=== PATIENT | female | born 1945 | race Caucasian/White ===

== ENCOUNTER → 2017-09-04 13:40 | Outpatient (CLI) | payer MEDICARE, SELFPAY | PROVIDERS: Family Provider Internal Medicine; PCP Internal Medicine; Visit Provider Nurse Practitioner Adult Health | DX: N39.0 Urinary tract infection, site not specified (principal) | CPT/HCPCS: 87086; 87088 ==

== ENCOUNTER 2017-11-21 14:32 | Emergency (ER) | payer MEDICARE, SELFPAY ==
[2017-11-21 14:33] VITALS: BP 152/80; PULSE 78; RESP 16; TEMP 36.7; O2SAT 98; BMI 25.7
--- NOTE | 2017-11-21 15:07 | ED.VISSUMM ---
- ER Visit Summary Date of Service: 11/21/17 Chief Complaint: I think I am dehydrated History of Present Illness: The patient is a 72 F who says that she believes that she is dehydrated. Yesterday she started with nausea and vomiting. She just has not felt well. She does admit to some dizziness with standing. She is also been having some watery diarrhea. She tried Imodium without any relief. She feels thirsty and has been using Pedialyte at home. She does have lower abdominal cramping but denies any other symptoms. 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 Physical Examination: Vital signs reviewed. HEENT exam unremarkable. Heart is regular rate and rhythm without murmurs. Lungs are clear to auscultation. Abdomen is soft and nontender. Extremities reveal no edema. Skin exam normal. Neurologic exam normal. Test Results: Labs are normal Emergency Department Course and Treatment: Laboratory studies are unremarkable. Patient was given IV fluids as well as oral Zofran and Tylenol. She feels improved. This likely is a GI illness. She will continue the Imodium at home. Will increase hydration. I will give her Zofran ODT for home. Will follow up with PCP Treatment Plan: [] Disposition: Discharge Impression: Nausea vomiting and diarrhea This note was generated with [employer] dictation software. It may contain incorrect words, spelling, and punctuation that were not noted in review of the chart prior to signing ED Disposition - Plan for ED Patient: Chief Complaint: General Illness Referrals: Magda Ayala DO [Primary Care Provider] -
[2017-11-21] MEDS: 0.9% Normal Saline 1,000 ML 999 ML IV (15:19)
[2017-11-21 15:29] LABS: Absolute Lymphocyte Count 1.78 X10^3/ul (0.83-4.51); Absolute Neutrophil Count 3.1 X10^3/uL (2.0-7.7); Basophil# 0.01 X10^3/uL; Basophil% 0.2 % (0-1); Eosinophil# 0.09 X10^3/uL; Eosinophils% 1.6 % (0-5); Hematocrit 46.3 % (37-47); Hemoglobin 15.9 g/dl (12.0-15.0); Lymphocyte # 1.78 X10^3/ul (4.0); Lymphocyte % 31.6 % (19-41); Mean Corp Hgb Conc 34.3 g/gl (32-36); Mean Corpuscular Hgb 33.2 pg (27.0-32.0); Mean Corpuscular Volume 96.7 fL (81-99); Mean Platelet Vol. 10.5 fl (6.2-12.0); Monocyte# 0.68 X10^3/uL; Monocyte% 12.1 % (0-10); Neutrophil # 3.07 X10^3/uL (2.7-7.7); Neutrophil % 54.5 % (47-70); Platelet Count 143 K/mm3 (150-450); RBC Distribution Width SD 41.6 fl (35.1-43.9); Red Blood Count 4.79 M/mm3 (4.2-5.4); White Blood Count 5.6 K/mm3 (4.4-11.0)
[2017-11-21 15:30] LABS: POSITIVE COUNT NO; POSITIVE DIFFERENTIAL NO; POSITIVE MORPHOLOGY NO
[2017-11-21 15:44] LABS: AST(SGOT) 30 U/L (15-37); Alanine Aminotransfer ALT/SGPT 41 U/L (13-56); Albumin, Serum 3.8 g/dL (3.2-5.0); Alkaline Phosphatase 66 U/L (45-117); Anion Gap 7 (5-15); BUN 19 mg/dL (7-18); BUN/Creat Ratio 18.4 RATIO (10-20); Calcium,Total 9.3 mg/dL (8.5-10.1); Chloride 101 mmol/L (98-107); Creatinine, Serum 1.03 mg/dL (0.55-1.02); EST Glomerular Filtration Rate 56 mL/min (>60); Est Glom Filt Rate - Afr Amer 67 mL/min (>60); Globulin 3.8 g/dL (2.2-4.2); Glucose 98 mg/dL (74-106); Lipase 167 U/L (73-393); Potassium 4.3 mmol/L (3.5-5.1); Protein, Total 7.6 g/dL (6.4-8.2); Sodium Level 136 mmol/L (136-145)
--- NOTE | 2017-11-21 15:51 | ED.DEP ---
ED Disposition - Plan for ED Patient: Disposition: Home or Assisted Living Chief Complaint: General Illness Instructions: ED Diet Vomiting Diarrhea Prescriptions: Ondansetron [Zofran Odt] 4 mg PO Q8H PRN PRN #10 tab PRN Reason: Nausea Referrals: Magda Ayala DO [Primary Care Provider] -
[2017-11-21] MEDS: Acetaminophen 500 MG Tablet 1000 MG PO (15:57)
[2017-11-21] MEDS: Ondansetron ODT 4 MG Tablet PO (15:57)
[2017-11-21 16:02] VITALS: BP 127/69; PULSE 71; RESP 16; O2SAT 98
== END 2017-11-21 16:07 | disposition home or self-care (01) ==
PROVIDERS: Emergency Provider Emergency Medicine; Family Provider Internal Medicine; PCP Internal Medicine
DX: R11.2 Nausea with vomiting, unspecified (principal); R19.7 Diarrhea, unspecified; I10 Essential (primary) hypertension; K58.9 Irritable bowel syndrome, unspecified; Z79.01 Long term (current) use of anticoagulants; Z79.899 Other long term (current) drug therapy; Z87.19 Personal history of other diseases of the digestive system
CPT/HCPCS: 80053; 83690; 85025; 96360; 99284; J7030; A4216

== ENCOUNTER → 2018-05-13 15:58 | Outpatient (CLI) | payer MEDICARE, SELFPAY ==
--- NOTE | 2018-05-13 16:03 | VDLE_ITS ---
[id number] VL^VDUL^Venous Duplex US- Unilateral [id number] [facility] Venous Doppler [address] [place] [address] Ordering Physician: Magda Ayala TAG_ENDED TAG_START Name: PARESH LIVINGSTON Study Date: 05/13/2018 04:08 PM Patient Location: [facility] : 1945 Gender: Female Age: 72 yrs TAG_ENDED Reason For Study: PAIN RIGHT LEFT CFV is compressible, spontaneous, competent GSV is normal. and demonstrates pulsatile venous flow. CFV is compressible, spontaneous, competent, Procedure and demonstrates pulsatile venous flow. Exam performed in department. FV is compressible, spontaneous, phasic, A preliminary report was called and/or faxed competent and demonstrates normal to Dr Ayala. augmentation. POP V is compressible, spontaneous, phasic, competent and demonstrates normal augmentation. T/P Trunk is compressible. PTV is compressible. LT PerV is compressible. Left SSV is dilated and NONCOMPRESSIBLE proximally. Left varicosity in calf is dilated and partially compressible. <> Interpretation Summary Deep veins of the left lower extremity are patent and compressible segmentally. There is no evidence of left lower extremity deep vein thrombosis. Valvular competence appears intact within the proximal deep venous system on the left . The left greater saphenous vein appears patent and compressible segmentally. Acute superficial thrombophlebitis is noted in the proximal portion of the left small saphenous vein, as well as superficial varicosities in the left calf. Pulsatile venous flow is noted in the common femoral veins bilaterally, which may be indicative of elevated central venous pressure. Clinical correlation is advised. TAG_START TAG_ENDED Ordering Physician: Magda Ayala Referring Physician: Magda Ayala Performed By: Dean, Mikayla, RDCS, RVT
== END ==
PROVIDERS: Family Provider Internal Medicine; PCP Internal Medicine; Referring Provider Internal Medicine; Visit Provider Internal Medicine
DX: M79.605 Pain in left leg (principal)
CPT/HCPCS: 93971

== ENCOUNTER → 2018-05-14 10:20 | Outpatient (CLI) | payer MEDICARE, SELFPAY ==
--- NOTE | 2018-05-14 10:22 | BI_ITS ---
MAMMOGRAPHY - BILATERAL SCREENING REASON FOR EXAM: Female, 72 years old. Routine annual screening examination. PERTINENT HISTORY: Mother with breast cancer. History of prior bilateral breast reduction surgery. TECHNIQUE: Digital bilateral breast radhika (3D mammographic acquisition) in the CC and MLO projections. 2-D mediolateral oblique (MLO) and craniocaudad (CC) views of both breasts were obtained. CAD: Full Field Digital Mammography with Computer Added Detection was performed. COMPARISON: Comparison is made with prior study dated April 30, 2017 and November 09, 2015. FINDINGS: Breast Composition: There are scattered areas of fibroglandular density. There are no dominant masses or suspicious calcifications. Stable small bilateral axillary lymph nodes as well as scattered bilateral microcalcifications. No other significant abnormalities are identified. There has been no significant change since the prior study. BI/SCREENING MAMM (CAD), BILAT IMPRESSION: Stable bilateral screening mammogram. Yearly follow-up mammogram recommended. (A) ASSESSMENT CATEGORY: BIRADS Category 2: Benign. A letter regarding these results will be sent to the patient by the facility within 30 days. Approximately 10% of breast cancers are not detected by mammography. A normal mammogram should not delay biopsy of a clinically suspicious abnormality. [id number] Electronically Signed: Oli Lynn MD at 15:25 EDT Tel [phone], Service support ,
--- NOTE | 2018-05-14 10:26 | BD_ITS ---
STUDY: DUAL ENERGY X-RAY ABSORPTIOMETRY / DXA REASON FOR EXAM: Female, 72 years old. The patient is postmenopausal. Loss of height. TECHNIQUE: Bone Mineral Density (BMD) measurements of lumbar spine and bilateral hips were obtained. COMPARISON: Comparison is made with prior study dated November 09, 2015. FINDINGS: Lumbar Spine (L1-L4): g/cm2 (1.880) / T-score (5.9) / Z-score (7.7) Findings are suggestive of normal bone density with a low fracture risk. Left Femur Total: g/cm2 (1.092) / T-score (0.7) / Z-score (2.4) Left Femoral Neck: g/cm2 (1.067) / T-score (0.2) / Z-score (2.1) Right Femur Total: g/cm2 (1.109) / T-score (0.8) / Z-score (2.5) Right Femoral Neck: g/cm2 (1.066) / T-score (0.2) / Z-score (2.1) The T-Scores on the most recent prior examination were: Lumbar Spine (L1-L4): There has been improvement of bone density since the previous examination. Left Femur Total: which represents a worsening of 0.4%. Right Femur Total: which represents a worsening of 0.5%. BD/Dexa Bone Density Study IMPRESSION: The patient is considered normal as outlined below according to World Ino Organization (WHO) criteria with a low fracture risk. There has been worsening of bone density since the previous examination. Reference Information: The T-score is the number of standard deviations above or below the standard which is normal for young adults at their peak bone mineral density. The World Health Organization (WHO) interprets the T-scores as follows: Above -1 Normal bone density Between -1 and -2.5 Osteopenia Equal to / or below -2.5 Osteoporosis As a practical clinical guideline, osteopenia may be graded as follows: Mild -1 through -1.5 Moderate -1.6 through -2.0 Severe -2.1 through -2.4 The Z-score is the number of standard deviations above or below age-matched controls. A Z-score of less than -1.5 would be considered abnormal. References: 1. NIH Osteoporosis and Related Bone Diseases http://www.osteo.org 2. International Society for Clinical Densitometry http://www.iscd.org 3. National Osteoporosis Foundation http://www.nof.org Electronically Signed: Oli Lynn MD at 10:06 EDT Tel [phone], Service support ,
== END ==
PROVIDERS: Family Provider Internal Medicine; PCP Internal Medicine; Referring Provider Internal Medicine; Visit Provider Internal Medicine
DX: Z12.31 Encounter for screening mammogram for malignant neoplasm of breast (principal); Z78.0 Asymptomatic menopausal state
CPT/HCPCS: 77063; 77067; 77080

== ENCOUNTER → 2018-06-17 12:05 | Outpatient (CLI) | payer MEDICARE, SELFPAY ==
--- NOTE | 2018-06-17 12:15 | MRI_ITS ---
STUDY: MRI BRAIN WITH AND WITHOUT CONTRAST (ATTENTION INTERNAL AUDITORY CANALS - I.A.C.'s) REASON FOR EXAM: Female, 73 years old. dizziness x 2 months, L hearing loss TECHNIQUE: Standardized multiplanar fat and water weighted pulse sequences were obtained. 8 ml of Gadavist contrast material was administered intravenously for the contrast portion of the examination. COMPARISON: May 05, 2016 FINDINGS: Normal bilateral temporal bones. Normal bilateral internal auditory canals. There is no demonstrated intracanalicular or cisternal vestibular schwannoma (acoustic neuroma). There is no enhancement of the bilateral VIIth or VIIIth cranial nerves. Normal bilateral cochlea, vestibules and semicircular canals. There is mild cerebral atrophy with widening of the extra-axial spaces and ventricular dilatation. There are multiple white matter hyperintensities, distributed throughout the deep white matter tracts of the cerebral hemispheres, consistent with moderate chronic white matter ischemic changes. Normal bilateral basal ganglia. Normal thalami. Normal flow voids within the major intracranial circulation suggesting patency by spin echo criteria. Normal venous enhancement. There is no enhancing intra-axial or extra-axial abnormality. There is no extra-axial fluid accumulation. Normal sella turcica, pituitary gland, infundibular stalk, optic chiasm and hypothalamus. Normal tectal plate and pineal gland. There are chronic white matter ischemic changes of the ace. The midbrain and medulla are otherwise normal. Normal cerebellum. Normal basal cisterns. No demonstrated orbital abnormality, within the constraints of a routine brain study. There is mucoperiosteal inflammatory disease of the paranasal sinuses consistent with mild chronic sinusitis. MRI/Brain W/WO Contrast IMPRESSION: There is no demonstrated intracanalicular or cisternal vestibular schwannoma (acoustic neuroma). Moderate chronic microvascular ischemic changes. Electronically Signed: Kaila Arboleda MD at 11:31 EST Tel , Service support ,
[2018-06-17 12:46] LABS: CREATININE FINGERSTICK 0.9 mg/dL (0.55-1.02); EGFR FINGERSTICK > 60.0000 mL/min (>60)
== END ==
PROVIDERS: Family Provider Internal Medicine; PCP Internal Medicine; Referring Provider Otolaryngology; Visit Provider Otolaryngology
DX: Z01.812 Encounter for preprocedural laboratory examination (principal); R42 Dizziness and giddiness
CPT/HCPCS: 70553; A9585

== ENCOUNTER 2018-08-22 11:23 | Observation (INO) | payer MEDICARE, SELFPAY ==
[2018-08-22] VITALS (11 sets, daily range): BP systolic 160–216; BP diastolic 53–124; PULSE 55–68; RESP 14–18; TEMP 36.3–36.7; O2SAT 95–98; BMI 26.2; BMI 26.0
--- NOTE | 2018-08-22 11:48 | EKG12_ITS ---
Test Reason : DIZZINESS Blood Pressure : / mmHG Vent. Rate : 059 BPM Atrial Rate : 059 BPM P-R Int : 188 ms QRS Dur : 070 ms QT Int : 422 ms P-R-T Axes : 022 -09 058 degrees QTc Int : 417 ms Sinus bradycardia Septal infarct , age undetermined Abnormal ECG Confirmed by BILL MATTHEWS, RUPA ([id number]), video editor CHRISTY MAE ([id number]) on 08/27/2018 8:35:44 AM Referred By: EMILIA Confirmed By:RUPA KHAN MD
--- NOTE | 2018-08-22 11:48 | RAD_ITS ---
STUDY: X-RAY CHEST REASON FOR EXAM: Female, 73 years old. Vertigo TECHNIQUE: AP portable chest COMPARISON: CT chest 03/11/2015 FINDINGS: Small calcified granulomata, lungs otherwise clear. Normal cardiomediastinal silhouette, mitch and pleural margins. No acute osseous or upper abdominal process. RAD/Chest 1 View IMPRESSION: No acute cardiopulmonary process. Electronically Signed: Masoud Wynn MD at 13:13 EST Tel , Service support ,
--- NOTE | 2018-08-22 11:48 | CT_ITS ---
STUDY: CT BRAIN WITHOUT CONTRAST REASON FOR EXAM: Female, 73 years old. Headache, nausea. RADIATION DOSAGE (If Supplied By Facility): CTDIvol = ( 44.99 ) mGy, DLP = ( 796.11 ) mGycm TECHNIQUE: Transaxial CT imaging of the brain was performed without administration of intravenous contrast material. Coronal and sagittal 2-D MPR Individualized dose optimization techniques were used for this CT. COMPARISON: MRI brain 06/17/2018, 05/05/2016. CT sinus 07/30/2015. FINDINGS: There is mucoperiosteal thickening of the sphenoid sinuses, paranasal sinuses otherwise clear. Mastoid air cells and middle ear cavities are clear. Craniofacial osseous structures normal. Extracranial soft tissues including orbital contents are normal. There is mild symmetric expansion of lateral ventricles and extra axial spaces consistent with age-related atrophy. There are moderate partially confluent chronic low-density changes in the deep white matter bifrontal and biparietal and a focus within the ace, most consistent with chronic microvascular ischemic disease. There is no acute intracranial bleed, mass or mass effect nor any specific evidence of acute territorial infarct. CT/Brain/Head without Contrast IMPRESSION: No acute intercranial process. Chronic involutional features of the brain as described above, are concordant with those seen on prior MRI imaging. No definitive acute intracranial process is evident. Electronically Signed: Masoud Wynn MD at 13:10 EST Tel , Service support ,
[2018-08-22 12:10] LABS: Absolute Lymphocyte Count 1.66 X10^3/ul (0.83-4.51); Absolute Neutrophil Count 2.9 X10^3/uL (2.0-7.7); Basophil# 0.02 X10^3/uL; Basophil% 0.4 % (0-1); Eosinophil# 0.15 X10^3/uL; Eosinophils% 2.9 % (0-5); Hematocrit 44.4 % (37-47); Hemoglobin 14.6 g/dl (12.0-15.0); Lymphocyte # 1.66 X10^3/ul (4.0); Mean Corp Hgb Conc 32.9 g/gl (32-36); Mean Corpuscular Hgb 31.5 pg (27.0-32.0); Mean Corpuscular Volume 95.9 fL (81-99); Monocyte# 0.42 X10^3/uL; Monocyte% 8.1 % (0-10); Neutrophil # 2.93 X10^3/uL (2.7-7.7); Neutrophil % 56.4 % (47-70); Platelet Count 161 K/mm3 (150-450); RBC Distribution Width CV 12.6 % (11.6-14.6); RBC Distribution Width SD 43.5 fl (35.1-43.9); Red Blood Count 4.63 M/mm3 (4.2-5.4); White Blood Count 5.2 K/mm3 (4.4-11.0)
[2018-08-22 12:12] LABS: POSITIVE COUNT NO; POSITIVE DIFFERENTIAL NO; POSITIVE MORPHOLOGY NO
[2018-08-22] MEDS: 0.9% Normal Saline 1,000 ML 999 ML IV (12:12)
[2018-08-22] MEDS: Ondansetron 4 MG/2 ML Vial IV (12:12)
[2018-08-22] MEDS: LORazepam 2 MG/ML Syringe 0.5 MG IV (12:12)
[2018-08-22 12:26] LABS: Anion Gap 11 (5-15); BUN 17 mg/dL (7-18); BUN/Creat Ratio 23.2 RATIO (10-20); Calcium,Total 9.7 mg/dL (8.5-10.1); Chloride 106 mmol/L (98-107); Creatinine, Serum 0.73 mg/dL (0.55-1.02); EST Glomerular Filtration Rate 82 mL/min (>60); Est Glom Filt Rate - Afr Amer 99 mL/min (>60); Estimated Creatinine Clearance 47.27 ml/min; Glucose 92 mg/dL (74-106); International Normalized Ratio 1.1; Potassium 4.2 mmol/L (3.5-5.1); Sodium Level 144 mmol/L (136-145)
[2018-08-22 12:27] LABS: Partial Thromboplast Time 33.6 Seconds (24.1-36.2)
[2018-08-22 12:34] LABS: Bacteria 0 SEEN /hpf (None Seen); Mucous, Urine 0 SEEN /hpf (<or=2+); Red Blood Cells-Urine 0 SEEN /hpf (0-5); Squamous Epithelial Cells - UA 0 SEEN /hpf (5-10)
[2018-08-22 12:43] LABS: Color, Urine Yellow (Yellow); Glucose, Dipstick Normal (Normal); Ketone-Dipstick Negative (Negative); Leukocyte Esterase-Dipstick 100 /ul (Negative); Nitrite-Dipstick Negative (Negative); Occult Blood-Urine Negative /ul (Negative); Protein-Dipstick Negative (Negative); Specific Gravity, Urine 1.005 (1.002-1.030); Urine Bilirubin Dipstick Negative (Negative); Urine Clarity Clear (Clear); Urine Urobilinogen Normal (Normal)
[2018-08-22 12:46] LABS: White Blood Cells 0-5 SEEN /hpf (0-5)
--- NOTE | 2018-08-22 14:45 | ED.VISSUMM ---
- ER Visit Summary Date of Service: 08/22/18 Chief Complaint: Dizziness History of Present Illness: The patient is a 73 F who presents with dizziness intermittently for 3 days. It started on Sunday at 2 AM when she woke up. She was dizzy and felt the room spinning. She had an unsteady gait. She felt better on Sunday, yesterday, and then today she had worsening symptoms. She reports worsening vertigo, nausea, and a headache. She had dizziness in the past and saw ENT, but was not sure what caused her symptoms. She has a history of high blood pressure but is compliant with her medications. She also has a history of clotting disorders and ischemic colitis, so she takes Eliquis. No hearing symptoms. No recent fever. No neck pain. No vision changes, speech changes, focal weakness, or focal numbness. Physical Examination: Afebrile and vital signs unremarkable except for a blood pressure of 216/74. Patient is alert and oriented. No acute distress. HEENT exam unremarkable. Cranial nerves grossly intact. Heart regular. Lungs clear. Good strength and sensation. No focal or lateralizing neurologic abnormalities. Skin appears normal. Test Results: EKG showed sinus rhythm at a rate of 59. CBC and BMP unremarkable. Coags normal. Urinalysis unremarkable. Troponin normal. Chest x-ray normal. CT brain normal. Emergency Department Course and Treatment: Patient had an EKG which was unremarkable. She was placed on a monitor. Treated with fluids, Ativan, Zofran. Orthostatics were done and were negative. Patient had improvement of her symptoms but some continued dizziness. She remained hypertensive and was treated with labetalol. Her workup here was unremarkable. She had an MRI in the past which was unremarkable but has not had vascular imaging. I was concerned for acute vestibular syndrome. I was also concerned given her continued hypertension. I spoke with the hospitalist to admit for further care. Treatment Plan: As above Disposition: Admission Impression: 1. Vertigo 2. Hypertension This note was generated with [employer] dictation software. It may contain incorrect words, spelling, and punctuation that were not noted in review of the chart prior to signing ED Disposition - Plan for ED Patient: Referrals: Magda Ayala DO [Primary Care Provider] -
--- NOTE | 2018-08-22 14:49 | ED.DCSUM_ITS ---
- ER Visit Summary Date of Service: 08/22/18 Chief Complaint: Dizziness History of Present Illness: The patient is a 73 F who presents with dizziness intermittently for 3 days. It started on Sunday at 2 AM when she woke up. She was dizzy and felt the room spinning. She had an unsteady gait. She felt be tter on Sunday, yesterday, and then today she had worsening symptoms. She reports worsening vertigo, nausea, and a headache. She had dizziness in the past and saw ENT, but was not sure what caused her symptoms. She has a history of high blood pressure but is compliant with her medications. She also has a history of clotting disorders and ischemic colitis, so she takes Eliquis. No hearing symptoms. No recent fever. No neck pain. No vision changes, speech changes, focal weakness, or focal numbness. Physical Examination: Afebrile and vital signs unremarkable except for a blood pressure of 216/74. Patient is alert and oriented. No acute distress. HEENT exam unremarkable. Cranial nerves grossly intact. Heart regular. Lungs clear. Good strength and sensation. No focal or lateralizing neurologic abnormalities. Skin appears normal. Test Results: EKG showed sinus rhythm at a rate of 59. CBC and BMP unremarkable. Coags normal. Urinalysis unremarkable. Troponin normal. Chest x-ray normal. CT brain normal. Emergency Department Course and Treatment: Patient had an EKG which was unrem arkable. She was placed on a monitor. Treated with fluids, Ativan, Zofran. Orthostatics were done and were negative. Patient had improvement of her symptoms but some continued dizziness. She philipp ined hypertensive and was treated with labetalol. Her workup here was unremarkable. She had an MRI in the past which was unremarkable but has not had vascular imaging. I was concerned for acute ves tibular syndrome. I was also concerned given her continued hypertension. I spoke with the hospitalist to admit for further care. Treatment Plan: As above Disposition: Admission Impression: 1. Vertigo 2. Hypertension This note was generated with [employer] dictation software. It may contain incorrect words, spelling, and punctuation that were not noted in review of the chart prior to signing ED Disposition - Plan for ED Patient: Referrals: Magda Ayala DO [Primary Care Provider] -
--- NOTE | 2018-08-22 16:00 | MRI_ITS ---
STUDY: MRI BRAIN WITHOUT CONTRAST REASON FOR EXAM: Female, 73 years old. Hypertensive headache and dizziness TECHNIQUE: Standardized multiplanar fat and water weighted pulse sequences were obtained. COMPARISON: June 17, 2018 FINDINGS: Mild atrophy and moderate periventricular white matter ischemic changes with most severe involvement of the parieto-occipital regions as well as extension into the corpus callosum without mass effect or restricted diffusion Chronic ischemic changes with ace Normal bilateral basal ganglia. Normal thalami. There is no extra-axial fluid accumulation. Normal flow voids within the major intracranial circulation suggesting patency by spin echo criteria. Normal sella turcica, pituitary gland, infundibular stalk, optic chiasm and hypothalamus. Normal tectal plate and pineal gland. Normal midbrain, ace and medulla. Normal cerebellum. Normal basal cisterns. Normal bilateral temporal bones. Normal bilateral internal auditory canals. No demonstrated orbital abnormality, within the constraints of a routine brain study. Minor mucosal thickening of the ethmoid and sphenoid sinus. Normal calvarium and skull base. Normal visualized soft tissue structures. Normal visualized upper cervical spine. No significant change since prior exam MRI/Brain without Contrast IMPRESSION: Chronic periventricular white matter ischemic changes and chronic ischemic changes within the ace. No evidence for acute infarct Electronically Signed: Andrew Horton MD at 20:18 EST , Service support ,
--- NOTE | 2018-08-22 16:00 | MRI_ITS ---
STUDY: MRA OF THE HEAD WITHOUT CONTRAST REASON FOR EXAM: Female, 73 years old. Hypertensive headache TECHNIQUE: 3-D xlii-rj-eecdtf (TOF) imaging was performed with MIPs. The study was performed unenhanced. COMPARISON: None. FINDINGS: Normal bilateral petrous carotid arteries. Normal right cavernous carotid artery with a normal supraclinoid bifurcation. Normal left cavernous carotid artery with a normal supraclinoid bifurcation. Normal right A1 segments of the anterior cerebral artery. Normal left A1 segments of the anterior cerebral artery. Normal intact anterior communicating artery (ACOM). Normal bilateral A2 segments of the anterior cerebral arteries. Normal right M1 and M2 segments of the middle cerebral arteries, with a normal M1 bifurcation. Normal left M1 and M2 segments of the middle cerebral arteries, with a normal M1 bifurcation. Normal right posterior communicating artery (PCOM). Left posterior communicating artery not visualized consistent with normal variant Dominant left vertebral artery which is normal caliber. There is mild diffuse narrowing of the right vertebral which may be normal variant. Normal basilar artery with a normal basilar bifurcation. The visualized bilateral superior cerebellar (SCA) arteries are normal. Normal bilateral P1, P2 and visualized P3 segments of the posterior cerebral arteries. There is no demonstrated aneurysm of the [place] of [place]. There is no major vessel occlusion or hemodynamically significant stenosis. There is no demonstrated abnormality of the visualized brain. MRI/MRA Head ONLY without Contrast IMPRESSION: Normal MRA of the head Electronically Signed: Andrew Horton MD at 20:32 EST , Service support ,
--- NOTE | 2018-08-22 16:00 | MRI_ITS ---
STUDY: MRA NECK WITH AND WITHOUT CONTRAST REASON FOR EXAM: Female, 73 years old. Hypertensive headache TECHNIQUE: 3-D invf-ro-kynkii (TOF) imaging was performed in an 1.5 T MRI scanner. 7 ml of Gadavist was administered for the contrast enhanced images. COMPARISON: None. FINDINGS: RIGHT CAROTID ARTERIES: Normal right common carotid artery (CCA). Mild plaquing of the right common carotid bulb. Mild plaquing of the origin of the right internal carotid (ICA) artery without a hemodynamically significant stenosis. Normal visualized cervical portion of the right internal carotid artery. Normal origin of the right external carotid artery (ECA). LEFT CAROTID ARTERIES: Normal left common carotid artery (CCA). Mild plaquing of the left common carotid bulb. Mild plaquing of the origin of the left internal carotid (ICA) artery without a hemodynamically significant stenosis. Normal visualized cervical portion of the left internal carotid artery. Normal origin of the left external carotid artery (ECA). VERTEBRAL ARTERIES: Normal antegrade flow within the bilateral vertebral artery without a hemodynamically significant stenosis. MRI/MRA Neck WITH and W/O Contrast IMPRESSION: Mild atherosclerotic disease. No evidence for hemodynamically significant stenosis utilizing NASCET criteria Electronically Signed: Andrew Horton MD at 20:34 EST , Service support ,
[2018-08-22] MEDS: Lisinopril 20 MG Tablet PO (16:18)
--- NOTE | 2018-08-22 17:45 | HP.PCM_ITS ---
Problem List (1) Ataxia Status: Acute (2) Dizziness Status: Acute History of Present Illness Date of Admission: 08/22/18 Chief Complaint: Dizziness, ataxia The patient is a 73 year old F who was seen in the emergency room at [facility] with a chief complaint of dizziness and ataxia which began 48 hours ago. Patient states that she had a sensation of things spinning around her, she denies any headache, nausea, focal weakness, or vomiting. Patient had an episode of dizziness late last year and had an MRI of her auditory canals which did not show any abnormality. At that time the patient also had some hearing loss in her left ear which was attributed to viral illness. Workup in the emergency room included a CT of the brain which showed no acute pathology, all lab work was unremarkable. Patient's blood pressure was elevated initially at 216/74, repeat blood pressures remained elevated with her final blood pressure in the emergency room of 188/82-ER physician had given the patient IV labetalol prior to her discharge from the emergency room to the floor. Patient will be admitted to the PCU for ataxia and dizziness, MRA of the head and neck will be obtained as well as an MRI of the brain. Patient will remain on her current medications and her blood pressure will be monitored. Patient will be given an extra dose of lisinopril. NIH stroke scores will be obtained Past Medical History Past Medical History (Chronic Problems): Chronic Problems Dyslipidemia (Chronic) Benign hypertension (Chronic) Allergies amoxicillin [Amoxicillin] Allergy (Verified 08/22/18 11:25) Swelling azithromycin [From Zithromax] Allergy (Verified 08/22/18 11:25) Rash Penicillins Allergy (Verified 08/22/18 11:25) Hives Sulfa (Sulfonamide Antibiotics) Allergy (Verified 08/22/18 11:25) Angioedema sulfamethoxazole [From Septra] Allergy (Verified 08/22/18 11:25) Rash triamcinolone acetonide [From Nasacort AQ] Allergy (Verified 08/22/18 11:25) Rash trimethoprim [From Septra] Allergy (Verified 08/22/18 11:25) Rash codeine Adverse Reaction (Verified 08/22/18 15:03) Vomiting nitrofurantoin [From Macrobid] Adverse Reaction (Verified 08/22/18 11:25) Upset Stomach Home Medications: Ambulatory Orders Medication Instructions Recorded Atorvastatin Calcium [Lipitor] 20 mg PO QHS 08/05/13 Citalopram Hydrobromide [Celexa] 10 mg PO DAILY 08/05/13 Ergocalciferol [Vitamin D] 6,000 unit PO DAILY 08/05/13 Multivitamins,Ther W-Minerals 1 tablet PO DAILY 08/05/13 [Multivitamin With Minerals] Zolpidem Tartrate [Ambien] 10 mg PO QHS PRN PRN 08/05/13 Acetaminophen [Tylenol Tablet] 650 mg PO Q4H PRN PRN #20 tablet 08/08/13 Apixaban [Eliquis] 2.5 mg PO BID 11/21/17 Lisinopril [Prinivil] 20 mg PO DAILY 11/21/17 Metoprolol(XL)Succ [Toprol Xl 50 mg PO DAILY 11/21/17 (Beta Johan)] Ubidecarenone [Coq-10] 200 mg PO DAILY 08/22/18 Surgical History: cholecystectomy, - - Breast reduction, tubal ligation, phlebectomy left leg, knee arthroscopy Psychiatric History: No pertinent psych hx [employer] History: No pertinent [employer] history Lives: Spouse/ Significant Other Smoking Status: Never smoker Tobacco Use: Non-smoker Alcohol: None Drugs: None - *Family History Maternal History Items: No pertinent history Paternal History Items: Stroke Review of Systems Constitutional: Denies: Anorexia, Chills, Fever, Night Sweats, Malaise, Weakness , Weight Change, Fatigue Eyes: Denies: Cataracts, Conjunctivae Inflammation, Double vision, Drainage, Redness, Vision Change HEENT: Denies: Difficulty Swallowing, Dysphasia, Ear Pain, Eye Pain, Head Aches, Hearing Changes, Nasal bleeding, Nasal Congestion, Post Nasal Drip Cardiovascular: Denies: Chest Pain, Claudication, Chest Pressure, Chest Tightness, Edema, Orthopnea, Palpitations, Paroxysmal Noc. Dyspnea Respiratory: Denies: Cough, Hemoptysis, Pleuritic Pain, Shortness of Breath, Shortness of breath at rest, Shortness of breath upon exertion, Sputum production Gastrointestinal: Denies: Abdominal Pain, Constipation, Diarrhea, Hematemesis, Hematochezia, Nausea, Melena, Vomiting Genitourinary: Denies: Dysuria, Frequency, Hematuria, Hesitancy, Urgency Gynecological: Denies: Breast symptoms Musculoskeletal: Denies: Foot Pain, Hand Pain, Joint Pain, Joint stiffness, Joint swelling, Joint Tenderness, Leg Pain Skin: Denies: Dryness, Pruritis, Rash Neurological: Reports: Balance problems, - - Dizziness as outlined in chief complaint. Denies: Blurred vision, Double vision, Slurred speech, Difficulty swallowing, Focal weakness, Headaches, Incoordination, Numbness, Tingling Psychiatric: Denies: Anxiety, Depression, Homicidal Ideations, Suicidal Ideations Endocrine: Denies: Change in Body Habitus, Heat/ Cold Intolerance, Polydipsia, Polyuria Hematologic/ Lymphatic: Denies: Adenopathy, Anemia, Easy Bruising, Easy Bleeding, Petechiae, Purpura VTE Information - Inpt Only VTE Present on Admission: No VTE Mechan Device Prophylaxis: None VTE Pharm Prophylaxis ordered?: No Reason prophylaxis not ordered:: Medical Contraindication - Patient on Eliquis Patient Problems: Active and Suspected Problems Ataxia (Acute) Dizziness (Acute) - Physical Exam General: Alert, Oriented x3, Cooperative, No apparent distress, Well developed, Well nourished HEENT: Atraumatic, PERRLA, EOMI, Normocephalic Oral: Moist Mucosa Neck: Supple, No JVD, Negative Carotid Bruits, No Nuchal Rigidity, Trachea Midline, Thyroid Normal Size and Texture Lungs: Clear to auscultation, Normal air movement, No rhonchi, No wheeze, No rales Cardiovascular: Regular rate, Regular Rhythm, Normal S1, Normal S2, No murmurs, No Ectopic Activity, PMI Normal, No rub noted, No Gallop Abdomen: Bowel Sounds Present, Soft, Non Tender, Non-Distended, No hernias noted Extremities: No clubbing, No cyanosis, No edema, Capillary Refill Less than 3 Seconds Skin: No rashes, No breakdown Musculoskeletal: No Tenderness to Palpation of Joints or Extremities Neurological: Cranial nerves II-XII grossly intact, Neuro grossly intact, Sensory exam intact to light touch and pain, Coordination normal Psych/Mental Status: Normal Affect, Appropriate, Alert and oriented to time, place, person, mood and affect Vital Signs Temp Pulse Resp BP Pulse Ox 97.3 F L 61 16 188/82 H 97 08/22/18 16:01 08/22/18 16:01 08/22/18 16:01 08/22/18 16:08/22/18 16:01 Oxygen Delivery Method Room Air Weight: 75.2 kg Body Mass Index (BMI) 26.0 Laboratory Tests Past 24 Hrs 08/22/18 08/22/18 08/22/18 12:00 12:00 12:00 WBC 5.2 RBC 4.63 Hgb 14.6 Hct 44.4 MCV 95.9 MCH 31.5 MCHC 32.9 RDW 12.6 RDW Differential 43.5 Plt Count 161 MPV 11.0 Immature Gran % (Auto) 0.200 Neut % (Auto) 56.4 Lymph % (Auto) 32.0 [place] % (Auto) 8.1 Eos % (Auto) 2.9 Baso % (Auto) 0.4 Absolute Neuts (auto) 2.9 Absolute Lymphs (auto) 1.66 Total Counted Not Reportable PT 14.0 INR 1.1 APTT 33.6 Sodium 144 Potassium 4.2 Chloride 106 Carbon Dioxide 27.0 Anion Gap 11 BUN 17 Creatinine 0.73 Estim Creat Clear Calc 47.27 Est GFR (MDRD) Af Amer 99 Est GFR (MDRD) Non-Af 82 BUN/Creatinine Ratio 23.2 H Glucose 92 Calcium 9.7 Troponin I < 0.015 Urine Color Urine Clarity Urine pH Ur Specific [place] Urine Protein Urine Glucose (UA) Urine Ketones Urine Occult Blood Urine Nitrite Urine Bilirubin Urine Urobilinogen Ur Leukocyte Esterase Urine RBC Urine WBC Ur Squamous Epith Cells Urine Bacteria Urine Mucus 08/22/18 12:15 WBC RBC Hgb Hct MCV MCH MCHC RDW RDW Differential Plt Count MPV Immature Gran % (Auto) Neut % (Auto) Lymph % (Auto) [place] % (Auto) Eos % (Auto) Baso % (Auto) Absolute Neuts (auto) Absolute Lymphs (auto) Total Counted PT INR APTT Sodium Potassium Chloride Carbon Dioxide Anion Gap BUN Creatinine Estim Creat Clear Calc Est GFR (MDRD) Af Amer Est GFR (MDRD) Non-Af BUN/Creatinine Ratio Glucose Calcium Troponin I Urine Color Yellow Urine Clarity Clear Urine pH 7.0 Ur Specific [place] 1.005 Urine Protein Negative Urine Glucose (UA) Normal Urine Ketones Negative Urine Occult Blood Negative Urine Nitrite Negative Urine Bilirubin Negative Urine Urobilinogen Normal Ur Leukocyte Esterase 100 H Urine RBC 0 SEEN Urine WBC 0-5 SEEN Ur Squamous Epith Cells 0 SEEN Urine Bacteria 0 SEEN Urine Mucus 0 SEEN Assessment/Plan All Active Problems Ataxia (Acute) Dizziness (Acute) Hyperkalemia (Resolved) Leukocytosis (Resolved) Lower GI bleed (Resolved) #1 dizziness-etiology unclear at this time, it is possible the patient has benign vertigo-patient will be placed and observation status on PCU, NIH scores will be monitored, patient will have an MRA of her head and neck as well as an MRI of her brain tomorrow. Patient will remain on her home meds, I will not place her on an aspirin due to the fact she is on Eliquis. She will be seen by PT and OT. I do not believe patient needs an echocardiogram ordered at this time and I do not believe that she needs to see neurology in consultation at this time. Patient will be placed on Valium 2 mg 4 times a day to see if this helps with her dizziness. #2 uncontrolled hypertension-patient will be given an extra dose of lisinopril this evening, her blood pressure will be monitored #3 history of coagulopathy and multiple VTE's-patient states that she is on Eliquis due to the fact she has a coagulopathy, she also states she has had more than one incidence of VTE. #4 hyperlipidemia-patient is on Lipitor Code Visit OBSV E&M: 88668 Initial observation care L3
--- NOTE | 2018-08-22 18:15 | NURSING ---
Pt to MRI via MRI staff
[2018-08-22] MEDS: diazePAM 2 MG Tablet PO (21:24)
[2018-08-22] MEDS: Atorvastatin Calcium 20 MG Tablet PO (21:25)
[2018-08-22] MEDS: APIXABAN 2.5 MG TABLET PO (21:28)
[2018-08-23] VITALS (7 sets, daily range): BP systolic 143–161; BP diastolic 61–70; PULSE 61–64; RESP 16–18; TEMP 36.6–37; O2SAT 95–97; BMI 26.0
[2018-08-23] MEDS: Metoprolol(XL)Succ 50 MG Tablet PO (09:26)
[2018-08-23] MEDS: diazePAM 2 MG Tablet PO (09:26)
[2018-08-23] MEDS: APIXABAN 2.5 MG TABLET PO (09:26)
[2018-08-23] MEDS: Lisinopril 20 MG Tablet PO (09:26)
[2018-08-23] MEDS: Citalopram 20 MG Tablet PO (09:26)
[2018-08-23] MEDS: hydroCHLOROthiazide 12.5mg 12.5 MG PO (10:48)
--- NOTE | 2018-08-23 10:52 | DCINST_ITS ---
- Discharge Diagnoses Current Active Problems: Current Active and Chronic Problems Vertigo You will use the following diet at home:: No restrictions Discharge Activity: Return to Normal Activity Call your doctor if you observe: Numbness or Tingling, Shortness of breath, Dizziness, Fainting spells, Chest pain Allergies/Adverse Reactions: Allergies amoxicillin [Amoxicillin] Allergy (Verified 08/22/18 11:25) Swelling azithromycin [From Zithromax] Allergy (Verified 08/22/18 11:25) Rash Penicillins Allergy (Verified 08/22/18 11:25) Hives Sulfa (Sulfonamide Antibiotics) Allergy (Verified 08/22/18 11:25) Angioedema sulfamethoxazole [From Septra] Allergy (Verified 08/22/18 11:25) Rash triamcinolone acetonide [From Nasacort AQ] Allergy (Verified 08/22/18 11:25) Rash trimethoprim [From Septra] Allergy (Verified 08/22/18 11:25) Rash codeine Adverse Reaction (Verified 08/22/18 15:03) Vomiting nitrofurantoin [From Macrobid] Adverse Reaction (Verified 08/22/18 11:25) Upset Stomach Medications to take at Discharge Atorvastatin Calcium [Lipitor] 20 mg PO QHS 08/05/13 Citalopram Hydrobromide [Celexa] 10 mg PO DAILY 08/05/13 Ergocalciferol [Vitamin D] 6,000 unit PO DAILY 08/05/13 Multivitamins,Ther W-Minerals [Multivitamin With Minerals] 1 tablet PO DAILY 08/05/13 Zolpidem Tartrate [Ambien] 10 mg PO QHS PRN PRN 08/05/13 Acetaminophen [Tylenol Tablet] 650 mg PO Q4H PRN PRN #20 tablet 08/08/13 Apixaban [Eliquis] 2.5 mg PO BID 11/21/17 Lisinopril [Prinivil] 20 mg PO DAILY 11/21/17 Metoprolol(XL)Succ [Toprol Xl (Beta Johan)] 50 mg PO DAILY 11/21/17 Ubidecarenone [Coq-10] 200 mg PO DAILY 08/22/18 Meclizine HCl 25 mg PO Q6H PRN #20 tablet 08/23/18 hydroCHLOROthiazide [Hydrochlorothiazide] 12.5 mg PO DAILY #30 capsule 08/23/18 The following prescriptions were given: hydroCHLOROthiazide [Hydrochlorothiazide] 12.5 mg PO DAILY #30 capsule Meclizine HCl 25 mg PO Q6H PRN #20 tablet PRN Reason: Vertigo Primary Care Physician: Magda Ayala DO [Primary Care Provider] - Please follow up with your Primary Care Physician in: 1 Week Test Results: Test results from this visit will be discussed in further detail at your follow- up appointment, if applicable. Please Follow Up With: Tim Crisostomo MD - May see Dr. Michele ENT if preferred When: Call for soonest available appt. Proposed Discharge Date: 08/23/18
--- NOTE | 2018-08-23 10:54 | PCM.DC.SUM ---
Discharge Date and Diagnosis Date of Admission: 08/22/18 Date of Discharge: 08/23/18 - Primary Discharge Diagnosis Active and Suspected Problems 1. Vertigo, suspected BPPV-CVA ruled out 2. Hypertensive urgency 3. Hyperlipidemia 4. 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 Chronic involutional features of the brain as described above, are concordant with those seen on prior MRI imaging. No definitive acute intracranial process is evident. Electronically Signed: Masoud Wynn MD at 13:10 EST Tel , Service support , Chest X-Ray 08/22/18 11:48 IMPRESSION: No acute cardiopulmonary process. Electronically Signed: Masoud Wynn MD at 13:13 EST Tel , Service support , Brain MRI 08/22/18 16:00 IMPRESSION: Chronic periventricular white matter ischemic changes and chronic ischemic changes within the ace. No evidence for acute infarct Electronically Signed: Andrew Horton MD at 20:18 EST , Service support , Head MRA 08/22/18 16:00 IMPRESSION: Normal MRA of the head Electronically Signed: Andrew Horton MD at 20:32 EST , Service support , Neck MRA 08/22/18 16:00 IMPRESSION: Mild atherosclerotic disease. No evidence for hemodynamically significant stenosis utilizing NASCET criteria Electronically Signed: Andrew Horton MD at 20:34 EST , Service support , Operations: None Procedures: None Summary of Care Provided: The patient is a 73 year old F admitted 08/22/2018 due to dizziness, ataxia. 1. Vertigo, suspected BPPV-CVA ruled out. MRI of brain without acute infarct. Neck MRA with no evidence of hemodynamically significant stenosis. Patient symptoms improved with Valium. Patient wishes to try meclizine at discharge. Follow-up with primary care physician in 1 week. Follow-up with ENT early next week/soonest available for vestibular therapy. 2. Hypertensive urgency-improved. Continue home lisinopril, metoprolol regimen. Additionally added on hydrochlorothiazide 12.5 mg daily. This can be titrated up as outpatient if blood pressure remains above goal. 3. Hyperlipidemia-continue statin. 4. 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 General: Alert, Oriented x3, Cooperative, No apparent distress HEENT: Atraumatic, PERRLA, EOMI, Normocephalic Oral: Moist Mucosa Neck: Supple, No JVD, Negative Carotid Bruits Lungs: Clear to auscultation, Normal air movement Cardiovascular: Regular rate, Regular Rhythm, Normal S1, Normal S2, No murmurs Abdomen: Bowel Sounds Present, Soft, Non Tender, Non-Distended Extremities: No clubbing, No cyanosis, No edema, Capillary Refill Less than 3 Seconds Skin: No rashes, No breakdown Musculoskeletal: No Tenderness to Palpation of Joints or Extremities Neurological: Cranial nerves II-XII grossly intact, Neuro grossly intact Psych/Mental Status: Normal Affect, Appropriate, Alert and oriented to time, place, person, mood and affect Patient seen and examined prior to discharge. Physical assessment as noted above. Patient is stable for discharge with follow up recommendations as noted above. This patient was seen by DIANA Mariscal under the supervision of Dr. Bobby. - Physical Exam Vital Signs Temp Pulse Resp BP Pulse Ox 98.6 F 61 18 161/70 H 95 08/23/18 07:29 08/23/18 09:26 08/23/18 07:29 08/23/18 07:29 08/23/18 07:29 Oxygen Delivery Method Room Air Weight: 165 lb 12.602 oz Body Mass Index (BMI) 26.0 Intake and Output for Last 24 Hours 08/21/18 08/22/18 08/23/18 23:59 23:59 23:59 Intake Total 240 / 240 60 / 60 Balance 240 / 240 60 / 60 Laboratory Tests Past 24 Hrs 08/22/18 08/22/18 08/22/18 12:00 12:00 12:00 WBC 5.2 RBC 4.63 Hgb 14.6 Hct 44.4 MCV 95.9 MCH 31.5 MCHC 32.9 RDW 12.6 RDW Differential 43.5 Plt Count 161 MPV 11.0 Immature Gran % (Auto) 0.200 Neut % (Auto) 56.4 Lymph % (Auto) 32.0 [place] % (Auto) 8.1 Eos % (Auto) 2.9 Baso % (Auto) 0.4 Absolute Neuts (auto) 2.9 Absolute Lymphs (auto) 1.66 Total Counted Not Reportable PT 14.0 INR 1.1 APTT 33.6 Sodium 144 Potassium 4.2 Chloride 106 Carbon Dioxide 27.0 Anion Gap 11 BUN 17 Creatinine 0.73 Estim Creat Clear Calc 47.27 Est GFR (MDRD) Af Amer 99 Est GFR (MDRD) Non-Af 82 BUN/Creatinine Ratio 23.2 H Glucose 92 Calcium 9.7 Troponin I < 0.015 Urine Color Urine Clarity Urine pH Ur Specific [place] Urine Protein Urine Glucose (UA) Urine Ketones Urine Occult Blood Urine Nitrite Urine Bilirubin Urine Urobilinogen Ur Leukocyte Esterase Urine RBC Urine WBC Ur Squamous Epith Cells Urine Bacteria Urine Mucus 08/22/18 12:15 WBC RBC Hgb Hct MCV MCH MCHC RDW RDW Differential Plt Count MPV Immature Gran % (Auto) Neut % (Auto) Lymph % (Auto) [place] % (Auto) Eos % (Auto) Baso % (Auto) Absolute Neuts (auto) Absolute Lymphs (auto) Total Counted PT INR APTT Sodium Potassium Chloride Carbon Dioxide Anion Gap BUN Creatinine Estim Creat Clear Calc Est GFR (MDRD) Af Amer Est GFR (MDRD) Non-Af BUN/Creatinine Ratio Glucose Calcium Troponin I Urine Color Yellow Urine Clarity Clear Urine pH 7.0 Ur Specific [place] 1.005 Urine Protein Negative Urine Glucose (UA) Normal Urine Ketones Negative Urine Occult Blood Negative Urine Nitrite Negative Urine Bilirubin Negative Urine Urobilinogen Normal Ur Leukocyte Esterase 100 H Urine RBC 0 SEEN Urine WBC 0-5 SEEN Ur Squamous Epith Cells 0 SEEN Urine Bacteria 0 SEEN Urine Mucus 0 SEEN Discharge Diet: No Restrictions, 2000 mg Sodium Diet Discharge Activity: Return to Normal Activity Call your doctor if you observe: Numbness or Tingling, Shortness of breath, Dizziness, Fainting spells, Chest pain Home Medications: Medications to take at Discharge Atorvastatin Calcium [Lipitor] 20 mg PO QHS 08/05/13 Citalopram Hydrobromide [Celexa] 10 mg PO DAILY 08/05/13 Ergocalciferol [Vitamin D] 6,000 unit PO DAILY 08/05/13 Multivitamins,Ther W-Minerals [Multivitamin With Minerals] 1 tablet PO DAILY 08/05/13 Zolpidem Tartrate [Ambien] 10 mg PO QHS PRN PRN 08/05/13 Acetaminophen [Tylenol Tablet] 650 mg PO Q4H PRN PRN #20 tablet 08/08/13 Apixaban [Eliquis] 2.5 mg PO BID 11/21/17 Lisinopril [Prinivil] 20 mg PO DAILY 11/21/17 Metoprolol(XL)Succ [Toprol Xl (Beta Johan)] 50 mg PO DAILY 11/21/17 Ubidecarenone [Coq-10] 200 mg PO DAILY 08/22/18 Meclizine HCl 25 mg PO Q6H PRN #20 tablet 08/23/18 hydroCHLOROthiazide [Hydrochlorothiazide] 12.5 mg PO DAILY #30 capsule 08/23/18 Following Prescrptions Were Given to Patient: hydroCHLOROthiazide [Hydrochlorothiazide] 12.5 mg PO DAILY #30 capsule Meclizine HCl 25 mg PO Q6H PRN #20 tablet PRN Reason: Vertigo Primary Care Physician: Magda Ayala DO [Primary Care Provider] - Please follow up with your Primary Care Physician in: 1 Week Please Follow Up With: Tim Crisostomo MD - May see Dr. Ryne MASON if preferred When: Call for soonest available appt. Disposition: Home Minutes spent on discharge:: 35 Patient Condition:: Stable Medical Necessity - Tobacco Use Smoking Status: Never smoker Tobacco Use: Non-smoker Meaningful Use Info Meaningful Use Diagnoses (Choose all that apply): None applicable
--- NOTE | 2018-08-23 10:57 | DS.PCM_ITS ---
Discharge Date and Diagnosis Date of Admission: 08/22/18 Date of Discharge: 08/23/18 - Primary Discharge Diagnosis Active and Suspected Problems 1. Vertigo, suspected BPPV-CVA ruled out 2. Hypertensive urgency 3. Hyperlipidemia 4. 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 Chronic involutional features of the brain as described above, are concordant with those seen on prior MRI imaging. No definitive acute intracranial process is evident. Electronically Signed: Masoud Wynn MD at 13:10 EST Tel , Service support , Chest X-Ray 08/22/18 11:48 IMPRESSION: No acute cardiopulmonary process. Electronically Signed: Masoud Wynn MD at 13:13 EST Tel , Service support , Brain MRI 08/22/18 16:00 IMPRESSION: Chronic periventricular white matter ischemic changes and chronic ischemic changes within the ace. No evidence for acute infarct Electronically Signed: Andrew Horton MD at 20:18 EST , Service support , Head MRA 08/22/18 16:00 IMPRESSION: Normal MRA of the head Electronically Signed: Andrew Horton MD at 20:32 EST , Service support , Neck MRA 08/22/18 16:00 IMPRESSION: Mild atherosclerotic disease. No evidence for hemodynamically significant stenosis utilizing NASCET criteria Electronically Signed: Andrew Horton MD at 20:34 EST , Service support , Operations: None Procedures: None Summary of Care Provided: The patient is a 73 year old F admitted 08/22/2018 due to dizziness, ataxia. 1. Vertigo, suspected BPPV-CVA ruled out. MRI of brain without acute infarct. Neck MRA with no evidence of hemodynamically significant stenosis. Patient symptoms improved with Valium. Patient wishes to try meclizine at discharge. Follow-up with primary care physician in 1 week. Follow-up with ENT early next week/soonest available for vestibular therapy. 2. Hypertensive urgency-improved. Continue home lisinopril, metoprolol regimen. Additionally added on hydrochlorothiazide 12.5 mg daily. This can be titrated up as outpatient if blood pressure remains above goal. 3. Hyperlipidemia-continue statin. 4. 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 General: Alert, Oriented x3, Cooperative, No apparent distress HEENT: Atraumatic, PERRLA, EOMI, Normocephalic Oral: Moist Mucosa Neck: Supple, No JVD, Negative Carotid Bruits Lungs: Clear to auscultation, Normal air movement Cardiovascular: Regular rate, Regular Rhythm, Normal S1, Normal S2, No murmurs Abdomen: Bowel Sounds Present, Soft, Non Tender, Non-Distended Extremities: No clubbing, No cyanosis, No edema, Capillary Refill Less than 3 Seconds Skin: No rashes, No breakdown Musculoskeletal: No Tenderness to Palpation of Joints or Extremities Neurological: Cranial nerves II-XII grossly intact, Neuro grossly intact Psych/Mental Status: Normal Affect, Appropriate, Alert and oriented to time, place, person, mood and affect Patient seen and examined prior to discharge. Physical assessment as noted above. Patient is stable for discharge with follow up recommendations as noted above. This patient was seen by DIANA Mariscal under the supervision of Dr. Bobby. - Physical Exam Vital Signs Temp Pulse Resp BP Pulse Ox 98.6 F 61 18 161/70 H 95 08/23/18 07:29 08/23/18 09:26 08/23/18 07:29 08/23/18 07:29 08/23/18 07:29 Oxygen Delivery Method Room Air Weight: 165 lb 12.602 oz Body Mass Index (BMI) 26.0 Intake and Output for Last 24 Hours 08/21/18 08/22/18 08/23/18 23:59 23:59 23:59 Intake Total 240 / 240 60 / 60 Balance 240 / 240 60 / 60 Laboratory Tests Past 24 Hrs 08/22/18 08/22/18 08/22/18 12:00 12:00 12:00 WBC 5.2 RBC 4.63 Hgb 14.6 Hct 44.4 MCV 95.9 MCH 31.5 MCHC 32.9 RDW 12.6 RDW Differential 43.5 Plt Count 161 MPV 11.0 Immature Gran % (Auto) 0.200 Neut % (Auto) 56.4 Lymph % (Auto) 32.0 [place] % (Auto) 8.1 Eos % (Auto) 2.9 Baso % (Auto) 0.4 Absolute Neuts (auto) 2.9 Absolute Lymphs (auto) 1.66 Total Counted Not Reportable PT 14.0 INR 1.1 APTT 33.6 Sodium 144 Potassium 4.2 Chloride 106 Carbon Dioxide 27.0 Anion Gap 11 BUN 17 Creatinine 0.73 Estim Creat Clear Calc 47.27 Est GFR (MDRD) Af Amer 99 Est GFR (MDRD) Non-Af 82 BUN/Creatinine Ratio 23.2 H Glucose 92 Calcium 9.7 Troponin I < 0.015 Urine Color Urine Clarity Urine pH Ur Specific [place] Urine Protein Urine Glucose (UA) Urine Ketones Urine Occult Blood Urine Nitrite Urine Bilirubin Urine Urobilinogen Ur Leukocyte Esterase Urine RBC Urine WBC Ur Squamous Epith Cells Urine Bacteria Urine Mucus 08/22/18 12:15 WBC RBC Hgb Hct MCV MCH MCHC RDW RDW Differential Plt Count MPV Immature Gran % (Auto) Neut % (Auto) Lymph % (Auto) [place] % (Auto) Eos % (Auto) Baso % (Auto) Absolute Neuts (auto) Absolute Lymphs (auto) Total Counted PT INR APTT Sodium Potassium Chloride Carbon Dioxide Anion Gap BUN Creatinine Estim Creat Clear Calc Est GFR (MDRD) Af Amer Est GFR (MDRD) Non-Af BUN/Creatinine Ratio Glucose Calcium Troponin I Urine Color Yellow Urine Clarity Clear Urine pH 7.0 Ur Specific [place] 1.005 Urine Protein Negative Urine Glucose (UA) Normal Urine Ketones Negative Urine Occult Blood Negative Urine Nitrite Negative Urine Bilirubin Negative Urine Urobilinogen Normal Ur Leukocyte Esterase 100 H Urine RBC 0 SEEN Urine WBC 0-5 SEEN Ur Squamous Epith Cells 0 SEEN Urine Bacteria 0 SEEN Urine Mucus 0 SEEN Discharge Diet: No Restrictions, 2000 mg Sodium Diet Discharge Activity: Return to Normal Activity Call your doctor if you observe: Numbness or Tingling, Shortness of breath, Dizziness, Fainting spells, Chest pain Home Medications: Medications to take at Discharge Atorvastatin Calcium [Lipitor] 20 mg PO QHS 08/05/13 Citalopram Hydrobromide [Celexa] 10 mg PO DAILY 08/05/13 Ergocalciferol [Vitamin D] 6,000 unit PO DAILY 08/05/13 Multivitamins,Ther W-Minerals [Multivitamin With Minerals] 1 tablet PO DAILY 08/05/13 Zolpidem Tartrate [Ambien] 10 mg PO QHS PRN PRN 08/05/13 Acetaminophen [Tylenol Tablet] 650 mg PO Q4H PRN PRN #20 tablet 08/08/13 Apixaban [Eliquis] 2.5 mg PO BID 11/21/17 Lisinopril [Prinivil] 20 mg PO DAILY 11/21/17 Metoprolol(XL)Succ [Toprol Xl (Beta Johan)] 50 mg PO DAILY 11/21/17 Ubidecarenone [Coq-10] 200 mg PO DAILY 08/22/18 Meclizine HCl 25 mg PO Q6H PRN #20 tablet 08/23/18 hydroCHLOROthiazide [Hydrochlorothiazide] 12.5 mg PO DAILY #30 capsule 08/23/18 Following Prescrptions Were Given to Patient: hydroCHLOROthiazide [Hydrochlorothiazide] 12.5 mg PO DAILY #30 capsule Meclizine HCl 25 mg PO Q6H PRN #20 tablet PRN Reason: Vertigo Primary Care Physician: Magda Ayala DO [Primary Care Provider] - Please follow up with your Primary Care Physician in: 1 Week Please Follow Up With: Tim Crisostomo MD - May see Dr. Ryne MASON if preferred When: Call for soonest available appt. Disposition: Home Minutes spent on discharge:: 35 Patient Condition:: Stable Medical Necessity - Tobacco Use Smoking Status: Never smoker Tobacco Use: Non-smoker Meaningful Use Info Meaningful Use Diagnoses (Choose all that apply): None applicable
--- NOTE | 2018-08-23 13:34 | CHAPLAIN ---
Type of Pastoral Visit _x__ Initial Visit ___ Follow-up Visit ___ On-call Visit ___ General Patient Visit ___ Spiritual Assessment ___ Family Conference ___ Bereavement ___ Rapid Response ___ Code Blue ___ Other (describe below) Pastoral Care Referral From _x__ Patient ___ Family ___ Nurse ___ Physician ___ Quality Assurance Clerk ___ Educational Director ___ Other (describe below) Sacrament/Intervention _x__ Active listening ___ Anointing ___ Denominational ___ Bereavement ___ Communion ___ Pretty exploration ___ ___ Life review _x__ Prayer ___ Reconciliation ___ Sacrament of Sick ___ Supportive presence ___ Wedding ___ Other (describe below) Pastoral Comments
== END 2018-08-23 10:51 | disposition home or self-care (01) ==
LOC: ED 15:01 → PCU 15:07
PROVIDERS: Admitting Provider Internal Medicine; Emergency Provider Emergency Medicine; Family Provider Internal Medicine; PCP Internal Medicine; Visit Provider Family Medicine
DX: R42 Dizziness and giddiness (principal); I16.0 Hypertensive urgency; I10 Essential (primary) hypertension; E78.5 Hyperlipidemia, unspecified; Z79.01 Long term (current) use of anticoagulants; H91.8X2 Other specified hearing loss, left ear; Z79.899 Other long term (current) drug therapy; D68.9 Coagulation defect, unspecified; R27.0 Ataxia, unspecified
CPT/HCPCS: 70450; 70544; 70549; 70551; 71045; 80048; 81001; 84484; 85025; 85610; 85730; 93005; 96374; 96375; 97161; 97165; 99218; 99285; A9585; J7030; A4216; G0378; J2405

== ENCOUNTER → 2019-02-19 14:27 | Outpatient (CLI) | payer MEDICARE, SELFPAY ==
[2018-08-23 11:23] VITALS: BMI 26.0
--- NOTE | 2019-02-19 14:32 | RAD_ITS ---
STUDY: X-RAY - UNILATERAL RIBS ( RIGHT ) WITH CHEST REASON FOR EXAM: Female, 73 years old. Right lateral chest wall pain on the recent fall. TECHNIQUE - RIBS: 2 view(s) of the ribs. TECHNIQUE - CHEST: Single PA view of the chest. COMPARISON: None. FINDINGS - RIBS: Normal visualized ribs without a demonstrated fracture. FINDINGS - CHEST: Small right pleural effusion with underlying infiltration and/or atelectasis. Normal size heart. Normal mediastinum and mitch. Normal visualized pulmonary arteries. Normal visualized aortic arch and descending thoracic aorta. There are diffuse degenerative changes of the visualized thoracic spine. Normal visualized ribs, clavicles, and shoulders. There is no demonstrated abnormality of the visualized soft tissue structures of the upper abdomen. RAD/Ribs Uni Min 3V w/PA Chest IMPRESSION: RIBS: Normal x-ray examination of the ribs. CHEST: Small right pleural effusion with underlying infiltration and/or atelectasis. Electronically Signed: Oli Lynn, at 15:30 EDT , Service support ,
== END ==
PROVIDERS: Family Provider Internal Medicine; PCP Internal Medicine; Referring Provider Nurse Practitioner; Visit Provider Nurse Practitioner
DX: R07.81 Pleurodynia (principal)
CPT/HCPCS: 71101

== ENCOUNTER → 2019-03-20 13:42 | Outpatient (CLI) | payer MEDICARE, SELFPAY ==
[2018-08-23 11:23] VITALS: BMI 26.0
--- NOTE | 2019-03-20 13:51 | CT_ITS ---
STUDY: CT BRAIN WITHOUT CONTRAST REASON FOR EXAM: Female, 73 years old. Concussion RADIATION DOSAGE (If Supplied By Facility): CTDIvol = ( 44.99 ) mGy, DLP = ( 762.36 ) mGycm TECHNIQUE: Transaxial CT imaging of the brain was performed without administration of intravenous contrast material. Individualized dose optimization techniques were used for this CT. COMPARISON: August 22, 2018. FINDINGS: Normal soft tissue structures. Normal calvarium. Mild calcification of cavernous carotid Mild atrophy and advanced periventricular white matter ischemic changes. Normal basal ganglia and thalami. Normal brainstem. Normal cerebellum. There is no intracranial hemorrhage. There are no findings of an acute ischemic infarction. Normal visualized paranasal sinuses. No significant change since prior study CT/Brain/Head without Contrast IMPRESSION: Advanced periventricular white matter ischemic changes. No evidence for acute intracranial bleed. Electronically Signed: Andrew Horton MD at 16:52 EDT , Service support ,
== END ==
PROVIDERS: Family Provider Internal Medicine; PCP Internal Medicine; Referring Provider Psychiatry & Neurology Neurology; Visit Provider Psychiatry & Neurology Neurology
DX: S06.369A Traumatic hemorrhage of cerebrum, unspecified, with loss of consciousness of unspecified duration, initial encounter (principal)
CPT/HCPCS: 70450

== ENCOUNTER → 2019-05-16 10:40 | Outpatient (CLI) | payer MEDICARE, SELFPAY ==
[2018-08-23 11:23] VITALS: BMI 26.0
--- NOTE | 2019-05-16 10:56 | BI_ITS ---
MAMMOGRAPHY - BILATERAL SCREENING REASON FOR EXAM: Female, 73 years old. Routine annual screening examination. PERTINENT HISTORY: Mother with breast cancer. Bilateral breast reduction surgery. TECHNIQUE: Digital bilateral breast mikel (3D mammographic acquisition) in the CC and MLO projections. 2-D mediolateral oblique (MLO) and craniocaudad (CC) views of both breasts were obtained. CAD: Full Field Digital Mammography with Computer Added Detection was performed. COMPARISON: Comparison is made with prior study dated May 14, 2018 and April 30, 2017. FINDINGS: Breast Composition: The breasts are heterogeneously dense, which may obscure small masses. There are no dominant masses or suspicious calcifications. Stable scattered microcalcifications in both breasts likely more prominent on the left side. No focal clustering is seen. Stable benign-appearing bilateral axillary lymph nodes. No other significant abnormalities are identified. There has been no significant change since the prior study. BI/SCREEN MAMM (CAD) W/MIKEL BILAT IMPRESSION: Stable bilateral screening mammogram. Yearly follow-up mammogram recommended. (A) ASSESSMENT CATEGORY: BIRADS Category 2: Benign. A letter regarding these results will be sent to the patient by the facility within 30 days. Approximately 10% of breast cancers are not detected by mammography. A normal mammogram should not delay biopsy of a clinically suspicious abnormality. [id number] Electronically Signed: Oli Lynn, at 13:53 EDT , Service support ,
== END ==
PROVIDERS: Family Provider Internal Medicine; PCP Internal Medicine; Referring Provider Internal Medicine; Visit Provider Internal Medicine
DX: Z12.31 Encounter for screening mammogram for malignant neoplasm of breast (principal); Z80.3 Family history of malignant neoplasm of breast
CPT/HCPCS: 77063; 77067

== ENCOUNTER → 2019-05-28 10:56 | Outpatient (CLI) | payer MEDICARE, SELFPAY ==
[2018-08-23 11:23] VITALS: BMI 26.0
--- NOTE | 2019-05-28 11:02 | MRI_ITS ---
STUDY: MRI BRAIN WITHOUT CONTRAST REASON FOR EXAM: Female, 74 years old. VERTIGO,hx concussion 01/27/19, fell and hit left side of head TECHNIQUE: Standardized multiplanar fat and water weighted pulse sequences were obtained. COMPARISON: MRI of the brain dated August 22, 2018. Head CT dated March 20, 2019 FINDINGS: There is mild cerebral atrophy with widening of the extra-axial spaces and ventricular dilatation. There are multiple white matter hyperintensities, distributed throughout the deep white matter tracts of the cerebral hemispheres, consistent with moderate chronic white matter ischemic changes. There is no evidence for recent intracranial ischemia or other cause of cytotoxic edema on diffusion weighted imaging (DWI). Normal T2* images of the brain without demonstrated susceptibility artifact. There is no demonstrated hemosiderin stain. Normal bilateral frontal poles, and orbital frontal and gyrus recti of the frontal lobes. Normal bilateral temporal tips of the temporal lobes. There are no white matter shear injuries (diffuse axonal injuries). There are no parenchymal hemorrhages or hematomas. There are no findings to suggest prior closed head parenchymal injury of the brain. No hydrocephalus. No midline shift. Normal bilateral basal ganglia. Normal thalami. There is no extra-axial fluid accumulation. Normal flow voids within the major intracranial circulation suggesting patency by spin echo criteria. Normal sella turcica, pituitary gland, infundibular stalk, optic chiasm and hypothalamus. Normal tectal plate and pineal gland. Normal midbrain, ace and medulla. Normal cerebellum. Normal basal cisterns. Normal bilateral temporal bones. Normal bilateral internal auditory canals. No demonstrated orbital abnormality, within the constraints of a routine brain study. Normal visualized paranasal sinuses. Normal calvarium and skull base. Normal visualized soft tissue structures. Normal visualized upper cervical spine. 1. MRI/Brain without Contrast IMPRESSION: 2. Chronic atrophy and ischemic changes of the brain, as described above. 3. No significant interval change from the previous MRI of the brain dated August 22, 2018. Electronically Signed: Bennett Conroy MD at 18:05 EST , Service support ,
== END ==
PROVIDERS: Family Provider Internal Medicine; PCP Internal Medicine; Referring Provider Internal Medicine; Visit Provider Internal Medicine
DX: R42 Dizziness and giddiness (principal)
CPT/HCPCS: 70551

== ENCOUNTER → 2019-06-09 09:33 | Outpatient (CLI) | payer MEDICARE, SELFPAY ==
[2018-08-23 11:23] VITALS: BMI 26.0
--- NOTE | 2019-06-09 09:39 | ECHOCS_ITS ---
Version 2 Reason For Study: PHTN Procedure This was a 2D Doppler, Color Flow transthoracic echocardiogram. The study was technically difficult. Contrast injection was performed. Exam performed in department. Left Ventricle Normal LV size. Left ventricular systolic function is normal. The estimated ejection fraction is 65 %. Stage 2 diastolic dysfunction. No regional wall motion abnormalities noted. Right Ventricle Normal RV size. Normal systolic function. Atria Normal left atrium. Normal right atrium. Mitral Valve Normal mitral valve. Tricuspid Valve Normal tricuspid valve. Mild to moderate (1-2+) tricuspid valve insufficiency. Pulmonary artery systolic pressure is 44 mmHg. Aortic Valve Normal aortic valve. Trisinus/trileaflet aortic valve. Pulmonic Valve Normal pulmonic valve. Great Vessels Normal aortic root. The pulmonary artery is normal size. Normal inferior vena cava. Pericardium/Pleural No pericardial effusion. Medication 22 gauge I.V. with prn adaptor inserted into right arm. Diluted definity 3ml given slow IV push to enhance endocardial definition. MMode/2D Measurements & Calculations LVIDd: 4.4 cm IVSd: 1.1 cm Ao root diam: 3.0 cm LVIDs: 2.8 cm LVPWd: 1.0 cm LA dimension: 3.8 cm RVDd: 3.6 cm FS: 36.9 % LAV(MOD-bp): 49.8 ml LA A4 area: 18.6 cm2 RA A4 area: 17.2 cm2 LAV(MOD-bp) Indexed: 26.7 ml/m2 LAV(MOD-sp2): 46.4 ml LAV(MOD-sp4): 52.3 ml Time Measurements MV dec time: 0.21 sec Doppler Measurements & Calculations MV E max valente: 115.9 cm/sec Lat Peak E' Valente: 9.8 cm/sec Med Peak E' Valente: 8.8 cm/sec MV A max valente: 92.2 cm/sec E/E' lat: 11.8 E/E' med: 13.1 MV E/A: 1.3 MV V2 max: 125.2 cm/sec MV P1/2t max valente: 124.2 cm/sec Ao V2 max: 111.7 cm/sec MV max P.3 mmHg MV P1/2t: 101.2 msec Ao max P.0 mmHg MV V2 mean: 63.6 cm/sec MV dec slope: 359.4 cm/sec2 MV mean P.9 mmHg MV V2 VTI: 38.0 cm MVA(P1/2t): 2.2 cm2 LV V1 max: 84.9 cm/sec PA V2 max: 97.3 cm/sec PI end-d valente: 112.7 cm/sec LV V1 max P.9 mmHg TR max valente: 309.7 cm/sec TR max P.4 mmHg Interpretation Summary Normal LV size. Left ventricular systolic function is normal. The estimated ejection fraction is 65 %. Stage 2 diastolic dysfunction. Mild to moderate (1-2+) tricuspid valve insufficiency. Structurally normal valves. Ordering Physician: Wayne Tucker Referring Physician: Wayne Tucker V Performed By: Jace Parada RCS
== END ==
PROVIDERS: Family Provider Internal Medicine; PCP Internal Medicine; Referring Provider Internal Medicine Pulmonary Disease; Visit Provider Internal Medicine Pulmonary Disease
DX: R06.00 Dyspnea, unspecified (principal)
CPT/HCPCS: 93306; Q9957; A4216; C8929

== ENCOUNTER 2019-06-16 10:49 | Emergency (ER) | payer MEDICARE, SELFPAY ==
[2019-06-15 13:20] VITALS: BMI 26.0
[2019-06-16 10:50] VITALS: BP 141/56; PULSE 82; RESP 17; TEMP 38.1; O2SAT 96; BMI 25.4
--- NOTE | 2019-06-16 11:56 | EKG12_ITS ---
Test Reason : COUGH Blood Pressure : / mmHG Vent. Rate : 077 BPM Atrial Rate : 077 BPM P-R Int : 178 ms QRS Dur : 076 ms QT Int : 396 ms P-R-T Axes : 068 -12 073 degrees QTc Int : 448 ms Normal sinus rhythm Normal ECG Confirmed by BILL MATTHEWS, RUPA ([id number]), deputy editor in chief KAROLINA BOWLING ([id number]) on 06/18/2019 11:27:46 AM Referred By: GABINO Confirmed By:RUPA KHAN MD
--- NOTE | 2019-06-16 11:59 | ED.VIS.GEN ---
History of Present Illness Chief Complaint: Cough Informant: Patient Onset: Weeks Context: Gradual Onset Timing: Intermittent Narrative: Patient is a 74-year-old female presenting with multiple complaints. She states she has had diarrhea for the past 2 weeks. She states she eats. She is having 3-4 bowel movements a day. She does have cramping abdominal pain associated with the bowel movements but stats that Imodium has helped with that. She does have some associated nausea but no vomiting. No black/blood in stool. No recent antibiotics or history of C diff. She has also had a cough that is nonproductive for the past 4 days. Associated chest congestion and tightness. Associated sorethroat. Developed a fever 3 days ago. Taking tylenol at home. Headache for 3 days. associated pressure in forehead and pounding when headache is severe. No vision changes or neck pain. Has diffuse myalgias no leg swelling. Notes that she is on Eliquis for factor V Leiden and history of ischemic colitis. Does have a history of intracranial hemorrhage and subsequent vertigo after her fall this summer. Reports no recent falls or trauma. Past Medical History - Allergies and Home Meds Allergies/Adverse Reactions: Allergies amoxicillin [Amoxicillin] Allergy (Verified 06/16/19 10:50) Swelling azithromycin [From Zithromax] Allergy (Verified 06/16/19 10:50) Rash Penicillins Allergy (Verified 06/16/19 10:50) Hives Sulfa (Sulfonamide Antibiotics) Allergy (Verified 06/16/19 10:50) Angioedema sulfamethoxazole [From Septra] Allergy (Verified 06/16/19 10:50) Rash triamcinolone acetonide [From Nasacort AQ] Allergy (Verified 06/16/19 10:50) Rash trimethoprim [From Septra] Allergy (Verified 06/16/19 10:50) Rash codeine Adverse Reaction (Verified 06/16/19 10:50) Vomiting nitrofurantoin [From Macrobid] Adverse Reaction (Verified 06/16/19 10:50) Upset Stomach Primary Care Physician: Magda Ayala DO [Primary Care Provider] - Past Medical History: - - Ischemic colitis, factor V Leiden deficiency, hypertension, hyperlipidemia Surgical History: cholecystectomy, - - Breast reduction, tubal ligation, phlebectomy left leg, knee arthroscopy Smoking Status: Never smoker - Family History Maternal Family History: Reports: No pertinent history Paternal Family History: Reports: Stroke Review of Systems General: Reports: Chills, Fever, Malaise. Denies: Sweats Eyes: Denies: Visual changes - bilaterally, Diplopia ENT: Reports: Sore throat. Denies: Rhinorrhea Cardiovascular: Denies: Chest pain, Palpitations Respiratory: Reports: Cough. Denies: Dyspnea, Sputum, Dyspnea on exertion Gastrointestinal: Reports: Nausea, Diarrhea. Denies: Abdominal pain, Vomiting, Melena, Hematochezia Genitourinary: Denies: Dysuria, Hematuria, Frequency Musculoskeletal: Reports: Myalgias. Denies: Back pain, Extremity Pain Skin: Denies: Rash, Wounds Neurological: Denies: Headache, Weakness, Numbness Physical Exam Vital Signs/Narrative: Vital Signs Temp Pulse Resp BP Pulse Ox 06/16/19 10:50 100.6 F H 82 17 141/56 H 96 Inital Vital Signs reviewed: Yes General: Well nourished, Well developed, No Acute Distress Head: Normocephalic, Atraumatic Eyes: Perrl, EOMI ENT: Moist mucous membranes, No rhinorrhea, - - Mild pharyngeal erythema present, normal tonsils Neck: Supple, Nontender Cardiovascular: Regular rate, Regular rhythm, No murmurs Respiratory: No distress, CTA bilaterally, Chest nontender. Negative for: Rhonchi, Wheezing, Diminished Abdomen: Soft, Nontender, Nondistended, Normal bowel sounds Back: Nontender, Normal Inspection Extremities: Nontender, No edema Skin: Normal color, No rash Neurological: Alert, Oriented x3, Cranial nerves II-XII grossly intact, Normal Strength, Normal Sensation Psychological: Normal affect, Normal Mood Diagnostic/Tx/Re-eval Chest X-Ray - ED: 2 View, Read by ED Physician, Read by Radiologist, No Acute Disease Clinical Impression(s) from Imaging Studies Chest X-Ray 06/16/19 13:00 IMPRESSION: Normal x-ray examination of the chest. Electronically Signed: Grzegorzdanita Cleopatra, at 13:57 EST Tel , Service support , Laboratory Data 06/16/19 06/16/19 06/16/19 12:15 12:15 12:15 WBC 4.8 RBC 4.19 L Hgb 13.2 Hct 39.4 MCV 94.0 MCH 31.5 MCHC 33.5 RDW Std Deviation 43.8 RDW Coeff of Stephan 12.7 Plt Count 130 L MPV 10.5 Immature Gran % (Auto) 0.200 Neut % (Auto) 67.4 Lymph % (Auto) 21.5 [place] % (Auto) 10.3 H Eos % (Auto) 0.2 Baso % (Auto) 0.4 Absolute Neuts (auto) 3.2 Absolute Lymphs (auto) 1.02 Nucleated RBC % 0 PT 15.3 H INR 1.2 APTT 36.3 H Sodium 135 L Potassium 3.4 L Chloride 100 Carbon Dioxide 28.0 Anion Gap 7 BUN 10 Creatinine 0.85 Estim Creat Clear Calc 56.80 Est GFR (MDRD) Af Amer 84 Est GFR (MDRD) Non-Af 69 BUN/Creatinine Ratio 11.8 Glucose 111 H Lactic Acid Calcium 8.3 L Total Bilirubin 0.50 AST 30 ALT 35 Alkaline Phosphatase 79 Troponin I < 0.015 Total Protein 7.0 Albumin 3.4 Globulin 3.6 Albumin/Globulin Ratio 0.9 Lipase 104 Urine Color Urine Clarity Urine pH Ur Specific Armstrong Urine Protein Urine Glucose (UA) Urine Ketones Urine Occult Blood Urine Nitrite Urine Bilirubin Urine Urobilinogen Ur Leukocyte Esterase Urine RBC Urine WBC Ur Squamous Epith Cells Urine Bacteria Urine Mucus Monoscreen 06/16/19 06/16/19 06/16/19 12:15 12:15 13:25 WBC RBC Hgb Hct MCV MCH MCHC RDW Std Deviation RDW Coeff of Stephan Plt Count MPV Immature Gran % (Auto) Neut % (Auto) Lymph % (Auto) [place] % (Auto) Eos % (Auto) Baso % (Auto) Absolute Neuts (auto) Absolute Lymphs (auto) Nucleated RBC % PT INR APTT Sodium Potassium Chloride Carbon Dioxide Anion Gap BUN Creatinine Estim Creat Clear Calc Est GFR (MDRD) Af Amer Est GFR (MDRD) Non-Af BUN/Creatinine Ratio Glucose Lactic Acid 1.3 Calcium Total Bilirubin AST ALT Alkaline Phosphatase Troponin I Total Protein Albumin Globulin Albumin/Globulin Ratio Lipase Urine Color Yellow Urine Clarity Clear Urine pH 6.0 Ur Specific Armstrong 1.010 Urine Protein Negative Urine Glucose (UA) Normal Urine Ketones Negative Urine Occult Blood 10 H Urine Nitrite Negative Urine Bilirubin Negative Urine Urobilinogen Normal Ur Leukocyte Esterase Negative Urine RBC 0-5 SEEN Urine WBC 0 SEEN Ur Squamous Epith Cells 0-5 SEEN Urine Bacteria 0 SEEN Urine Mucus 0 SEEN Monoscreen Negative - Rhythm Strip Rhythm Strip: Sinus Rhythm Rate: 77 Ectopy: None - EKG Initial EKG Interpretation: Sinus Rhythm, - - Normal sinus rhythm and rate of 77 Normal intervals Left axis deviation Normal ST segments No change except for right compared to prior EKG Prior: Unchanged - 08/22/18 - Medical Decision Making Patient is evaluated for febrile illness. She has 2 weeks of diarrhea and 3 days of cough and URI symptoms. Lactate is normal as well as CBC and BMP. No pneumonia on CXR and Flu swab is negative. UA negative for infection. EKG and troponin are normal. I do not suspect myocarditis. Likely patient has a virus that is causing her symptoms. She is urinating she is a good for outpatient follow-up. She is instructed to call her PCP tomorrow to arrange quick follow-up. Patient is counseled on signs and symptoms requiring return to the emergency room. Patient verbalizes agreement and understand this plan. Patient discharged home in stable and improved condition. ED Disposition - Plan for ED Patient: Disposition: Home or Assisted Living Diagnosis: Febrile respiratory illness Instructions: FEBRILE ILLNESS, Uncertain Cause (Adult), VIRAL SYNDROME (Adult) Prescriptions: Benzonatate [Tessalon Perle] 100 mg PO Q4H PRN PRN #20 cap PRN Reason: Cough Prescription Printed Referrals: Magda Ayala DO [Primary Care Provider] - Additional Instructions: Return if you have worsening symptoms. Your work up today was negative for pneumonia, influenza, or other acute process. Likely this is some type of virus that is causing it. Please call your doctor to arrange follow-up in the next few days. Return if you have worsening symptoms. Take Tylenol as needed for fever.
[2019-06-16] MEDS: 0.9% Normal Saline 1,000 ML 999 ML IV (12:15)
[2019-06-16 12:30] LABS: Absolute Lymphocyte Count 1.02 X10^3/uL (0.83-4.51); Absolute Neutrophil Count 3.2 X10^3/uL (2.0-7.7); Basophil# 0.02 X10^3/uL; Basophil% 0.4 % (0-1); Eosinophil# 0.01 X10^3/uL; Eosinophils% 0.2 % (0-5); Hematocrit 39.4 % (37-47); Hemoglobin 13.2 g/dL (12.0-15.0); Lymphocyte # 1.02 X10^3/ul (4.0); Lymphocyte % 21.5 % (19-41); Mean Corp Hgb Conc 33.5 g/dL (32-36); Mean Corpuscular Hgb 31.5 pg (27.0-32.0); Mean Platelet Vol. 10.5 fl (6.2-12.0); Monocyte# 0.49 X10^3/uL; Monocyte% 10.3 % (0-10); NRBC Flagged by Analyzer 0 % (0-5); Neutrophil % 67.4 % (47-70); Platelet Count 130 K/mm3 (150-450); RBC Distribution Width CV 12.7 % (11.6-14.6); RBC Distribution Width SD 43.8 fl (35.1-43.9); Red Blood Count 4.19 M/mm3 (4.2-5.4); White Blood Count 4.8 K/mm3 (4.4-11.0)
[2019-06-16 12:39] LABS: International Normalized Ratio 1.2; Prothrombin Time (Protime)PT. 15.3 SECONDS (11.7-14.9)
[2019-06-16 12:40] LABS: Partial Thromboplast Time 36.3 Seconds (24.1-36.2)
[2019-06-16 12:46] VITALS: BP 159/61; PULSE 78; RESP 17; O2SAT 98
[2019-06-16 12:47] LABS: ALB/GLOB Ratio 0.9 RATIO (0.9-2.4); AST(SGOT) 30 U/L (15-37); Alanine Aminotransfer ALT/SGPT 35 U/L (13-56); Albumin, Serum 3.4 g/dL (3.2-5.0); Alkaline Phosphatase 79 U/L (45-117); Anion Gap 7 (5-15); BUN 10 mg/dL (7-18); BUN/Creat Ratio 11.8 RATIO (10-20); Calcium,Total 8.3 mg/dL (8.5-10.1); Chloride 100 mmol/L (98-107); Creatinine, Serum 0.85 mg/dL (0.55-1.02); EST Glomerular Filtration Rate 69 mL/min (>60); Est Glom Filt Rate - Afr Amer 84 mL/min (>60); Globulin 3.6 g/dL (2.2-4.2); Glucose 111 mg/dL (74-106); Lipase 104 U/L (73-393); Potassium 3.4 mmol/L (3.5-5.1); Sodium Level 135 mmol/L (136-145)
[2019-06-16 12:55] VITALS: O2SAT 98
[2019-06-16 12:56] LABS: Internal QC Validated? YES +Cl - CLEAR BKGD
--- NOTE | 2019-06-16 13:00 | RAD_ITS ---
STUDY: X-RAY CHEST REASON FOR EXAM: Female, 74 years old. TECHNIQUE: 2 views COMPARISON: February 19, 2019. FINDINGS: The lungs are clear and expanded. The previously described the right-sided pleural effusion is no longer identified There is no demonstrated pleural abnormality. Normal size heart. Normal mediastinum and mitch. Normal visualized pulmonary arteries. Normal visualized aortic arch and descending thoracic aorta. Normal visualized thoracic spine. Normal visualized ribs, clavicles, and shoulders. There is no demonstrated abnormality of the visualized soft tissue structures of the upper abdomen. RAD/Chest PA and Lateral IMPRESSION: Normal x-ray examination of the chest. Electronically Signed: Leydi Whelan, at 13:57 EST Tel , Service support ,
[2019-06-16 13:01] LABS: Monotest Negative (Negative)
[2019-06-16 13:07] LABS: Lactic Acid 1.3 mmol/L (0.4-2.0)
[2019-06-16 13:28] VITALS: BP 181/65; PULSE 78; RESP 24; O2SAT 97
[2019-06-16 13:30] LABS: Bacteria 0 SEEN /hpf (None Seen); Mucous, Urine 0 SEEN /hpf (<or=2+); White Blood Cells 0 SEEN /hpf (0-5)
[2019-06-16 13:32] LABS: Color, Urine Yellow (Yellow); Glucose, Dipstick Normal (Normal); Ketone-Dipstick Negative (Negative); Leukocyte Esterase-Dipstick Negative /ul (Negative); Nitrite-Dipstick Negative (Negative); Occult Blood-Urine 10 /ul (Negative); Protein-Dipstick Negative (Negative); Urine Bilirubin Dipstick Negative (Negative); Urine Clarity Clear (Clear); Urine Urobilinogen Normal (Normal)
[2019-06-16 13:39] LABS: Red Blood Cells-Urine 0-5 SEEN /hpf (0-5); Squamous Epithelial Cells - UA 0-5 SEEN /hpf (5-10)
[2019-06-16 14:58] VITALS: BP 159/67; PULSE 82; RESP 17; TEMP 38; O2SAT 93
[2019-06-16 15:12] VITALS: BP 150/68; PULSE 79; PULSE 85; RESP 18; RESP 23; O2SAT 94
== END 2019-06-16 15:52 | disposition home or self-care (01) ==
PROVIDERS: Emergency Provider Emergency Medicine; Family Provider Internal Medicine; PCP Internal Medicine
DX: R50.9 Fever, unspecified (principal); R19.7 Diarrhea, unspecified; R11.0 Nausea; J02.9 Acute pharyngitis, unspecified; D68.51 Activated protein C resistance; I10 Essential (primary) hypertension; E78.5 Hyperlipidemia, unspecified; Z79.01 Long term (current) use of anticoagulants; Z79.899 Other long term (current) drug therapy
CPT/HCPCS: 71046; 80053; 81001; 83605; 83690; 84484; 85025; 85610; 85730; 86308; 87804; 93005; 96360; 96361; 99284; J7030; A4216

== ENCOUNTER 2019-06-20 22:06 | Emergency (ER) | payer MEDICARE, SELFPAY ==
[2019-06-20 22:07] VITALS: BP 146/64; PULSE 86; RESP 18; TEMP 37.5; O2SAT 94; BMI 24.7
[2019-06-20 22:23] VITALS: O2SAT 93
[2019-06-20] MEDS: Albuterol 2.5 MG/3 ML VIAL.NEB. INHALATION (22:59)
[2019-06-20 23:02] VITALS: PULSE 84; RESP 12
[2019-06-20 23:22] LABS: Absolute Lymphocyte Count 1.29 X10^3/uL (0.83-4.51); Absolute Neutrophil Count 3.4 X10^3/uL (2.0-7.7); Basophil# 0.01 X10^3/uL; Basophil% 0.2 % (0-1); Eosinophil# 0.09 X10^3/uL; Eosinophils% 1.7 % (0-5); Hematocrit 33.9 % (37-47); Hemoglobin 11.4 g/dL (12.0-15.0); Lymphocyte # 1.29 X10^3/ul (4.0); Lymphocyte % 24.1 % (19-41); Mean Corp Hgb Conc 33.6 g/dL (32-36); Mean Corpuscular Hgb 31.3 pg (27.0-32.0); Mean Corpuscular Volume 93.1 fL (81-99); Mean Platelet Vol. 10.8 fl (6.2-12.0); Monocyte# 0.58 X10^3/uL; Monocyte% 10.8 % (0-10); NRBC Flagged by Analyzer 0 % (0-5); Neutrophil # 3.38 X10^3/uL (2.7-7.7); Platelet Count 148 K/mm3 (150-450); RBC Distribution Width CV 12.8 % (11.6-14.6); RBC Distribution Width SD 43.9 fl (35.1-43.9); Red Blood Count 3.64 M/mm3 (4.2-5.4); White Blood Count 5.4 K/mm3 (4.4-11.0)
--- NOTE | 2019-06-20 23:42 | RAD_ITS ---
STUDY: X-RAY CHEST REASON FOR EXAM: Female, 74 years old. Cough for one week with body aches and fever. TECHNIQUE: PA and lateral views of the chest. COMPARISON: June 16, 2019. FINDINGS: The lungs are expanded. There is mild prominence of bronchovascular markings. There is perihilar interstitial thickening present in both lungs. There is no demonstrated pleural abnormality. There is mild cardiac enlargement. Normal mediastinum and mitch. There is prominence of the pulmonary hilar arteries with peripheral pulmonary vascular congestion. There is atherosclerotic tortuosity of the aortic arch and descending thoracic aorta. There are diffuse degenerative changes of the visualized thoracic spine. Normal visualized ribs, clavicles, and shoulders. There is no demonstrated abnormality of the visualized soft tissue structures of the upper abdomen. RAD/Chest PA and Lateral IMPRESSION: Borderline cardiomegaly and mild pulmonary congestion. Electronically Signed: Chelo Romero MD at 0:08 EST , Service support ,
--- NOTE | 2019-06-20 23:54 | ED.VIS.URI ---
History of Present Illness Chief Complaint: Cough Informant: Patient, Family Onset: Weeks - 3-4 total; worse x 1 week Context: Gradual Onset Timing: Continuous Quality: [place] cough Location: chest Current Severity: Moderate Maximum Severity: Moderate Relieved by: - - albuterol helps some; helps cough and chest tightness Associated Symptoms: Nasal Congestion, Chest Pain, Nonproductive cough. Negative for: Headache, Sinus Pressure, Nausea, Vomiting, Shortness of Breath, Hemoptysis Narrative: 74-year-old female who was seen here 4-5 days ago for same symptoms. She developed a fever today of 101.5 at home. She had a very thorough and negative work-up in the ER several days ago. She has no history of COPD or other chronic lung disease. She denies any other new symptoms other than the fever. She has had diarrhea for several weeks and that is persistent. Nonbloody. She has some mild chest tightness that gets better with albuterol. She had a negative cardiac work-up as well several days ago here. She has not followed up with her doctor yet. She has been taking Tessalon Perles which are not really helping with her coughing although her albuterol inhaler is a little. She has developed no swelling in her legs or orthopnea. No dyspnea. - Past Medical History (1) Benign hypertension Status: Chronic (2) Dyslipidemia Status: Chronic Past Medical History - Allergies and Home Meds Allergies/Adverse Reactions: Allergies amoxicillin [Amoxicillin] Allergy (Verified 06/20/19 22:09) Swelling azithromycin [From Zithromax] Allergy (Verified 06/20/19 22:09) Rash Penicillins Allergy (Verified 06/20/19 22:09) Hives Sulfa (Sulfonamide Antibiotics) Allergy (Verified 06/20/19 22:09) Angioedema sulfamethoxazole [From Septra] Allergy (Verified 06/20/19 22:09) Rash triamcinolone acetonide [From Nasacort AQ] Allergy (Verified 06/20/19 22:09) Rash trimethoprim [From Septra] Allergy (Verified 06/20/19 22:09) Rash codeine Adverse Reaction (Verified 06/20/19 22:09) Vomiting nitrofurantoin [From Macrobid] Adverse Reaction (Verified 06/20/19 22:09) Upset Stomach Primary Care Physician: Jamie,Magda, DO [Primary Care Provider] - 3-5 Days Surgical History: cholecystectomy, - - Breast reduction, tubal ligation, phlebectomy left leg, knee arthroscopy Lives: Spouse/ Significant Other Smoking Status: Never smoker - Family History Maternal Family History: Reports: No pertinent history Paternal Family History: Reports: Stroke Review of Systems General: Reports: Fever, Malaise. Denies: Chills, Sweats Eyes: Denies: Visual changes - bilaterally, Diplopia ENT: Reports: Rhinorrhea, - - No facial pressure/sinus pain, - - Hoarseness of voice. Denies: Bilateral ear pain, Sore throat Cardiovascular: Reports: Chest pain. Denies: Palpitations Respiratory: Reports: Cough. Denies: Dyspnea, Sputum, Dyspnea on exertion, Orthopnea, Paroxysmal nocturnal dyspnea Gastrointestinal: Reports: Diarrhea. Denies: Abdominal pain, Nausea, Vomiting, Melena, Hematochezia Genitourinary: Denies: Dysuria, Hematuria, Frequency Musculoskeletal: Reports: Myalgias. Denies: Neck pain, Back pain, Swelling, Extremity Pain Skin: Denies: Rash, Wounds Neurological: Denies: Headache, Weakness, Numbness Physical Exam Vital Signs/Narrative: Vital Signs Temp Pulse Resp BP Pulse Ox 06/20/19 23:02 84 12 06/20/19 22:07 99.5 F H 86 18 146/64 H 94 Inital Vital Signs reviewed: Yes General: Well nourished, Well developed, - - Well-appearing, no acute distress. Occasional bronchitic coughing and hoarseness without stridor Head: Normocephalic, Atraumatic Eyes: Perrl, EOMI Ears: Normal external canal, TM's clear Nose: Normal Inspection, No Rhinorrhea. Negative for: Congestion, Purulent Drainage Mouth/Throat: Normal Inspection, No Posterior Erythema, Airway Patent Neck: Supple, Nontender, No Lymphadenopathy, No Meningismus Cardiovascular: Regular rate, Regular rhythm, No murmurs. Negative for: Tachycardia Respiratory: No distress, CTA bilaterally, Chest nontender Abdomen: Soft, Nontender, Nondistended, Normal bowel sounds Back: Nontender, Normal Inspection Extremities: Nontender, No edema Skin: Normal color, No rash, No Trauma Neurological: Alert, Oriented x3, Cranial nerves II-XII grossly intact, Normal Strength, Normal Sensation, Normal Gait Psychological: Normal affect, Normal Mood Diagnostic/Tx/Re-eval Impressions Chest X-Ray 06/20/19 23:42 IMPRESSION: Borderline cardiomegaly and mild pulmonary congestion. Electronically Signed: Chelo Romero MD at 0:08 EST , Service support , 06/20/19 23:42 Chest PA and Lateral [RAD] Stat 06/20/19 23:45 Urine, Random Legionella Antigen - Final -- NEGATIVE Laboratory Results 06/20/19 06/20/19 23:15 23:15 WBC 5.4 RBC 3.64 L Hgb 11.4 L Hct 33.9 L MCV 93.1 MCH 31.3 MCHC 33.6 RDW Std Deviation 43.9 RDW Coeff of Stephan 12.8 Plt Count 148 L MPV 10.8 Immature Gran % (Auto) 0.200 Neut % (Auto) 63.0 Lymph % (Auto) 24.1 [place] % (Auto) 10.8 H Eos % (Auto) 1.7 Baso % (Auto) 0.2 Absolute Neuts (auto) 3.4 Absolute Lymphs (auto) 1.29 Nucleated RBC % 0 B-Natriuretic Peptide 199.9 H - Medical Decision Making Out of precaution I repeated her previously negative chest x-ray, it now is showing venous congestion and possible cardiomegaly according to radiology interpretation, her lungs are clear with good pulse ox at 94 on room air. Also out of precaution to rule out Legionella to the best of my ability I sent off a urine antigen, that returned negative. She is not producing sputum to send for mycoplasma testing. I also did a respiratory viral panel. I am highly suspicious that she has viral etiology of her infectious symptoms based on history and exam, but with her CXR showing new findings, further testing was entertained. I sent a repeat CBC and she still has a very normal white blood count in the 5 range with no leftward shift or bandemia. She had a negative flu swab before I did not need to repeat that now. I sent a beta natruretic peptide, but returned at 199, essentially ruling out acute decompensated congestive heart failure; it is slightly elevated, but this can be accounted for by her age alone. Therefore I suspect these pulmonary findings may be indicative of bacterial infection rather than viral, so I think treating her with broad-spectrum antibiotics would be reasonable with close outpatient follow-up. I offered her cough medication for at night, she is agreeable to that and I gave her a dose of Hycodan elixir here, she reacts poorly to codeine and did well with this so she is given a prescription and advised to follow-up for test results and reevaluation after the weekend. She is comfortable with this overall plan. ED Disposition - Plan for ED Patient: Disposition: Home or Assisted Living Diagnosis: Acute lower respiratory tract infection Instructions: Walking Pneumonia, BRONCHITIS, Antiobiotic Treatment (Adult) Prescriptions: Hydrocodone Bit/Homatropine [Hycodan Syrup] 5 ml GT Q6H PRN #4 oz PRN Reason: Cough Transmission Status: Sent to [facility] levoFLOXacin tablet [Levaquin tablet] 750 mg PO DAILY #5 tab Transmission Status: Pending to [facility] Referrals: Magda Ayala DO [Primary Care Provider] - 3-5 Days
--- NOTE | 2019-06-21 00:12 | ED.RN ---
Verbal orders by Dr Malloy to discontinue sepsis screen
[2019-06-21 00:15] VITALS: BP 157/61; PULSE 93; RESP 18; O2SAT 97
[2019-06-21 00:55] LABS: BNP,B-Type NATRIURETIC PEPTIDE 199.9 pg/mL (0-100)
[2019-06-21 01:57] VITALS: BP 163/78; PULSE 98; RESP 20; O2SAT 97
--- NOTE | 2019-06-21 01:58 | ED.RN ---
THIS NURSE REVIEWED D/C INSTRUCTIONS WITH PT AND FAMILY. PT VERBALIZED UNDERSTANDING OF INSTRUCTIONS. PT DENIES FURTHER NEEDS OR QUESTIONS AT THIS TIME. PT AMBULATES FROM ROOM ON OWN WITHOUT ASSISTANCE FROM STAFF.
== END 2019-06-21 01:59 | disposition home or self-care (01) ==
PROVIDERS: Emergency Provider Emergency Medicine; Family Provider Internal Medicine; PCP Internal Medicine
DX: J22 Unspecified acute lower respiratory infection (principal); R09.89 Other specified symptoms and signs involving the circulatory and respiratory systems; R07.89 Other chest pain; R50.9 Fever, unspecified; R19.7 Diarrhea, unspecified; I10 Essential (primary) hypertension; E78.5 Hyperlipidemia, unspecified; Z79.01 Long term (current) use of anticoagulants; Z79.899 Other long term (current) drug therapy; Z88.2 Allergy status to sulfonamides; Z88.1 Allergy status to other antibiotic agents; Z88.0 Allergy status to penicillin; Z88.5 Allergy status to narcotic agent; Z90.49 Acquired absence of other specified parts of digestive tract; R06.02 Shortness of breath
CPT/HCPCS: 36415; 71046; 83880; 85025; 87040; 87449; 87633; 94640; 99283

== ENCOUNTER 2019-07-01 18:13 | Inpatient (IN) | payer MEDICARE, SELFPAY ==
[2019-07-01] VITALS (9 sets, daily range): BP systolic 154–209; BP diastolic 70–92; PULSE 84–98; RESP 17–29; TEMP 36.5–36.7; O2SAT 92–96; BMI 23.8; BMI 23.6
[2019-07-01] MEDS: Ipratropium/Albuterol Sulfate 3 ML AMPUL.NEB INHALATION (18:50)
[2019-07-01 19:00] LABS: Absolute Lymphocyte Count 1.54 X10^3/uL (0.83-4.51); Absolute Neutrophil Count 4.4 X10^3/uL (2.0-7.7); Basophil# 0.04 X10^3/uL; Basophil% 0.6 % (0-1); Eosinophil# 0.19 X10^3/uL; Eosinophils% 2.8 % (0-5); Hematocrit 41.4 % (37-47); Hemoglobin 13.7 g/dL (12.0-15.0); Lymphocyte # 1.54 X10^3/ul (4.0); Lymphocyte % 22.8 % (19-41); Mean Corp Hgb Conc 33.1 g/dL (32-36); Mean Corpuscular Hgb 30.9 pg (27.0-32.0); Mean Corpuscular Volume 93.2 fL (81-99); Mean Platelet Vol. 10.2 fl (6.2-12.0); Monocyte# 0.63 X10^3/uL; Monocyte% 9.3 % (0-10); NRBC Flagged by Analyzer 0 % (0-5); Neutrophil # 4.35 X10^3/uL (2.7-7.7); Neutrophil % 64.4 % (47-70); Platelet Count 253 K/mm3 (150-450); RBC Distribution Width CV 12.8 % (11.6-14.6); RBC Distribution Width SD 43.8 fl (35.1-43.9); Red Blood Count 4.44 M/mm3 (4.2-5.4); White Blood Count 6.8 K/mm3 (4.4-11.0)
--- NOTE | 2019-07-01 19:10 | RAD_ITS ---
STUDY: X-RAY CHEST REASON FOR EXAM: Female, 74 years old. Cough, congestion and generalized fatigue. TECHNIQUE: PA and lateral views of the chest. COMPARISON: June 20, 2019 FINDINGS: There is no new focal consolidation. There are stable prominent interstitial markings. The lungs are hyperinflated. There is peribronchial cuffing. There is a granuloma again noted at the left lung base. Normal size heart. Normal mediastinum and mitch. Normal visualized pulmonary arteries. Normal visualized aortic arch and descending thoracic aorta. There are diffuse degenerative changes of the visualized thoracic spine. Normal visualized ribs, clavicles, and shoulders. There is no demonstrated abnormality of the visualized soft tissue structures of the upper abdomen. RAD/Chest PA and Lateral IMPRESSION: Findings may reflect acute bronchitis. Electronically Signed: Ramandeep Ontiveros MD at 19:27 EST Tel , Service support ,
[2019-07-01 19:24] LABS: Anion Gap 6 (5-15); BUN 11 mg/dL (7-18); BUN/Creat Ratio 10.3 RATIO (10-20); Calcium,Total 9.1 mg/dL (8.5-10.1); Chloride 105 mmol/L (98-107); Creatinine, Serum 1.07 mg/dL (0.55-1.02); EST Glomerular Filtration Rate 53 mL/min (>60); Est Glom Filt Rate - Afr Amer 64 mL/min (>60); Estimated Creatinine Clearance 45.12 ml/min; Glucose 130 mg/dL (74-106); Potassium 3.2 mmol/L (3.5-5.1); Sodium Level 140 mmol/L (136-145)
[2019-07-01 19:36] LABS: BNP,B-Type NATRIURETIC PEPTIDE 63.2 pg/mL (0-100)
--- NOTE | 2019-07-01 19:58 | HP.PCM_ITS ---
Problem List (1) Community acquired pneumonia Status: Acute (2) Atypical pneumonia Status: Acute (3) Failure of outpatient treatment Status: Acute (4) Hypoxia Status: Acute (5) Dyslipidemia Status: Chronic (6) Benign hypertension Status: Chronic History of Present Illness Date of Admission: 07/01/19 Chief Complaint: cough The patient is a 74 year old F with a significant history of hypertension who presented to the emergency department with cough that started around 11 June 2019. This is patient's third visit to the emergency department for the same symptoms. Her cough is dry cough and occasionally she feels like there is something stuck in her throat. Associated with her symptoms is sinus congestion. Further she has shortness of breath and paroxysmal nocturnal dyspnea. She is unable to sleep because of the cough and the paroxysmal nocturnal dyspnea. Previously she was put on Tessalon pills but that did not help her . However she took Hycodan that helps with her cough but she ran out of it. She has been on Levaquin x2 courses but with no improvement. During the course of her symptoms she has tested negative for the flu. At the emergency department because of her multiple allergies she received doxycyline. Past Medical History Past Medical History (Chronic Problems): Chronic Problems (Last Reviewed 07/02/19 @ 00:29 by Jagdish Abreu MD) Dyslipidemia (Chronic) Benign hypertension (Chronic) Medical History: Medical History (Last Reviewed 07/02/19 @ 04:23 by Jagdish Abreu MD) Diarrhea R19.7 Difficulty balancing R29.818 Hx of concussion Z87.820 Loss of consciousness R40.20 HTN (hypertension) I10 Allergies amoxicillin [Amoxicillin] Allergy (Verified 07/01/19 18:17) Swelling azithromycin [From Zithromax] Allergy (Verified 07/01/19 18:17) Rash Penicillins Allergy (Verified 07/01/19 18:17) Hives Sulfa (Sulfonamide Antibiotics) Allergy (Verified 07/01/19 18:17) Angioedema sulfamethoxazole [From Septra] Allergy (Verified 07/01/19 18:17) Rash triamcinolone acetonide [From Nasacort AQ] Allergy (Verified 07/01/19 18:17) Rash trimethoprim [From Septra] Allergy (Verified 07/01/19 18:17) Rash codeine Adverse Reaction (Verified 07/01/19 18:17) Vomiting nitrofurantoin [From Macrobid] Adverse Reaction (Verified 07/01/19 18:17) Upset Stomach Home Medications: Ambulatory Orders Medication Instructions Recorded apixaban 2.5 mg tablet 2.5 mg PO BID 06/15/19 metoprolol succinate ER 25 mg 50 mg PO DAILY 06/15/19 tablet,extended release 24 hr zolpidem 10 mg tablet 10 mg PO QHS PRN PRN 06/15/19 Lisinopril [Zestril] 20 mg PO DAILY 06/20/19 levoFLOXacin tablet [Levaquin 750 mg PO DAILY #5 tab 06/21/19 tablet] Albuterol Sulfate [Proventil Hfa] 1 puff INHALATION Q6H PRN PRN MDD 07/01/19 2 puffs every 6 hours Atorvastatin Calcium [Lipitor] 20 mg PO QHS 07/01/19 Citalopram [Celexa] 10 mg PO QHS 07/01/19 Guaifenesin Dm [Robitussin Dm] 10 ml PO Q6H PRN PRN 07/01/19 Surgical History: Surgical History (Last Reviewed 07/02/19 @ 00:29 by Jagdish Abreu MD) H/O arthroscopy of left knee Z98.890 Surgical History: cholecystectomy, - - Breast reduction, tubal ligation, phlebectomy left leg, knee arthroscopy Psychiatric History: No 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 Denies: Head Aches, Sinus Drainage Cardiovascular: Denies: Chest Pain, Palpitations Respiratory: Reports: Cough, Shortness of Breath, Wheezing Gastrointestinal: Denies: Abdominal Pain, Nausea, Vomiting Genitourinary: Denies: Dysuria Musculoskeletal: Denies: Joint Pain, Joint Tenderness Skin: Denies: Rash, Wounds Neurological: Denies: Numbness, Tingling, Focal weakness Psychiatric: Denies: Anxiety, Depression, Homicidal Ideations, Suicidal Ideations Hematologic/ Lymphatic: Denies: Easy Bruising, Easy Bleeding VTE Information - Inpt Only VTE Present on Admission: No VTE Mechan Device Prophylaxis: None VTE Pharm Prophylaxis ordered?: Yes Patient Problems: Active and Suspected Problems (Last Reviewed 07/02/19 @ 00:29 by Jagdish Abreu MD) Atypical pneumonia (Acute) Failure of outpatient treatment (Acute) Hypoxia (Acute) Community acquired pneumonia (Acute) - Physical Exam Vitals/I&O's: Vital Signs Temp Pulse Resp BP Pulse Ox 98.0 F 98 29 H 185/70 H 93 07/01/19 19:54 07/01/19 19:54 07/01/19 19:54 07/01/19 19:54 07/01/19 19:54 Oxygen Flow Rate (L/min) 2 Oxygen Delivery Method Nasal Cannula Weight: 71.1 kg Body Mass Index (BMI) 23.8 General: Alert, Oriented x3, Cooperative HEENT: Atraumatic, PERRLA, EOMI, Normocephalic Neck: Supple, No JVD, Negative Carotid Bruits Lungs: Rhonchi, Short of Breath, Tachypneic, Wheezes Cardiovascular: Regular rate, Normal S1, Normal S2, No murmurs Abdomen: Bowel Sounds Present, Soft, Non Tender Extremities: No edema, Capillary Refill Less than 3 Seconds Skin: No rashes, No breakdown Musculoskeletal: No Tenderness to Palpation of Joints or Extremities Neurological: Cranial nerves II-XII grossly intact Psych/Mental Status: Normal Affect, Appropriate Laboratory Results 07/01/19 18:51: WBC 6.8, RBC 4.44, Hgb 13.7, Hct 41.4, MCV 93.2, MCH 30.9, MCHC 33.1, RDW Std Deviation 43.8, RDW Coeff of Stephan 12.8, Plt Count 253, MPV 10.2, Immature Gran % (Auto) 0.100, Neut % (Auto) 64.4, Lymph % (Auto) 22.8, Bollinger % (Auto) 9.3, Eos % (Auto) 2.8, Baso % (Auto) 0.6, Absolute Neuts (auto) 4.4, Absolute Lymphs (auto) 1.54, Nucleated RBC % 0 07/01/19 18:51: Sodium 140, Potassium 3.2 L, Chloride 105, Carbon Dioxide 29.0, Anion Gap 6, BUN 11, Creatinine 1.07 H, Estim Creat Clear Calc 45.12, Est GFR (MDRD) Af Amer 64, Est GFR (MDRD) Non-Af 53 L, BUN/Creatinine Ratio 10.3, Glucose 130 H, Calcium 9.1, Troponin I < 0.015 07/01/19 18:51: B-Natriuretic Peptide 63.2 Current Medications Doxycycline Hyclate 100 mg/ (Dextrose) 260 mls @ 250 mls/hr IV X1 ONE Stop: 07/01/19 20:58 Assessment/Plan All Active Problems (Last Reviewed 07/02/19 @ 00:29 by Jagdish Abreu MD) Atypical pneumonia (Acute) Failure of outpatient treatment (Acute) Hypoxia (Acute) Community acquired pneumonia (Acute) The patient is a 74 year old F with a significant history of hypertension who presented to the emergency department with cough shortness of breath and hypoxia consistent with likely community-acquired pneumonia. Sepsis secondary to Community acquired pneumonia Impression of chest x-ray by radiologist was acute bronchitis. Patient has received multiple course of antibiotics and community acquired pneumonia is a strong consideration. RR is as high as 29. Heart rate is more than 90. Oxygen saturation: 88% with ambulation as reported by emergency department doctor. Blood culture ?2 is pending Antibiotics: Patient received Doxycycline at the emergency department. Patient has allergy to penicillin but reportedly she had a localized rash after penicillin shots. Will start patient on ceftriaxone. Continue doxycycline started at the emergency department. DuoNeb scheduled. Albuterol as needed Legionella antigen screen and Strep antigen ordered Follow comprehensive respiratory pathogen panel ordered at the emergency department. Because of her wheezing on examination will start patient on prednisone. Hypokalemia On presentation her potassium was 3.2. This could be likely due to home breathing treatments. Supplement and trend BMP. Hypertensive urgency Patient with systolic blood pressure more than 180. Lisinopril and metoprolol continued. Would add PRN hydralazine IV. History of thrombophilia (factor V Leiden deficiency and other unspecified hemophilia) with DVT Eliquis continued DVT prophylaxis Subcutaneous Lovenox Code Visit Inpatient E&M: 03604 Init Hosp L3
--- NOTE | 2019-07-01 20:17 | ED.VIS.GEN ---
History of Present Illness Chief Complaint: Shortness of Breath Narrative: Patient presenting for evaluation secondary to a cough and shortness of breath. Patient reports that over the course of about the last 2 weeks she has been dealing with a significant respiratory illness. Patient states that she initially saw a urgent care with swab her for influenza and this was found to be negative. Patient at that time was seen in the emergency department shortly thereafter, had a chest x-ray and lab work that was all found to be negative and was discharged with Deedee Dejesus. Patient was seen subsequently a couple of days later and was thought to have bronchitis or pneumonia and was started on Levaquin. Patient states that despite completing her course of Levaquin she continues to have a wet sounding nonproductive cough, generalized fatigue, as well as shortness of breath on exertion. Patient was seen by primary care who extended her course of Levaquin, but despite this she is still not feeling any better. She denies any nausea vomiting or diarrhea. She denies any history of lung disease or smoking. Review of systems otherwise negative. Past Medical History - Allergies and Home Meds Allergies/Adverse Reactions: Allergies amoxicillin [Amoxicillin] Allergy (Verified 07/01/19 18:17) Swelling azithromycin [From Zithromax] Allergy (Verified 07/01/19 18:17) Rash Penicillins Allergy (Verified 07/01/19 18:17) Hives Sulfa (Sulfonamide Antibiotics) Allergy (Verified 07/01/19 18:17) Angioedema sulfamethoxazole [From Septra] Allergy (Verified 07/01/19 18:17) Rash triamcinolone acetonide [From Nasacort AQ] Allergy (Verified 07/01/19 18:17) Rash trimethoprim [From Septra] Allergy (Verified 07/01/19 18:17) Rash codeine Adverse Reaction (Verified 07/01/19 18:17) Vomiting nitrofurantoin [From Macrobid] Adverse Reaction (Verified 07/01/19 18:17) Upset Stomach Primary Care Physician: Magda Ayala DO [Primary Care Provider] - Past Medical History: - - Hypertension and hyperlipidemia Surgical History: cholecystectomy, - - Breast reduction, tubal ligation, phlebectomy left leg, knee arthroscopy Smoking Status: Never smoker - Family History Maternal Family History: Reports: No pertinent history Paternal Family History: Reports: Stroke Review of Systems All systems negative except as indicated General: Reports: Malaise Eyes: Denies: Visual changes - bilaterally, Diplopia ENT: Denies: Rhinorrhea, Sore throat Cardiovascular: Denies: Chest pain, Palpitations Respiratory: Reports: Dyspnea, Cough, Dyspnea on exertion Gastrointestinal: Denies: Abdominal pain, Nausea, Vomiting, Diarrhea, Melena, Hematochezia Genitourinary: Denies: Dysuria, Hematuria, Frequency Musculoskeletal: Denies: Back pain, Extremity Pain Skin: Denies: Rash, Wounds Neurological: Denies: Headache, Weakness, Numbness Psych: Denies: Depression Endocrine: Denies: Polyuria Hematologic: Denies: Easy bleeding Allergy: Denies: Swelling of the mouth Physical Exam Vital Signs/Narrative: Vital Signs Temp Pulse Resp BP Pulse Ox 07/01/19 20:00 98.0 F 98 29 H 165/87 H 93 07/01/19 19:54 98.0 F 98 29 H 185/70 H 93 07/01/19 18:50 90 20 H 94 07/01/19 18:17 97.9 F 84 17 193/77 H 92 07/01/19 18:13 97.9 F 84 17 193/77 H 92 Inital Vital Signs reviewed: Yes General: Well nourished, Well developed, No Acute Distress Head: Normocephalic, Atraumatic Eyes: Perrl, EOMI ENT: Moist mucous membranes, No rhinorrhea Neck: Supple, Nontender Cardiovascular: No murmurs, Tachycardia Respiratory: Rales - Right sided greater than left, - - Tachypneic Abdomen: Soft, Nontender, Nondistended, Normal bowel sounds Back: Nontender, Normal Inspection Extremities: Nontender, No edema Skin: Normal color, No rash Neurological: Alert, Oriented x3, Cranial nerves II-XII grossly intact, Normal Strength, Normal Sensation Psychological: Normal affect, Normal Mood Diagnostic/Tx/Re-eval - Medical Decision Making Patient presented secondary to a respiratory illness. Respiratory panel was sent. PA and lateral chest x-ray by my personal review shows interstitial infiltrates for which I am suspicious for the possibility of an atypical pneumonia. CBC chemistry lactic acid were found to be unremarkable. Patient was given a breathing treatment in the emergency department. Patient was ambulated, and had significant dyspnea with respiratory rates in the 30s and a pulse ox that dropped to the 88% range. At this point I believe the patient requires admission for failed outpatient treatment of atypical pneumonia. Patient was given a dose of doxycycline in the emergency department. ED Disposition - Plan for ED Patient: Disposition: Acute Care Hospital [facility] Diagnosis: Atypical pneumonia, Failure of outpatient treatment, Hypoxia Referrals: Magda Ayala DO [Primary Care Provider] -
[2019-07-01] MEDS: Atorvastatin Calcium 20 MG Tablet PO (22:21)
[2019-07-01] MEDS: guaiFENesin 1,200 MG Tablet 1200 MG PO (22:22)
[2019-07-01] MEDS: Citalopram 10 MG Tablet PO (22:22)
[2019-07-01] MEDS: APIXABAN 2.5 MG TABLET PO (22:22)
[2019-07-01] MEDS: 0.9% Saline Lock 10 ML Syringe IV (23:19)
[2019-07-01 23:30] LABS: Bedside Glucose 112 mg/dL (70-110)
[2019-07-02] VITALS (23 sets, daily range): BP systolic 140–187; BP diastolic 55–94; PULSE 76–111; RESP 16–28; TEMP 36.3–36.6; O2SAT 21–97
[2019-07-02] MEDS: Ipratropium/Albuterol Sulfate 3 ML AMPUL.NEB INHALATION ×4 (00:09→19:20)
[2019-07-02] MEDS: predniSONE 20 MG Tablet 40 MG PO (01:28)
[2019-07-02] MEDS: hydrALAZINE 20 MG/ML Vial 10 MG IV ×3 (03:16→12:34)
[2019-07-02] MEDS: 0.9% Saline Lock 10 ML Syringe IV ×5 (03:17→21:23)
[2019-07-02 03:54] LABS: M R Staph aureus DNA By PCR Negative (Negative); Probe Check PASS; Specimen Processing Control PASS
[2019-07-02 06:20] LABS: Absolute Neutrophil Count 8.3 X10^3/uL (2.0-7.7); Anion Gap 9 (5-15); BUN 8 mg/dL (7-18); BUN/Creat Ratio 10.9 RATIO (10-20); Basophil# 0.04 X10^3/uL; Basophil% 0.4 % (0-1); Calcium,Total 9.1 mg/dL (8.5-10.1); Chloride 105 mmol/L (98-107); Creatinine, Serum 0.74 mg/dL (0.55-1.02); EST Glomerular Filtration Rate 82 mL/min (>60); Eosinophil# 0.02 X10^3/uL; Eosinophils% 0.2 % (0-5); Est Glom Filt Rate - Afr Amer 99 mL/min (>60); Estimated Creatinine Clearance 48.28 ml/min; Glucose 194 mg/dL (74-106); Hematocrit 42.7 % (37-47); Hemoglobin 14.1 g/dL (12.0-15.0); Lymphocyte % 7.6 % (19-41); Mean Corpuscular Hgb 30.9 pg (27.0-32.0); Mean Corpuscular Volume 93.4 fL (81-99); Mean Platelet Vol. 10.3 fl (6.2-12.0); Monocyte# 0.13 X10^3/uL; Monocyte% 1.4 % (0-10); NRBC Flagged by Analyzer 0 % (0-5); Neutrophil # 8.34 X10^3/uL (2.7-7.7); Platelet Count 243 K/mm3 (150-450); Potassium 3.8 mmol/L (3.5-5.1); RBC Distribution Width CV 12.9 % (11.6-14.6); RBC Distribution Width SD 43.6 fl (35.1-43.9); Red Blood Count 4.57 M/mm3 (4.2-5.4); Sodium Level 138 mmol/L (136-145); White Blood Count 9.3 K/mm3 (4.4-11.0)
[2019-07-02] MEDS: guaiFENesin 1,200 MG Tablet 1200 MG PO ×2 (07:44→21:23)
[2019-07-02] MEDS: APIXABAN 2.5 MG TABLET PO ×2 (07:44→21:22)
[2019-07-02] MEDS: Metoprolol(XL)Succ 50 MG Tablet PO (07:44)
[2019-07-02] MEDS: Lisinopril 20 MG Tablet PO (07:44)
--- NOTE | 2019-07-02 08:55 | PN_ITS ---
Patient Problems: Active and Suspected Problems (Last Reviewed 07/02/19 @ 04:23 by Jagdish Abreu MD) Acute bronchitis (Acute) Hypoxia (Acute) Community acquired pneumonia (Suspected) Subjective: Chief complaint: Follow-up after admission for acute bronchitis, probable pneumonia and acute hypoxic respiratory failure. Patient seen and examined. No acute events overnight. This morning, she complained of increasing shortness of breath and she attributed it to anxiety which was worsened by breathing treatment. Still having dry cough, no sputum production. Denies fever or chills. She is afebrile, slightly tachycardic, blood pressure is elevated, pulse ox is 93% on 3 L. - Physical Exam Vitals/I&O's: Vital Signs Temp Pulse Resp BP Pulse Ox 97.7 F L 109 H 22 H 178/94 H 94 07/02/19 07:02 07/02/19 07:44 07/02/19 07:31 07/02/19 07:31 07/02/19 07:38 Oxygen Flow Rate (L/min) 3 Oxygen Delivery Method Nasal Cannula Weight: 155 lb 5 oz Body Mass Index (BMI) 23.6 Intake and Output for Last 24 Hours 06/30/19 07/01/19 07/02/19 23:59 23:59 23:59 Intake Total 610 / 610 Output Total 150 / 150 Balance 460 / 460 General: Alert, Oriented x3, Cooperative, - - Minimally short of breath, anxious. HEENT: Atraumatic, PERRLA, EOMI, Normocephalic Oral: Moist Mucosa, No Gingival or Mucosal Lesions/ Ulcerations Neck: Supple, No JVD, Negative Carotid Bruits, Trachea Midline, Thyroid Normal Size and Texture Lungs: No rales, Diminished, Rhonchi, Short of Breath, Wheezes, - - Decreased breath sounds bilateral, occasional wheezes, scattered rhonchi. Cardiovascular: Regular rate, Regular Rhythm, Normal S1, Normal S2, PMI Normal, Tachycardic Abdomen: Bowel Sounds Present, Soft, Non Tender, Non-Distended, No Hepato- splenomegaly Extremities: No clubbing, No cyanosis, No edema Skin: No rashes, No breakdown Lymphatic: No Cervical, Supraclavicular, or Inguinal Adenopathy Neurological: Cranial nerves II-XII grossly intact, Motor Exam 5/5 strength throughout Psych/Mental Status: Normal Affect, Appropriate, Alert and oriented to time, place, person, mood and affect Microbiology Past 72 Hours 07/01/19 21:50 Urine, Clean Catch Legionella Antigen - Final 07/01/19 21:50 Urine, Clean Catch Streptococcus pneumoniae Antigen (M - Final Laboratory Results 07/01/19 18:51: WBC 6.8, RBC 4.44, Hgb 13.7, Hct 41.4, MCV 93.2, MCH 30.9, MCHC 33.1, RDW Std Deviation 43.8, RDW Coeff of Stephan 12.8, Plt Count 253, MPV 10.2, Immature Gran % (Auto) 0.100, Neut % (Auto) 64.4, Lymph % (Auto) 22.8, [place] % (Auto) 9.3, Eos % (Auto) 2.8, Baso % (Auto) 0.6, Absolute Neuts (auto) 4.4, Absolute Lymphs (auto) 1.54, Nucleated RBC % 0 07/01/19 18:51: Sodium 140, Potassium 3.2 L, Chloride 105, Carbon Dioxide 29.0, Anion Gap 6, BUN 11, Creatinine 1.07 H, Estim Creat Clear Calc 45.12, Est GFR (MDRD) Af Amer 64, Est GFR (MDRD) Non-Af 53 L, BUN/Creatinine Ratio 10.3, Glucose 130 H, Calcium 9.1, Troponin I < 0.015 07/01/19 18:51: B-Natriuretic Peptide 63.2 07/01/19 18:51: Magnesium 2.0 07/01/19 23:25: POC Glucose 112 H 07/02/19 01:05: Lactic Acid 1.0 07/02/19 01:30: MRSA (PCR) Negative 07/02/19 05:50: WBC 9.3, RBC 4.57, Hgb 14.1, Hct 42.7, MCV 93.4, MCH 30.9, MCHC 33.0, RDW Std Deviation 43.6, RDW Coeff of Stephan 12.9, Plt Count 243, MPV 10.3, Immature Gran % (Auto) 0.400, Neut % (Auto) 90.0 H, Lymph % (Auto) 7.6 L, Stonewall % (Auto) 1.4, Eos % (Auto) 0.2, Baso % (Auto) 0.4, Absolute Neuts (auto) 8.3 H, Absolute Lymphs (auto) 0.70 L, Nucleated RBC % 0 07/02/19 05:50: Sodium 138, Potassium 3.8, Chloride 105, Carbon Dioxide 24.0, Anion Gap 9, BUN 8, Creatinine 0.74, Estim Creat Clear Calc 48.28, Est GFR (MDRD) Af Amer 99, Est GFR (MDRD) Non-Af 82, BUN/Creatinine Ratio 10.9, Glucose 194 H, Calcium 9.1 Clinical Impression(s) from Imaging Studies Chest X-Ray 07/01/19 19:10 IMPRESSION: Findings may reflect acute bronchitis. Electronically Signed: Ramandeep Ontiveros MD at 19:27 EST Tel , Service support , Current Medications Acetaminophen (Tylenol) 650 mg PO Q6H PRN PRN PRN Reason: Pain Score 1-3/Temp > 100.7 F Albuterol Sulfate (Ventolin Aerosols) 2.5 mg INHALATION Q2H PRN PRN PRN Reason: Shortness of Breath/Wheezing Albuterol/Ipratropium (Duoneb) 3 ml INHALATION Q4HWA.RT [facility] Last Admin: 07/02/19 07:05 Dose: 3 ml Documented by: Apixaban (Eliquis) 2.5 mg PO BID [facility] Last Admin: 07/02/19 07:44 Dose: 2.5 mg Documented by: Atorvastatin Calcium (Lipitor) 20 mg PO QHS [facility] Last Admin: 07/01/19 22:21 Dose: 20 mg Documented by: Citalopram Hydrobromide (Celexa) 10 mg PO QHS [facility] Last Admin: 07/01/19 22:22 Dose: 10 mg Documented by: Dextrose (D50w Syringe) 0 gm IV X1 PRN; Protocol PRN Reason: Hypoglycemia Glucagon () 1 mg IM .X1 PRN PRN Reason: Hypoglycemia Guaifenesin (Mucinex) 1,200 mg PO BID [facility] Last Admin: 07/02/19 07:44 Dose: 1,200 mg Documented by: Hydralazine HCl (Apresoline Iv) 10 mg IV Q4H PRN PRN PRN Reason: SBP > 160 Last Admin: 07/02/19 07:16 Dose: 10 mg Documented by: Ceftriaxone Sodium 2 gm/ (Sodium Chloride) 50 mls @ 100 mls/hr IV Q24H [facility] Stop: 07/08/19 22:01 Last Infusion: 07/01/19 22:57 Dose: Infused Documented by: Doxycycline Hyclate 100 mg/ (Dextrose) 260 mls @ 250 mls/hr IV Q12 [facility] Sodium Chloride () 250 mls @ 15 mls/hr IV .[id number] PRN PRN Reason: Saline Flush Lisinopril (Zestril) 20 mg PO DAILY [facility] Last Admin: 07/02/19 07:44 Dose: 20 mg Documented by: Metoprolol Succinate (Toprol Xl (Beta Johan)) 50 mg PO DAILY [facility] Last Admin: 07/02/19 07:44 Dose: 50 mg Documented by: Ondansetron HCl (Zofran) 4 mg IV Q8H PRN PRN PRN Reason: NAUSEA/VOMITING Potassium Chloride (K-Dur) [facility]q [facility] Last Admin: 07/02/19 07:44 Dose: 40 meq Documented by: Prednisone () 40 mg [facility] Last Admin: 07/02/19 07:41 Dose: Not Given Documented by: Senna/Docusate Sodium (Senokot-S, Pauline-Colace) 2 tablet PO BID PRN PRN PRN Reason: Constipation Sodium Chloride () 10 - 40 ml IV UD PRN PRN Reason: SALINE FLUSH Last Admin: 07/02/19 07:17 Dose: 10 ml Documented by: Zolpidem Tartrate (Ambien (Generic)) 5 mg PO QHS PRN PRN Reason: INSOMNIA Medical Necessity - Tobacco Use Smoking Status: Never smoker Assessment/Plan All Active Problems (Last Reviewed 07/02/19 @ 04:23 by Jagdish Abreu MD) Acute bronchitis (Acute) Hypoxia (Acute) This is a 74 years old female patient presented to the emergency room because of persistent shortness of breath and cough which has been going on over the last 3 weeks, has been on 2 Levaquin courses as outpatient without improvement, found to have findings consistent with acute bronchitis probably viral complicated by acute hypoxic respiratory failure as well as probable community-acquired pneumonia. #1 acute bronchitis: Likely viral with probable community-acquired pneumonia. Chest x-ray reviewed, no obvious infiltrate or consolidation. Patient has been afebrile, no leukocytosis. Pneumococcal and Legionella antigen are negative. Repeat routine blood work from today reviewed, unremarkable. Respiratory failure for viruses is pending as well as blood culture. She is on IV Rocephin and Zithromax empirically as well as prednisone and bronchodilators. Plan to continue same treatment. #2 acute hypoxic respiratory failure: Secondary to above, patient requiring up to 3 L of oxygen and she is dyspneic and tachypneic. She never smoked in her life, never been diagnosed with COPD or emphysema and she never been on oxygen at home. Plan as above. #3 hypertensive emergency: With history of hypertension. Blood pressure has been elevated, systolic blood pressure was in the 180 systolic, could be exaggerated by anxiety and restlessness. Continue lisinopril and metoprolol, IV adenosine PRN. 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 #5 hyperlipidemia: Continue statins. #6 depression/anxiety: Patient mentioned that she has been very anxious and rest less especially after she receives breathing treatment. She is on Celexa, plan to start her on Xanax as needed. #7 DVT prophylaxis: Continue Eliquis. This note was generated with [employer] dictation software. It may contain incorrect words, spelling, and punctuation that were not noted in checking the note before signing. Code Visit Inpatient E&M: 85130 Subs Hosp L2
--- NOTE | 2019-07-02 09:48 | CASEMGMT ---
RN CM Assessment Introduced role of RN CM to patient.? Patient is alert, oriented and able?to participate in RN CM Assessment. ?Care providers, pharmacy, and demographics verified. Presentation: Cough xlast 2 weeks, SOB. Seen in ER for cough x2 on 06/16/19 and 06/20/19. Initial work up negative and given Lilly butler, 2nd time thought had bronchitis or PNA and started on Levaquin. Completed Levaquin and seen PCP which extended Levaquin but is not feeling better. Seen at - Influenza swab negative. Admit Dx: CAP Re-Admit: No Barriers/Issues: None PCP: Magda Ayala Specialists: Seen Neuro once in [place] s/p fall with c/o Vertigo. States referred to [facility] for PT for Vertigo with Rodrick Gram but has not started yet d/t this cureent illness. [facility] Insurance: [employer] Rx Benefit:?Yes ?LNOK: Wayne Olvera. Semi Retired, Works 3days/week at [employer] but has been working FT recently d/t his brother having knee surgery. LW/HPOA: Yes has both, aware not on file at [facility] and aware will scan on file if brought in. HPOA- Wayne Olvera. Living Arrangements:? Lives with her in a [place] home with 2 steps to enter through the garage. ADL?s: Independent with ambulation and ADLs Transportation: Both patient and her drive, denies any transportation issues. DME: None HHC: None SNF: None Goal: Home and does not think will have any needs. Denies any issues, concerns, or questions with DC planning at this time. Aware CM remains available for any emerging needs. DC PLAN: Home with possible Home O2 or Nebulizer. CM to continue to follow for needs. In Network DME list provided to patient. CHRISTINA Conner
[2019-07-02] MEDS: ALPRAZolam 0.5 MG Tablet PO ×2 (10:56→21:22)
[2019-07-02] MEDS: Acetaminophen 325 MG Tablet 650 MG PO ×2 (10:56→17:01)
[2019-07-02] MEDS: Ondansetron 4 MG/2 ML Vial IV (11:05)
[2019-07-02] MEDS: Citalopram 10 MG Tablet PO (21:22)
[2019-07-02] MEDS: Atorvastatin Calcium 20 MG Tablet PO (21:23)
[2019-07-03] VITALS (10 sets, daily range): BP systolic 158–164; BP diastolic 63–88; PULSE 78–99; RESP 16–20; TEMP 35.7–36.7; O2SAT 86–97
[2019-07-03] MEDS: Ipratropium/Albuterol Sulfate 3 ML AMPUL.NEB INHALATION ×4 (07:19→19:34)
[2019-07-03] MEDS: predniSONE 20 MG Tablet 40 MG PO (08:24)
--- NOTE | 2019-07-03 08:57 | PCM.PROGNOTE ---
Patient Problems: Active and Suspected Problems (Last Reviewed 07/02/19 @ 04:23 by Jagdish Abreu MD) Acute bronchitis (Acute) Hypoxia (Acute) Community acquired pneumonia (Suspected) Subjective: Chief complaint: Follow-up after admission for acute bronchitis, probable pneumonia and acute hypoxic respiratory failure. Patient seen and examined. No acute events overnight. Patient mentioned that she had no significant improvement of her symptoms, still having shortness of breath and cough. Oxygen requirement slightly increased to 3.5 L this morning. Anxiety is improving with as needed Xanax. Blood pressure is slight elevated but trending down, afebrile, not tachycardic, pulse ox is 92% on 3.5 L. - Physical Exam Vitals/I&O's: Vital Signs Temp Pulse Resp BP Pulse Ox 96.3 F L 99 18 162/63 H 92 07/03/19 07:49 07/03/19 07:49 07/03/19 07:49 07/03/19 07:49 07/03/19 07:49 Oxygen Flow Rate (L/min) 3.5 Oxygen Delivery Method Nasal Cannula Weight: 155 lb 5 oz Body Mass Index (BMI) 23.6 Intake and Output for Last 24 Hours 07/01/19 07/02/19 07/03/19 23:59 23:59 23:59 Intake Total 610 / 610 1231 / 1231 Output Total 150 / 150 Balance 460 / 460 1231 / 1231 General: Alert, Oriented x3, Cooperative, - - Minimally short of breath. HEENT: Atraumatic, PERRLA, EOMI, Normocephalic Oral: Moist Mucosa, No Gingival or Mucosal Lesions/ Ulcerations Neck: Supple, No JVD, Negative Carotid Bruits, Trachea Midline, Thyroid Normal Size and Texture Lungs: Diminished, Rales, Rhonchi, - - Diminished sounds bilateral, faint crackles in the left base, scattered rhonchi. Cardiovascular: Regular rate, Regular Rhythm, Normal S1, Normal S2, PMI Normal Abdomen: Bowel Sounds Present, Soft, Non Tender, Non-Distended, No Hepato-splenomegaly Extremities: No clubbing, No cyanosis, No edema Skin: No rashes, No breakdown Lymphatic: No Cervical, Supraclavicular, or Inguinal Adenopathy Neurological: Cranial nerves II-XII grossly intact, Neuro grossly intact Psych/Mental Status: Normal Affect, Appropriate Microbiology Past 72 Hours 07/01/19 18:55 Mucosa - Nose Respiratory Panel (PCR) - Final 07/01/19 21:50 Urine, Clean Catch Legionella Antigen - Final 07/01/19 21:50 Urine, Clean Catch Streptococcus pneumoniae Antigen (M - Final Current Medications Acetaminophen (Tylenol) 650 mg PO Q6H PRN PRN PRN Reason: Pain Score 1-3/Temp > 100.7 F Last Admin: 07/02/19 17:01 Dose: 650 mg Documented by: Albuterol Sulfate (Ventolin Aerosols) 2.5 mg INHALATION Q2H PRN PRN PRN Reason: Shortness of Breath/Wheezing Albuterol/Ipratropium (Duoneb) 3 ml INHALATION Q4HWA.RT [facility] Last Admin: 07/03/19 07:19 Dose: 3 ml Documented by: Alprazolam (Xanax) 0.5 mg PO TID PRN PRN PRN Reason: ANXIETY/AGITATION Last Admin: 07/02/19 21:22 Dose: 0.5 mg Documented by: Apixaban (Eliquis) 2.5 mg PO BID [facility] Last Admin: 07/02/19 21:22 Dose: 2.5 mg Documented by: Atorvastatin Calcium (Lipitor) 20 mg PO QHS [facility] Last Admin: 07/02/19 21:23 Dose: 20 mg Documented by: Citalopram Hydrobromide (Celexa) 10 mg PO QHS [facility] Last Admin: 07/02/19 21:22 Dose: 10 mg Documented by: Glucagon () 1 mg IM .X1 PRN PRN Reason: Hypoglycemia Guaifenesin (Mucinex) 1,200 mg PO BID [facility] Last Admin: 07/02/19 21:23 Dose: 1,200 mg Documented by: Hydralazine HCl (Apresoline Iv) 10 mg IV Q4H PRN PRN PRN Reason: SBP > 160 Last Admin: 07/02/19 12:34 Dose: 10 mg Documented by: Ceftriaxone Sodium 2 gm/ (Sodium Chloride) 50 mls @ 100 mls/hr IV Q24H [facility] Stop: 07/08/19 22:01 Last Infusion: 07/02/19 22:03 Dose: Infused Documented by: Doxycycline Hyclate 100 mg/ (Dextrose) 260 mls @ 250 mls/hr IV Q12 [facility] Last Infusion: 07/02/19 23:34 Dose: Infused Documented by: Sodium Chloride () 250 mls @ 15 mls/hr IV .[id number] PRN PRN Reason: Saline Flush Last Infusion: 07/03/19 00:27 Dose: 0 mls/hr Documented by: Dextrose (Dextrose 10%-Water) 250 mls @ 999 mls/hr IV X1 PRN; Protocol PRN Reason: HYPOGLYCEMIA Lisinopril (Zestril) 20 mg PO DAILY [facility] Last Admin: 07/02/19 07:44 Dose: 20 mg Documented by: Metoprolol Succinate (Toprol Xl (Beta Johan)) 50 mg PO DAILY [facility] Last Admin: 07/02/19 07:44 Dose: 50 mg Documented by: Ondansetron HCl (Zofran) 4 mg IV Q8H PRN PRN PRN Reason: NAUSEA/VOMITING Last Admin: 07/02/19 11:05 Dose: 4 mg Documented by: [facility] Last Admin: 07/03/19 08:23 Dose: 40 meq Documented by: [facility] () [facility] Last Admin: 07/03/19 08:24 Dose: 40 mg Documented by: Senna/Docusate Sodium (Senokot-S, Pauline-Colace) 2 tablet PO BID PRN PRN PRN Reason: Constipation Sodium Chloride () 10 - 40 ml IV UD PRN PRN Reason: SALINE FLUSH Last Admin: 07/02/19 21:23 Dose: 10 ml Documented by: Zolpidem Tartrate (Ambien (Generic)) 5 mg PO QHS PRN PRN Reason: INSOMNIA Medical Necessity - Tobacco Use Smoking Status: Never smoker Assessment/Plan All Active Problems (Last Reviewed 07/02/19 @ 04:23 by Jagdish Abreu MD) Acute bronchitis (Acute) Hypoxia (Acute) This is a 74 years old female patient presented to the emergency room because of persistent shortness of breath and cough which has been going on over the last 3 weeks, has been on 2 Levaquin courses as outpatient without improvement, found to have findings consistent with acute bronchitis probably viral complicated by acute hypoxic respiratory failure as well as probable community-acquired pneumonia. #1 acute bronchitis/probable community-acquired pneumonia: She is on IV Rocephin and doxycycline as well as prednisone and bronchodilators. Patient remained afebrile, no leukocytosis. Still symptomatic, minimal or no improvement, still requiring oxygen. Chest x-ray reviewed, no obvious infiltrate or consolidation. Pneumococcal and Legionella antigen are negative. Respiratory panel for viruses negative. Blood cultures pending. Plan to continue same treatment, incentive spirometer, wean off oxygen as tolerated. #2 acute hypoxic respiratory failure: Secondary to above, patient requiring up to 3.5 L of oxygen today but she is not very dyspneic or tachypneic. She never smoked in her life, never been diagnosed with COPD or emphysema and she never been on oxygen at home. Plan as above. #3 hypertensive emergency: With history of hypertension. Blood pressure started to come down, systolic has been around 160s. Continue lisinopril and metoprolol, IV adenosine PRN. 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 #5 hyperlipidemia: Continue statins. #6 depression/anxiety: Improving, continue on Celexa and Xanax as needed. #7 DVT prophylaxis: Continue Eliquis. This note was generated with [employer] dictation software. It may contain incorrect words, spelling, and punctuation that were not noted in checking the note before signing. Code Visit Inpatient E&M: 83429 Subs Hosp L2
[2019-07-03] MEDS: APIXABAN 2.5 MG TABLET PO ×2 (09:46→21:32)
[2019-07-03] MEDS: Metoprolol(XL)Succ 50 MG Tablet PO (09:47)
[2019-07-03] MEDS: Lisinopril 20 MG Tablet PO (09:47)
[2019-07-03] MEDS: guaiFENesin 1,200 MG Tablet 1200 MG PO ×2 (09:47→21:32)
[2019-07-03] MEDS: 0.9% Saline Lock 10 ML Syringe IV ×2 (09:48→21:33)
[2019-07-03] MEDS: Atorvastatin Calcium 20 MG Tablet PO (21:32)
[2019-07-03] MEDS: Citalopram 10 MG Tablet PO (21:32)
[2019-07-03] MEDS: ALPRAZolam 0.5 MG Tablet PO (22:06)
[2019-07-03] MEDS: Zolpidem Tartrate 5 MG Tablet PO (23:50)
[2019-07-04] VITALS (10 sets, daily range): BP systolic 145–190; BP diastolic 65–90; PULSE 77–90; RESP 16–20; TEMP 36.6–37.1; O2SAT 93–97
[2019-07-04] MEDS: Ipratropium/Albuterol Sulfate 3 ML AMPUL.NEB INHALATION ×4 (07:14→17:38)
--- NOTE | 2019-07-04 08:10 | RAD_ITS ---
STUDY: X-RAY CHEST REASON FOR EXAM: Female, 74 years old. Shortness of breath. Cough. TECHNIQUE: PA and lateral views of the chest. COMPARISON: Comparison is made with prior examination dated July 01, 2019. FINDINGS: Persistent increased markings at the lung bases slightly worse on the left side suggestive of bibasilar atelectasis and/or early infiltrates. Further follow-up is recommended. Blunting of the left costophrenic angle posteriorly. Normal size heart. Normal mediastinum and mitch. Normal visualized pulmonary arteries. Normal visualized aortic arch and descending thoracic aorta. There are diffuse degenerative changes of the visualized thoracic spine. Normal visualized ribs, clavicles, and shoulders. There is no demonstrated abnormality of the visualized soft tissue structures of the upper abdomen. RAD/Chest PA and Lateral IMPRESSION: Increased markings at the lung bases slightly worse on the left side suggestive of bibasilar atelectasis and/or early infiltrate. Follow-up is recommended. Blunting of the left costophrenic angle. Electronically Signed: Oli Lynn, at 9:51 EST , Service support ,
[2019-07-04] MEDS: predniSONE 20 MG Tablet 40 MG PO (10:49)
[2019-07-04] MEDS: guaiFENesin 1,200 MG Tablet 1200 MG PO ×2 (10:49→22:57)
[2019-07-04] MEDS: Metoprolol(XL)Succ 50 MG Tablet PO (10:49)
[2019-07-04] MEDS: APIXABAN 2.5 MG TABLET PO ×2 (10:49→22:57)
[2019-07-04] MEDS: Lisinopril 20 MG Tablet PO (10:50)
--- NOTE | 2019-07-04 10:51 | PN_ITS ---
Patient Problems: Active and Suspected Problems (Last Reviewed 07/02/19 @ 04:23 by Jagdish Abreu MD) Acute bronchitis (Acute) Hypoxia (Acute) Community acquired pneumonia (Suspected) Subjective: Chief complaint: Follow-up after admission for acute bronchitis, probable pneumonia and acute hypoxic respiratory failure. Patient seen and examined. No acute events overnight. She reported minimal improvement, still requiring up to 3 L of oxygen. Cough is improving. She has been afebrile. Blood pressure slightly elevated, heart rate stable, afebrile. - Physical Exam Vitals/I&O's: Vital Signs Temp Pulse Resp BP Pulse Ox 97.8 F 82 18 162/65 H 94 07/04/19 10:47 07/04/19 10:49 07/04/19 10:47 07/04/19 10:47 07/04/19 10:47 Oxygen Flow Rate (L/min) 3 Oxygen Delivery Method Nasal Cannula Weight: 155 lb 5 oz Body Mass Index (BMI) 23.6 Intake and Output for Last 24 Hours 07/02/19 07/03/19 07/04/19 23:59 23:59 23:59 Intake Total 1231 / 1231 582 / 582 Balance 1231 / 1231 582 / 582 General: Alert, Oriented x3, Cooperative, No apparent distress HEENT: Atraumatic, PERRLA, EOMI, Normocephalic Oral: Moist Mucosa, No Gingival or Mucosal Lesions/ Ulcerations Neck: Supple, No JVD, Negative Carotid Bruits, Trachea Midline, Thyroid Normal Size and Texture Lungs: No wheeze, Diminished, Rales, Rhonchi, - - Decreased breath sounds at the bases, crackles on the left base, scattered rhonchi. Cardiovascular: Regular rate, Regular Rhythm, Normal S1, Normal S2, No murmurs, PMI Normal Abdomen: Bowel Sounds Present, Soft, Non Tender, Non-Distended, No Hepato- splenomegaly Extremities: No clubbing, No cyanosis, No edema Skin: No rashes, No breakdown Lymphatic: No Cervical, Supraclavicular, or Inguinal Adenopathy Neurological: Cranial nerves II-XII grossly intact, Neuro grossly intact Psych/Mental Status: Normal Affect, Appropriate, Alert and oriented to time, place, person, mood and affect Microbiology Past 72 Hours 07/01/19 18:51 Blood Culture (Wb) - Anticubital Left Blood Culture - Preliminary No growth in 48 hours. 07/01/19 19:30 Blood Culture (Wb) #2 - Right Hand Blood Culture - Preliminary No growth in 48 hours. 07/01/19 18:55 Mucosa - Nose Respiratory Panel (PCR) - Final 07/01/19 21:50 Urine, Clean Catch Legionella Antigen - Final 07/01/19 21:50 Urine, Clean Catch Streptococcus pneumoniae Antigen (M - Final Clinical Impression(s) from Imaging Studies Chest X-Ray 07/01/19 19:10 IMPRESSION: Findings may reflect acute bronchitis. Electronically Signed: Ramandeep Ontiveros MD at 19:27 EST Tel , Service support , Chest X-Ray 07/04/19 08:10 IMPRESSION: Increased markings at the lung bases slightly worse on the left side suggestive of bibasilar atelectasis and/or early infiltrate. Follow-up is recommended. Blunting of the left costophrenic angle. Electronically Signed: Oli Lynn, at 9:51 EST , Service support , Current Medications Acetaminophen (Tylenol) 650 mg PO Q6H PRN PRN PRN Reason: Pain Score 1-3/Temp > 100.7 F Last Admin: 07/02/19 17:01 Dose: 650 mg Documented by: Albuterol Sulfate (Ventolin Aerosols) 2.5 mg INHALATION Q2H PRN PRN PRN Reason: Shortness of Breath/Wheezing Albuterol/Ipratropium (Duoneb) 3 ml INHALATION Q4HWA.RT [facility] Last Admin: 07/04/19 07:14 Dose: 3 ml Documented by: Alprazolam (Xanax) 0.5 mg PO TID PRN PRN PRN Reason: ANXIETY/AGITATION Last Admin: 07/03/19 22:06 Dose: 0.5 mg Documented by: Apixaban (Eliquis) 2.5 mg PO BID [facility] Last Admin: 07/04/19 10:49 Dose: 2.5 mg Documented by: Atorvastatin Calcium (Lipitor) 20 mg PO QHS [facility] Last Admin: 07/03/19 21:32 Dose: 20 mg Documented by: Citalopram Hydrobromide (Celexa) 10 mg PO QHS [facility] Last Admin: 07/03/19 21:32 Dose: 10 mg Documented by: Glucagon () 1 mg IM .X1 PRN PRN Reason: Hypoglycemia Guaifenesin (Mucinex) 1,200 mg PO BID [facility] Last Admin: 07/04/19 10:49 Dose: 1,200 mg Documented by: Hydralazine HCl (Apresoline Iv) 10 mg IV Q4H PRN PRN PRN Reason: SBP > 160 Last Admin: 07/02/19 12:34 Dose: 10 mg Documented by: Ceftriaxone Sodium 2 gm/ (Sodium Chloride) 50 mls @ 100 mls/hr IV Q24H [facility] Stop: 07/08/19 22:01 Last Infusion: 07/03/19 22:07 Dose: Infused Documented by: Doxycycline Hyclate 100 mg/ (Dextrose) 260 mls @ 250 mls/hr IV Q12 [facility] Last Admin: 07/04/19 10:50 Dose: 250 mls/hr Documented by: Sodium Chloride () 250 mls @ 15 mls/hr IV .[id number] PRN PRN Reason: Saline Flush Last Infusion: 07/03/19 00:27 Dose: 0 mls/hr Documented by: Dextrose (Dextrose 10%-Water) 250 mls @ 999 mls/hr IV X1 PRN; Protocol PRN Reason: HYPOGLYCEMIA Lisinopril (Zestril) 20 mg PO DAILY [facility] Last Admin: 07/04/19 10:50 Dose: 20 mg Documented by: Metoprolol Succinate (Toprol Xl (Beta Johan)) 50 mg PO DAILY [facility] Last Admin: 07/04/19 10:49 Dose: 50 mg Documented by: Ondansetron HCl (Zofran) 4 mg IV Q8H PRN PRN PRN Reason: NAUSEA/VOMITING Last Admin: 07/02/19 11:05 Dose: 4 mg Documented by: Potassium Chloride (K-Dur) [facility] Last Admin: 07/04/19 10:49 Dose: 40 meq Documented by: Prednisone () [facility] Last Admin: 07/04/19 10:49 Dose: 40 mg Documented by: Senna/Docusate Sodium (Senokot-S, Pauline-Colace) 2 tablet PO BID PRN PRN PRN Reason: Constipation Sodium Chloride () 10 - 40 ml IV UD PRN PRN Reason: SALINE FLUSH Last Admin: 07/03/19 21:33 Dose: 10 ml Documented by: Zolpidem Tartrate (Ambien (Generic)) 5 mg PO QHS PRN PRN Reason: INSOMNIA Last Admin: 07/03/19 23:50 Dose: 5 mg Documented by: Medical Necessity - Tobacco Use Smoking Status: Never smoker Assessment/Plan All Active Problems (Last Reviewed 07/02/19 @ 04:23 by Jagdish Abreu MD) Acute bronchitis (Acute) Hypoxia (Acute) This is a 74 years old female patient presented to the emergency room because of persistent shortness of breath and cough which has been going on over the last 3 weeks, has been on 2 Levaquin courses as outpatient without improvement, found to have findings consistent with acute bronchitis probably viral complicated by acute hypoxic respiratory failure as well as probable community-acquired pneumonia. #1 acute bronchitis/probable community-acquired pneumonia: Remained on IV Rocephin and doxycycline as well as prednisone and bronchodilators. Bright, no leukocytosis. She reported minimal improvement, still requiring up to 3 L of oxygen. Chest x-ray repeated today and showed no significant difference from the admission chest x-ray. Official report reviewed, I doubt any worsening. Pneumococcal and Legionella antigen are negative. Respiratory panel for viruses negative. Blood cultures showed no growth in 48 hours. Plan to continue same treatment, wean off oxygen, possible DC home tomorrow on home oxygen. #2 acute hypoxic respiratory failure: Secondary to above, remains on 3 L, reported minimal improvement of her shortness of breath. She never smoked in her life, never been diagnosed with COPD or emphysema and she never been on oxygen at home. Plan as above. #3 hypertensive emergency: With history of hypertension. Blood pressure remained around 160 systolic. She is on lisinopril, metoprolol and IV hydralazine. Will increase lisinopril to 40 mg p.o. daily. 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 #5 hyperlipidemia: Continue statins. #6 depression/anxiety: Improving, continue on Celexa and Xanax as needed. #7 DVT prophylaxis: Continue Eliquis. This note was generated with [employer] dictation software. It may contain incorrect words, spelling, and punctuation that were not noted in checking the note before signing. Code Visit Inpatient E&M: 19380 Subs Hosp L2
[2019-07-04] MEDS: Atorvastatin Calcium 20 MG Tablet PO (22:57)
[2019-07-04] MEDS: Citalopram 10 MG Tablet PO (22:57)
[2019-07-04] MEDS: hydrALAZINE 20 MG/ML Vial 10 MG IV (23:40)
[2019-07-04] MEDS: 0.9% Saline Lock 10 ML Syringe IV (23:40)
[2019-07-05] VITALS (13 sets, daily range): BP systolic 148–173; BP diastolic 54–70; PULSE 74–87; RESP 16–20; TEMP 36.2–36.5; O2SAT 84–96
[2019-07-05] MEDS: ALPRAZolam 0.5 MG Tablet PO ×2 (02:06→13:04)
[2019-07-05] MEDS: Ipratropium/Albuterol Sulfate 3 ML AMPUL.NEB INHALATION ×4 (07:17→20:16)
[2019-07-05] MEDS: Lisinopril 40 MG Tablet PO (08:44)
[2019-07-05] MEDS: Metoprolol(XL)Succ 50 MG Tablet PO (08:44)
[2019-07-05] MEDS: amLODIPine 5 MG Tablet PO (08:44)
[2019-07-05] MEDS: predniSONE 20 MG Tablet 40 MG PO (08:44)
[2019-07-05] MEDS: guaiFENesin 1,200 MG Tablet 1200 MG PO ×2 (08:45→21:34)
[2019-07-05] MEDS: APIXABAN 2.5 MG TABLET PO ×2 (08:45→21:34)
--- NOTE | 2019-07-05 10:29 | NURSING ---
as walk progressed through hallway- pt conversant, although states she was becoming more SOB so quit talking during ambulation and that helped with her ZARATE.
--- NOTE | 2019-07-05 10:31 | NURSING ---
increased in coughing, poor cough/hand hygiene
[2019-07-05] MEDS: 0.9% Saline Lock 10 ML Syringe IV ×2 (10:44→21:39)
[2019-07-05] MEDS: hydrALAZINE 20 MG/ML Vial 10 MG IV (10:44)
--- NOTE | 2019-07-05 10:59 | PCM.PROGNOTE ---
Patient Problems: Active and Suspected Problems (Last Reviewed 07/02/19 @ 04:23 by Jagdish Abreu MD) Hypoxia (Acute) Community acquired pneumonia (Suspected) Subjective: Chief complaint: Follow-up after admission for acute bronchitis, probable pneumonia and acute hypoxic respiratory failure. She has been having uncontrolled hypertension. Patient seen and examined. No acute events overnight. Today, she feels better but still requiring 3 L of oxygen without any improvement. Her troponin has been very high, systolic was up to 190s. Still complaining of mild cough but improved. She has been afebrile, no tachycardia, pulse ox is 96% on 3 L. Her pulse ox came down to 85% on room air with ambulation. - Physical Exam Vitals/I&O's: Vital Signs Temp Pulse Resp BP Pulse Ox 97.3 F L 83 20 H 173/67 H 85 07/05/19 10:24 07/05/19 10:44 07/05/19 10:24 07/05/19 10:24 07/05/19 10:29 Oxygen Flow Rate (L/min) 2 Oxygen Delivery Method Nasal Cannula Weight: 155 lb 5 oz Body Mass Index (BMI) 23.6 Intake and Output for Last 24 Hours 07/03/19 07/04/19 07/05/19 23:59 23:59 23:59 Intake Total 582 / 582 660 / 660 411 / 411 Output Total 550 / 550 800 / 800 Balance 582 / 582 110 / 110 -389 / -389 General: Alert, Oriented x3, Cooperative, No apparent distress HEENT: Atraumatic, PERRLA, EOMI, Normocephalic Oral: Moist Mucosa, No Gingival or Mucosal Lesions/ Ulcerations Neck: Supple, No JVD, Negative Carotid Bruits, Trachea Midline, Thyroid Normal Size and Texture Lungs: No wheeze, Diminished, Rales, Rhonchi, - - Decreased sounds at the bases, crackles on the left base, scattered rhonchi. Cardiovascular: Regular rate, Regular Rhythm, Normal S1, Normal S2, PMI Normal Abdomen: Bowel Sounds Present, Soft, Non Tender, Non-Distended, No Hepato-splenomegaly Extremities: No clubbing, No cyanosis, No edema Skin: No rashes, No breakdown Lymphatic: No Cervical, Supraclavicular, or Inguinal Adenopathy Neurological: Cranial nerves II-XII grossly intact, Neuro grossly intact Psych/Mental Status: Normal Affect, Appropriate, Alert and oriented to time, place, person, mood and affect Microbiology Past 72 Hours 07/01/19 18:51 Blood Culture (Wb) - Anticubital Left Blood Culture - Preliminary No growth in 48 hours. 07/01/19 19:30 Blood Culture (Wb) #2 - Right Hand Blood Culture - Preliminary No growth in 48 hours. 07/01/19 18:55 Mucosa - Nose Respiratory Panel (PCR) - Final Current Medications Acetaminophen (Tylenol) 650 mg PO Q6H PRN PRN PRN Reason: Pain Score 1-3/Temp > 100.7 F Last Admin: 07/02/19 17:01 Dose: 650 mg Documented by: Albuterol Sulfate (Ventolin Aerosols) 2.5 mg INHALATION Q2H PRN PRN PRN Reason: Shortness of Breath/Wheezing Albuterol/Ipratropium (Duoneb) 3 ml INHALATION Q4HWA.RT [facility] Last Admin: 07/05/19 07:17 Dose: 3 ml Documented by: Alprazolam (Xanax) 0.5 mg PO TID PRN PRN PRN Reason: ANXIETY/AGITATION Last Admin: 07/05/19 02:06 Dose: 0.5 mg Documented by: Amlodipine Besylate (Norvasc) 5 mg PO DAILY [facility] Last Admin: 07/05/19 08:44 Dose: 5 mg Documented by: Apixaban (Eliquis) 2.5 mg PO BID [facility] Last Admin: 07/05/19 08:45 Dose: 2.5 mg Documented by: Atorvastatin Calcium (Lipitor) 20 mg PO QHS [facility] Last Admin: 07/04/19 22:57 Dose: 20 mg Documented by: Citalopram Hydrobromide (Celexa) 10 mg PO QHS [facility] Last Admin: 07/04/19 22:57 Dose: 10 mg Documented by: Glucagon () 1 mg IM .X1 PRN PRN Reason: Hypoglycemia Guaifenesin (Mucinex) 1,200 mg PO BID [facility] Last Admin: 07/05/19 08:45 Dose: 1,200 mg Documented by: Guaifenesin/Codeine Phosphate (Robitussin Ac) 10 ml PO Q6H PRN PRN PRN Reason: COUGH Hydralazine HCl (Apresoline Iv) 10 mg IV Q4H PRN PRN PRN Reason: SBP > 160 Last Admin: 07/05/19 10:44 Dose: 10 mg Documented by: Ceftriaxone Sodium 2 gm/ (Sodium Chloride) 50 mls @ 100 mls/hr IV Q24H [facility] Stop: 07/08/19 22:01 Last Infusion: 07/04/19 23:47 Dose: Infused Documented by: Doxycycline Hyclate 100 mg/ (Dextrose) 260 mls @ 250 mls/hr IV Q12 [facility] Last Admin: 07/05/19 10:48 Dose: 200 mls/hr Documented by: Sodium Chloride () 250 mls @ 15 mls/hr IV .[id number] PRN PRN Reason: Saline Flush Last Infusion: 07/05/19 10:48 Dose: 0 mls/hr Documented by: Dextrose (Dextrose 10%-Water) 250 mls @ 999 mls/hr IV X1 PRN; Protocol PRN Reason: HYPOGLYCEMIA Lisinopril (Zestril) 40 mg PO DAILY [facility] Last Admin: 07/05/19 08:44 Dose: 40 mg Documented by: Metoprolol Succinate (Toprol Xl (Beta Johan)) 50 mg PO DAILY [facility] Last Admin: 07/05/19 08:44 Dose: 50 mg Documented by: Ondansetron HCl (Zofran) 4 mg IV Q8H PRN PRN PRN Reason: NAUSEA/VOMITING Last Admin: 07/02/19 11:05 Dose: 4 mg Documented by: Potassium Ch[facility] ([facility]) [facility] Last Admin: 07/05/19 08:43 Dose: 40 meq Documented by: [facility] () [facility] Last Admin: 07/05/19 08:44 Dose: 40 mg Documented by: Senna/Docusate Sodium (Senokot-S, Pauline-Colace) 2 tablet PO BID PRN PRN PRN Reason: Constipation Sodium Chloride () 10 - 40 ml IV UD PRN PRN Reason: SALINE FLUSH Last Admin: 07/05/19 10:44 Dose: 10 ml Documented by: Zolpidem Tartrate (Ambien (Generic)) 5 mg PO QHS PRN PRN Reason: INSOMNIA Last Admin: 07/03/19 23:50 Dose: 5 mg Documented by: Medical Necessity - Tobacco Use Smoking Status: Never smoker Assessment/Plan All Active Problems (Last Reviewed 07/02/19 @ 04:23 by Jagdish Abreu MD) Acute bronchitis (Acute) Hypoxia (Acute) This is a 74 years old female patient presented to the emergency room because of persistent shortness of breath and cough which has been going on over the last 3 weeks, has been on 2 Levaquin courses as outpatient without improvement, found to have findings consistent with acute bronchitis probably viral complicated by acute hypoxic respiratory failure as well as probable community-acquired pneumonia. #1 acute bronchitis/probable community-acquired pneumonia: She is on day 4 of IV Rocephin and doxycycline as well as prednisone and bronchodilators. She has been afebrile, still requiring oxygen at 3 L without any improvement and her pulse ox went down to 85% on room air with ambulation. Blood pressure elevated, she is not tachycardic. Chest x-ray repeated yesterday and showed no significant difference from the admission chest x-ray. Pneumococcal and Legionella antigen are negative. Respiratory panel for viruses negative. Blood cultures showed no growth in 48 hours. Plan to continue same treatment, wean off oxygen, ambulatory pulse ox. #2 acute hypoxic respiratory failure: Secondary to above, remains on 3 L, although she denies any worsening shortness of breath. Her pulse ox went down to 85% with ambulation on room air.. She never smoked in her life, never been diagnosed with COPD or emphysema and she never been on oxygen at home. Plan to continue same treatment, wean off oxygen as tolerated, patient may need to go home with home oxygen. #3 hypertensive urgency: With history of hypertension. Blood pressure still elevated, it was up to 190 systolic last night. She has been on metoprolol, lisinopril and IV hydralazine PRN. Dose of lisinopril increased yesterday but pressure still high. Plan to add Norvasc today. 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 #5 hyperlipidemia: Continue statins. #6 depression/anxiety: Improving, continue on Celexa and Xanax as needed. #7 DVT prophylaxis: Continue Eliquis. This note was generated with doUdealation software. It may contain incorrect words, spelling, and punctuation that were not noted in checking the note before signing. Code Visit Inpatient E&M: 60872 Subs Hosp L2
[2019-07-05] MEDS: guaiFENesin/Codeine 5 ML UDC 10 ML PO (13:03)
[2019-07-05] MEDS: Citalopram 10 MG Tablet PO (21:34)
[2019-07-05] MEDS: Atorvastatin Calcium 20 MG Tablet PO (21:34)
[2019-07-06] VITALS (14 sets, daily range): BP systolic 147–175; BP diastolic 60–84; PULSE 75–84; RESP 16–18; TEMP 36.4–36.7; O2SAT 84–98
[2019-07-06] MEDS: hydrALAZINE 20 MG/ML Vial 10 MG IV (03:39)
[2019-07-06] MEDS: 0.9% Saline Lock 10 ML Syringe IV ×2 (03:39→09:42)
[2019-07-06] MEDS: Ipratropium/Albuterol Sulfate 3 ML AMPUL.NEB INHALATION ×3 (07:23→15:04)
--- NOTE | 2019-07-06 09:08 | NURSING ---
pt eating breakfast- req to wait for am meds until finished.
[2019-07-06] MEDS: Metoprolol(XL)Succ 50 MG Tablet PO (09:34)
[2019-07-06] MEDS: APIXABAN 2.5 MG TABLET PO (09:34)
[2019-07-06] MEDS: Lisinopril 40 MG Tablet PO (09:34)
[2019-07-06] MEDS: amLODIPine 5 MG Tablet PO (09:34)
[2019-07-06] MEDS: predniSONE 20 MG Tablet 40 MG PO (09:34)
[2019-07-06] MEDS: guaiFENesin 1,200 MG Tablet 1200 MG PO (09:34)
--- NOTE | 2019-07-06 09:48 | DCINST_ITS ---
- Discharge Diagnoses Current Active Problems: Current Active and Chronic Problems (Last Reviewed 07/02/19 @ 04:23 by Jagdish Abreu MD) Hypoxia (Acute) You will use the following diet at home:: Cardiac Your food should be the consistency of: Regular Discharge Activity: Return to Normal Activity Weight Bearing Status: Weight bearing as tolerated Call your doctor if you observe: Fever of 101 or Higher, Shortness of breath, Dizziness, Fainting spells, Chest pain, Increased palpitations (irregular heartbeat), Uncontrolled pain Instructions: Using Oxygen at Home, Controlling High Blood Pressure, Taking Your Blood Pressure Allergies/Adverse Reactions: Allergies amoxicillin [Amoxicillin] Allergy (Verified 07/01/19 18:17) Swelling azithromycin [From Zithromax] Allergy (Verified 07/01/19 18:17) Rash Penicillins Allergy (Verified 07/01/19 18:17) Hives Sulfa (Sulfonamide Antibiotics) Allergy (Verified 07/01/19 18:17) Angioedema sulfamethoxazole [From Septra] Allergy (Verified 07/01/19 18:17) Rash triamcinolone acetonide [From Nasacort AQ] Allergy (Verified 07/01/19 18:17) Rash trimethoprim [From Septra] Allergy (Verified 07/01/19 18:17) Rash codeine Adverse Reaction (Verified 07/01/19 18:17) Vomiting nitrofurantoin [From Macrobid] Adverse Reaction (Verified 07/01/19 18:17) Upset Stomach Medications to take at Discharge apixaban 2.5 mg tablet 2.5 mg PO BID 06/15/19 metoprolol succinate ER 25 mg tablet,extended release 24 hr 50 mg PO DAILY 06/15/19 zolpidem 10 mg tablet 10 mg PO QHS PRN PRN 06/15/19 Albuterol Sulfate [Proventil Hfa] 1 puff INHALATION Q6H PRN PRN MDD 2 puffs every 6 hours 07/01/19 Atorvastatin Calcium [Lipitor] 20 mg PO QHS 07/01/19 Citalopram [Celexa] 10 mg PO QHS 07/01/19 Guaifenesin Dm [Robitussin Dm] 10 ml PO Q6H PRN PRN 07/01/19 Amlodipine [Norvasc] 5 mg PO DAILY #30 tab 07/06/19 Cefadroxil [Duricef] 1,000 mg PO BID #20 cap 07/06/19 Lisinopril [Zestril] 40 mg PO DAILY #30 tab 07/06/19 Oxygen, Home [Home Oxygen] 2 lpm NASAL CONT #1 unit 07/06/19 The following prescriptions were given: Cefadroxil [Duricef] 1,000 mg PO BID #20 cap Transmission Status: Pending to [facility] Oxygen, Home [Home Oxygen] 2 lpm NASAL CONT #1 unit Prescription Printed Amlodipine [Norvasc] 5 mg PO DAILY #30 tab Transmission Status: Pending to [facility] Lisinopril [Zestril] 40 mg PO DAILY #30 tab Transmission Status: Pending to [facility] Primary Care Physician: Magda Ayala DO [Primary Care Provider] - Please follow up with your Primary Care Physician in: 2-3 days. Test Results: Test results from this visit will be discussed in further detail at your follow- up appointment, if applicable.
--- NOTE | 2019-07-06 12:41 | DS.PCM_ITS ---
Discharge Date and Diagnosis - Problem List Patient Problems: Active and Suspected Problems (Last Reviewed 07/02/19 @ 04:23 by Jagdish Abreu MD) Hypoxia (Acute) Community acquired pneumonia (Suspected) Date of Admission: 07/01/19 Date of Discharge: 07/06/19 - Primary Discharge Diagnosis Active and Suspected Problems (Last Reviewed 07/02/19 @ 04:23 by Jagdish Abreu MD) #1 acute bronchitis. #2 probable community-acquired pneumonia. #3 acute hypoxic respiratory failure. #4 uncontrolled hypertension. - Secondary Discharge Diagnosis Chronic Problems (Last Reviewed 07/02/19 @ 04:23 by Jagdish Abreu MD) Anxiety (Chronic) Depression (Chronic) Dyslipidemia (Chronic) Benign hypertension (Chronic) Hospital Course and Treatment Imaging Results: Clinical Impression(s) from Imaging Studies Chest X-Ray 07/01/19 19:10 IMPRESSION: Findings may reflect acute bronchitis. Electronically Signed: Ramandeep Ontiveros MD at 19:27 EST Tel , Service support , Chest X-Ray 07/04/19 08:10 IMPRESSION: Increased markings at the lung bases slightly worse on the left side suggestive of bibasilar atelectasis and/or early infiltrate. Follow-up is recommended. Blunting of the left costophrenic angle. Electronically Signed: Oli Lynn, at 9:51 EST , Service support , Operations: None Procedures: None Summary of Care Provided: Patient seen and examined on the day of discharge and appeared to be stable to be discharged home. She denied any significant shortness of breath and actually feels better but remains on oxygen. She was taken for ambulatory pulse oximeter and her pulse ox dropped down to 84% on room air with ambulation and she required 2 L of oxygen. Her other vital signs are stable and she remained afebrile. The patient is a 74 year old F patient presented to the emergency room because of persistent shortness of breath with cough which has been going on for 3 we eks, was on 2 Levaquin courses as outpatient without improvement and she was found to have findings consistent with acute bronchitis probably viral as well as probable community-acquired pneumonia which was complicated by acute hypoxic respiratory failure. Chest x-ray on admission revealed no focal consolidation or infiltrate and findings may reflect acute bronchitis. Repeat chest x-ray also done and showed no significant change. Patient was admitted to the floor started on IV antibiotics, bronchodilators and prednisone. Routine blood work on admission was unremarkable except for mild hypokalemia which was replaced and corrected. There was no leukocytosis, lactic acid was normal and there was no evidence of sepsis or severe sepsis. EKG revealed no acute hemic changes. Troponin and BNP was unremarkable. Blood culture showed no growth in 48 hours. Pneumococcal and urinary antigen were negative. Respiratory panel for viruses were negative. In spite of aggressive treatment with IV antibiotics, steroids and bronchodilators, patient needed oxygen all the time and maximum was 3 L. Although her symptoms improved and she feels better, she remained on oxygen at 3 L but we were able to take her down to 2 L. Her blood pressure during this hospital stay was elevated and the systolic blood pressure was up to 190s. She was continued on lisinopril and metoprolol but her blood pressure continued to be high in spite of using IV adenosine PRN. She was started on Norvasc and dose of lisinopril increased to 40 mg p.o. daily. Ambulatory pulse oximetry performed and her pulse ox dropped down to 85% on ambulation with room air which improved to 91% on 2 L and she did qualify for home oxygen. Patient has been ambulatory at home and she will need home oxygen to be able to ambulate around and do her daily activities. Patient discharged home in a stable condition, discharged on home oxygen at 2 L, discharged on Duricef 1000 mg p.o. twice daily for 5 more days of treatment, discharged on Norvasc 5 mg p.o. daily, lisinopril increased from 20 mg p.o. daily to 40 mg p.o. daily, highly recommended to keep monitoring her blood pressure in the next couple of days at least twice daily, follow-up with PCP in 2 to 3 days. Patient Problems: Active and Suspected Problems (Last Reviewed 07/02/19 @ 04:23 by Jagdish Abreu MD) Hypoxia (Acute) Community acquired pneumonia (Suspected) - Physical Exam Vitals/I&O's: Vital Signs Temp Pulse Resp BP Pulse Ox 97.8 F 81 16 147/61 H 89 07/06/19 08:40 07/06/19 11:13 07/06/19 11:13 07/06/19 08:40 07/06/19 11:13 Oxygen Flow Rate (L/min) [ 2 AMBULATION with Oxygen] Oxygen Flow Rate (L/min) [ 0 AMBULATING on Room Air] Oxygen Flow Rate (L/min) [At 0 REST on Room Air] Oxygen Flow Rate (L/min) 2 Oxygen Delivery Method Nasal Cannula Weight: 155 lb 5 oz Body Mass Index (BMI) 23.6 Intake and Output for Last 24 Hours 07/04/19 07/05/19 07/06/19 23:59 23:59 23:59 Intake Total 660 / 660 1862.00 / 1862.00 460.25 / 460.25 Output Total 550 / 550 1800 / 1800 Balance 110 / 110 62.00 / 62.00 460.25 / 460.25 General: Alert, Oriented x3, Cooperative, No apparent distress HEENT: Atraumatic, PERRLA, EOMI, Normocephalic Oral: Moist Mucosa, No Gingival or Mucosal Lesions/ Ulcerations Neck: Supple, No JVD, Negative Carotid Bruits, Trachea Midline, Thyroid Normal Size and Texture Lungs: No wheeze, Diminished, Rhonchi, - - Diminished but sounds bilateral, more on the right base with faint crackles. Cardiovascular: Regular rate, Regular Rhythm, Normal S1, Normal S2, PMI Normal Abdomen: Bowel Sounds Present, Soft, Non Tender, Non-Distended, No Hepato- splenomegaly Extremities: No clubbing, No cyanosis, No edema Skin: No rashes, No breakdown Lymphatic: No Cervical, Supraclavicular, or Inguinal Adenopathy Neurological: Cranial nerves II-XII grossly intact, Neuro grossly intact Psych/Mental Status: Normal Affect, Appropriate Microbiology Past 72 Hours 07/01/19 18:51 Blood Culture (Wb) - Anticubital Left Blood Culture - Preliminary No growth in 48 hours. 07/01/19 19:30 Blood Culture (Wb) #2 - Right Hand Blood Culture - Preliminary No growth in 48 hours. Current Medications Acetaminophen (Tylenol) 650 mg PO Q6H PRN PRN PRN Reason: Pain Score 1-3/Temp > 100.7 F Last Admin: 07/02/19 17:01 Dose: 650 mg Documented by: Albuterol Sulfate (Ventolin Aerosols) 2.5 mg INHALATION Q2H PRN PRN PRN Reason: Shortness of Breath/Wheezing Albuterol/Ipratropium (Duoneb) 3 ml INHALATION Q4HWA.RT [facility] Last Admin: 07/06/19 11:12 Dose: 3 ml Documented by: Alprazolam (Xanax) 0.5 mg PO TID PRN PRN PRN Reason: ANXIETY/AGITATION Last Admin: 07/05/19 13:04 Dose: 0.5 mg Documented by: Amlodipine Besylate (Norvasc) 5 mg PO DAILY [facility] Last Admin: 07/06/19 09:34 Dose: 5 mg Documented by: Apixaban (Eliquis) 2.5 mg PO BID [facility] Last Admin: 07/06/19 09:34 Dose: 2.5 mg Documented by: Atorvastatin Calcium (Lipitor) 20 mg PO QHS [facility] Last Admin: 07/05/19 21:34 Dose: 20 mg Documented by: Citalopram Hydrobromide (Celexa) 10 mg PO QHS [facility] Last Admin: 07/05/19 21:34 Dose: 10 mg Documented by: Glucagon () 1 mg IM .X1 PRN PRN Reason: Hypoglycemia Guaifenesin (Mucinex) 1,200 mg PO BID [facility] Last Admin: 07/06/19 09:34 Dose: 1,200 mg Documented by: Guaifenesin/Codeine Phosphate (Robitussin Ac) 10 ml PO Q6H PRN PRN PRN Reason: COUGH Last Admin: 07/05/19 13:03 Dose: 10 ml Documented by: Hydralazine HCl (Apresoline Iv) 10 mg IV Q4H PRN PRN PRN Reason: SBP > 160 Last Admin: 07/06/19 03:39 Dose: 10 mg Documented by: Ceftriaxone Sodium 2 gm/ (Sodium Chloride) 50 mls @ 100 mls/hr IV Q24H [facility] Stop: 07/08/19 22:01 Last Infusion: 07/05/19 23:28 Dose: Infused Documented by: Doxycycline Hyclate 100 mg/ (Dextrose) 260 mls @ 250 mls/hr IV Q12 [facility] Last Infusion: 07/06/19 11:31 Dose: Infused Documented by: Sodium Chloride () 250 mls @ 15 mls/hr IV .[id number] PRN PRN Reason: Saline Flush Last Infusion: 07/06/19 09:43 Dose: 0 mls/hr Documented by: Dextrose (Dextrose 10%-Water) 250 mls @ 999 mls/hr IV X1 PRN; Protocol PRN Reason: HYPOGLYCEMIA Lisinopril (Zestril) 40 mg PO DAILY [facility] Last Admin: 07/06/19 09:34 Dose: 40 mg Documented by: Metoprolol Succinate (Toprol Xl (Beta Johan)) 50 mg PO DAILY [facility] Last Admin: 07/06/19 09:34 Dose: 50 mg Documented by: Ondansetron HCl (Zofran) 4 mg IV Q8H PRN PRN PRN Reason: NAUSEA/VOMITING Last Admin: 07/02/19 11:05 Dose: 4 mg Documented by: Pot[facility] ([facility]) [facility] Admin: 07/06/19 09:33 Dose: 40 meq Documented by: [facility] () [facility] Last Admin: 07/06/19 09:34 Dose: 40 mg Documented by: Senna/Docusate Sodium (Senokot-S, Pauline-Colace) 2 tablet PO BID PRN PRN PRN Reason: Constipation Sodium Chloride () 10 - 40 ml IV UD PRN PRN Reason: SALINE FLUSH Last Admin: 07/06/19 09:42 Dose: 10 ml Documented by: Zolpidem Tartrate (Ambien (Generic)) 5 mg PO QHS PRN PRN Reason: INSOMNIA Last Admin: 07/03/19 23:50 Dose: 5 mg Documented by: Discharge Activity: Return to Normal Activity Weight Bearing Status: Weight bearing as tolerated Call your doctor if you observe: Fever of 101 or Higher, Shortness of breath, Dizziness, Fainting spells, Chest pain, Increased palpitations (irregular heartbeat), Uncontrolled pain Home Medications: Medications to take at Discharge apixaban 2.5 mg tablet 2.5 mg PO BID 06/15/19 metoprolol succinate ER 25 mg tablet,extended release 24 hr 50 mg PO DAILY zolpidem 10 mg tablet 10 mg PO QHS PRN PRN 06/15/19 Albuterol Sulfate [Proventil Hfa] 1 puff INHALATION Q6H PRN PRN MDD 2 puffs every 6 hours 07/01/19 Atorvastatin Calcium [Lipitor] 20 mg PO QHS 07/01/19 Citalopram [Celexa] 10 mg PO QHS 07/01/19 Guaifenesin Dm [Robitussin Dm] 10 ml PO Q6H PRN PRN 07/01/19 Amlodipine [Norvasc] 5 mg PO DAILY #30 tab 07/06/19 Cefadroxil [Duricef] 1,000 mg PO BID #20 cap 07/06/19 Lisinopril [Zestril] 40 mg PO DAILY #30 tab 07/06/19 Oxygen, Home [Home Oxygen] 2 lpm NASAL CONT #1 unit 07/06/19 Following Prescrptions Were Given to Patient: Cefadroxil [Duricef] 1,000 mg PO BID #20 cap Transmission Status: Received by MELISSA ZALDIVAR RD Oxygen, Home [Home Oxygen] 2 lpm NASAL CONT #1 unit Prescription Printed Amlodipine [Norvasc] 5 mg PO DAILY #30 tab Transmission Status: Received by MELISSA ZALDIVAR RD Lisinopril [Zestril] 40 mg PO DAILY #30 tab Transmission Status: Received by MELIS[facility] Primary Care Physician: Magda Ayala DO [Primary Care Provider] - Please follow up with your Primary Care Physician in: 2-3 days. Patient Instructions: Controlling High Blood Pressure, Using Oxygen at Home, Taking Your Blood Pressure Disposition: Home Minutes spent on discharge:: 32 Patient Condition:: Stable Medical Necessity - Tobacco Use Smoking Status: Never smoker Meaningful Use Info Meaningful Use Diagnoses (Choose all that apply): None applicable Code Visit Inpatient E&M: 23245 Disch Hosp
--- NOTE | 2019-07-06 14:45 | NURSING ---
This RN called [facility] regarding portable/ home oxygen and notified them this is 2nd call. Notified by Jeffrey that call back would occur shortly. This RN received call from [facility] for oxygen delivery- currently planning for delivery at 1730. Pt aware.
--- NOTE | 2019-07-07 14:57 | CASEMGMT ---
Case Management DC F/u call: DC Date: 07/06/19 DC Diagnosis: #1 acute bronchitis. #2 probable community-acquired pneumonia. #3 acute hypoxic respiratory failure. #4 uncontrolled hypertension. DC Disposition: Home with Home O2 Lace/Strata: 04/24 Called patient cell phone listed on demographics, answered and this report writer introduced self and role. Patient states doing all right and knows it will take a little while to get better. Confirmed picked up her DC medications and denies any issues, concerns, or questions with [facility]CI, medications or f/u. Scheduled an appointment with pcp Dr Ayala on this Sunday. States Home Oxygen set up was done through [facility]. Thanked patient for choosing [facility] for care and ended conversation. Aarti Blake RNCM
== END 2019-07-06 16:32 | disposition home or self-care (01) | DRG 193 ==
LOC: ED 20:21 → MS3 20:26
PROVIDERS: Admitting Provider Hospitalist; Emergency Provider Emergency Medicine; Family Provider Internal Medicine; PCP Internal Medicine; Referring Provider Hospitalist; Visit Provider Hospitalist
DX: J18.9 Pneumonia, unspecified organism (principal); J96.01 Acute respiratory failure with hypoxia; D68.51 Activated protein C resistance; J20.9 Acute bronchitis, unspecified; E87.6 Hypokalemia; I16.0 Hypertensive urgency; Z86.718 Personal history of other venous thrombosis and embolism; Z79.01 Long term (current) use of anticoagulants; E78.5 Hyperlipidemia, unspecified; F41.9 Anxiety disorder, unspecified; F32.9 Major depressive disorder, single episode, unspecified
CPT/HCPCS: 36415; 71046; 80048; 82962; 83605; 83735; 83880; 84484; 85025; 87040; 87449; 87633; 87641; 94640; 94667; 94668; 99251; 99285; J7050; A4216; G0463; J0696; J2405

== ENCOUNTER → 2019-08-12 13:45 | Outpatient (CLI) | payer MEDICARE, SELFPAY ==
[2019-07-01 20:55] VITALS: BMI 23.6
--- NOTE | 2019-08-12 13:48 | RAD_ITS ---
STUDY: X-RAY CHEST REASON FOR EXAM: Female, 74 years old. bacterial pneumonia TECHNIQUE: PA and lateral views of the chest. COMPARISON: 07/04/2019 FINDINGS: The lungs are clear and expanded. There is no demonstrated pleural abnormality. Normal size heart. Normal mediastinum and mitch. Normal visualized pulmonary arteries. Normal visualized aortic arch and descending thoracic aorta. Normal visualized thoracic spine. Normal visualized ribs, clavicles, and shoulders. There is no demonstrated abnormality of the visualized soft tissue structures of the upper abdomen. RAD/Chest PA and Lateral IMPRESSION: Normal x-ray examination of the chest. Electronically Signed: Jermaine Ronquillo DO at 12:26 EST Tel , Service support ,
== END ==
PROVIDERS: Family Provider Internal Medicine; PCP Internal Medicine; Referring Provider Internal Medicine; Visit Provider Internal Medicine
DX: J15.9 Unspecified bacterial pneumonia (principal)
CPT/HCPCS: 71046

== ENCOUNTER 2019-12-09 10:30 | Outpatient (RCR) | payer MEDICARE, SELFPAY ==
[2019-07-01 20:55] VITALS: BMI 23.6
--- NOTE | 2019-09-25 12:18 | HP.PTEVAL ---
Patient's Visit Information PARESH LIVINGSTON is a 74 year old F referred to Physical Therapy by Edwin Sprague MD with a diagnosis of vertigo. Date of Evaluation: 09/25/19 Physical Therapist: Rodrick Johnson, DPT, OCS, CSCS - Visit Plan Frequency: 1-2x /Week Duration: 4-6 Weeks Plan: 1-2x/week as needed for 4-6 weeks around her 2.5 week vacation in October to . Treat with positional and balance as needed, monitor vestibular. May need [employer] balance assessment per order. - Subjective Findings: John Paul January 8 months ago was in [place] for wedding. Fell on bottom step but only remembers the ER squad. Hit head and was out 5 minutes. Ended up in ICU for 3 days and had MRI to fly home. Saw Jamie when she came back for f/u. Got pnumonia R lung a fw weeks later. 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 After she fell her vertigo was amplified. Had several MRIs to make sure everything was OK. Went to [facility] due to vertigoand referred by Jamie. Was in ER 3x around holidays with pneumonia. Did not notice vertigo while in hospital. Now Lying in bed for a few seconds it goes around. turning L to R side can give her spinning lasting a few seconds. Bending to pick something up can cause it also. Front load dryer is difficult. Truning to quick can throw balacne off. Balance is worse since the pneumonia. No dizzy spells in between. Balance has not been great since [place] . Sleeping is not great but that is normal for her. Not employed, retired. Spends day bumming around the house, not avoiding anything due to balacne or dizzyness. Basic ADLs and house cleaning normal. - Objective Walks I, trasnfers I and steps without rail today, VOR walking is challenging. Cervical ROM is symetrically limited 45 degrees B rotation adn 38 ext and she says this is normal for her. No pain. - L hallpike minh test. + R hallpike. Treated with Kenn and then negative test today. - Balance Scores Functional Gait Assessment Score: 27 % Disability: 10.0000 CATSIB Score (Max score 120 seconds): 120 - Goals Goal 1:: Abolish dizzyness with rolling in bed and bending over. Goal Time Frame: 4-6 Weeks Goal 2:: Pt feel 90% back to normal as before her fall. Goal Time Frame: 4-6 Weeks Goal 3:: DHI< 10% disability Goal Time Frame: 4-6 Weeks - Rehabilitation Potential Physical Therapy Diagnosis: R post canal BPPV Rehabilitation Potential: Good - Anticipated Interventions Patient/Client Instruction: Educate patient on: Condition, Plan of Care For the Purpose of:: To increase tolerance to activity/condition/position, To improve gait and locomotor functions Therapeutic Exercise to Include: Balance training Comment: vestibular ex/treat For the Purpose of:: To increase tolerance to activity/condition/position, To improve ability of physical actions for home/community/work/leisure Thank you for the opportunity to evaluate your patient. For Medicare and Medicare HMO plans, please review the plan of care and approve it. It will need to be FAXED BACK to us at [phone] for Medicare purposes. For Medicare only, by signing this I certify the plan of care. Please let me know if there are questions or concerns regarding this plan of care. Physician Signature: Date:
--- NOTE | 2019-11-17 08:14 | HP.PT.NRP ---
PARESH LIVINGSTON was seen in my office for initial evaluation on 09/25/19. The following Plan of Care was established for this patient: Initial Frequency: 1-2x /Week Initial Duration: 4-6 Weeks Patient/Client Instruction: Educate patient on: Condition, Plan of Care For the Purpose of:: To increase tolerance to activity/condition/position, To improve gait and locomotor functions Therapeutic Exercise to Include: Balance training For the Purpose of:: To increase tolerance to activity/condition/position, To improve ability of physical actions for home/community/work/leisure This patient was last seen in our office 09/30/19. Pertinent comments regarding their Physical therapy will appear below: Pt seen 2 visits and was 80% better. Was to f/u end September to ensure progress but did not schedule or attend that visit. I will discontinue at this time as it has been over a month. At this point I will be discontinuing this patient from physical therapy. I would be happy to see this patient again in the future if found appropriate by the physician. Thank you! Rodrick Johnson, DPT, OCS, CSCS
--- NOTE | 2019-12-09 11:04 | HP.PTDCSUM ---
It has been my pleasure to treat PARESH LIVINGSTON referred by Dr. Edwin Sprague MD, with the diagnosis of vertigo for a total of 3 visit(s). Discharge Date: 12/09/19 Please see the following information for a summary of their discharge status. Subjective: Was out due to villegas virus. Dizzyness has been pretty good. No more in bed . When she bends to garden adn comes up get a little dizzy described as lightheaded not spinning for a few seconds. Especially if she is there long time. No falls. Balance feels pretty good overall. Is on blood pressure meds. No dizzyness with HEP. % Improvement: 90 Objective/Function: - B hallpike. MSQ is good except for coming up from knee in standing. VOR walking is good and safe. FGA is perfect today. Educated patient on possible causes of lightheadedness with standing including possible orthostatic that she can address with doctor. Goal 1:: Abolish dizzyness with rolling in bed and bending over. Goal Progress: Goal Met Goal 2:: Pt feel 90% back to normal as before her fall. Goal Progress: Goal Met Goal 3:: DHI< 10% disability Goal Progress: Goal Met Plan: d/c, pt to doctor in 2 weeks Discharge Comments: Pt to doctor and is significantly better with negative vestibular tests. Possibility of orthostatic should be considered for remainding lightheaded symptoms upon standing from bent position. If there are questions or concerns regarding this patient's physical therapy, please feel free to call me at [phone]. Thank you for the referral of this patient. Sincerely, Rodrick Johnson, DPT, OCS, CSCS
== END 2019-12-09 19:00 | disposition home or self-care (01) ==
LOC: PT 10:30
PROVIDERS: PCP Internal Medicine; Referring Provider Psychiatry & Neurology Neurology; Visit Provider Psychiatry & Neurology Neurology
DX: R42 Dizziness and giddiness (principal)
CPT/HCPCS: 97161; 97530

== ENCOUNTER → 2020-03-04 13:44 | Outpatient (CLI) | payer MEDICARE, SELFPAY ==
[2019-12-14 13:39] VITALS: BMI 23.6
--- NOTE | 2020-03-04 13:50 | RAD_ITS ---
STUDY: X-RAY CHEST REASON FOR EXAM: Female, 74 years old. RESIDUAL COUGH S/P POSITIVE COVID TECHNIQUE: PA and lateral views of the chest. COMPARISON: Prior study of 08/12/2019 FINDINGS: There are patchy infiltrates of the left lung. These are new in the interval. There is a small calcified granuloma of the left lingula. There is no demonstrated pleural abnormality. Normal size heart. Normal mediastinum and mitch. Normal visualized pulmonary arteries. There are calcified plaques of the aortic arch. There are diffuse degenerative changes of the visualized thoracic spine. Normal visualized ribs, clavicles, and shoulders. There is no demonstrated abnormality of the visualized soft tissue structures of the upper abdomen. RAD/Chest PA and Lateral IMPRESSION: Patchy infiltrates of the left lung. Small calcified granuloma the left lingular. Calcified plaques of the aortic arch. Diffuse endplate spondylosis of the thoracic spine. Electronically Signed: Sree Brice MD at 17:24 EDT , Service support ,
== END ==
PROVIDERS: PCP Internal Medicine; Referring Provider Internal Medicine; Visit Provider Internal Medicine
DX: R05 Cough (principal)
CPT/HCPCS: 71046

== ENCOUNTER → 2020-04-16 13:09 | Outpatient (CLI) | payer MEDICARE, SELFPAY ==
[2019-12-14 13:39] VITALS: BMI 23.6
--- NOTE | 2020-04-16 13:15 | RAD_ITS ---
STUDY: X-RAY CHEST REASON FOR EXAM: Female, 74 years old. Check up-hx of pneumonia -- covid in her extended family in January TECHNIQUE: PA and lateral views of the chest. COMPARISON: Comparison is made with prior study dated 03/04/2020. FINDINGS: Hyperinflation. Scattered calcified granulomas. The previously seen infiltrate in the posterior medial segment of the left lower lobe has cleared. There is no demonstrated pleural abnormality. Normal size heart. Normal mediastinum and mitch. Normal visualized pulmonary arteries. Normal visualized aortic arch and descending thoracic aorta. There are diffuse degenerative changes of the visualized thoracic spine. Normal visualized ribs, clavicles, and shoulders. There is no demonstrated abnormality of the visualized soft tissue structures of the upper abdomen. RAD/Chest PA and Lateral IMPRESSION: Hyperinflation. The lungs are clear. Electronically Signed: Oli Lynn, at 15:10 EDT , Service support ,
== END ==
PROVIDERS: PCP Internal Medicine; Referring Provider Internal Medicine; Visit Provider Internal Medicine
DX: R05 Cough (principal)
CPT/HCPCS: 71046

== ENCOUNTER 2020-05-07 12:30 | Outpatient (RCR) | payer MEDICARE, SELFPAY ==
[2019-12-14 13:39] VITALS: BMI 23.6
--- NOTE | 2020-01-14 14:15 | HP.PTEVAL ---
Patient's Visit Information PARESH LIVINGSTON is a 74 year old F referred to Physical Therapy by Dr. Magda Ayala DO with a diagnosis of R supraspinatus tendonitis. Date of Evaluation: 01/14/20 Physical Therapist: Rodrick Johnson, DPT, OCS, CSCS - Visit Plan Plan: f/u mid January(pt is having some eye surgeries and does not wish to attend during that time.). Decide on HEP of strength posture adn RC or increase frequency for strength, US coty. - Subjective R shoulder for long time. Having eye surgery Sunday and on February 01. Been hurting months for no reason . R anterior shoulder is intermittent, typically comfortable at rest. Wakes her up at night. Is a side sleeper. Is L handed. Doing hair and putting hands behind her are painful and hard to do. Not improving. Worse in am. Activities are pretty normal. Basic ADLs are getting done. - Pain R shoulder Pain Intensity (Out of 10): 1 Pain Intensity Range: 0, 6 - Objective Walks and trasnfers normal. Full UE AROM but R shoulder hurt at end of ext rotation and elelvation. Tender to touch over R biceps tendon origin adn supraspinatus tendon. - ext rotation lag test. - sulcus test. - drop arm. + HK and neer impingement tests on R. Strength is 4/5 R shoulder with ext rotation pain. Sensation WNL in B UE. reflexes 1/3 bi and tric B. - Goals Goal 1:: Pain 2/10 at highest adn 75% improved. Goal Time Frame: 4-6 Weeks Goal 2:: Pt I approp HEP and actiivity modification to continue progress. Goal Time Frame: 4-6 Weeks Goal 3:: Do hair withotu pain Goal Time Frame: 4-6 Weeks Goal 4:: Sleep without interruption Goal Time Frame: 4-6 Weeks - Rehabilitation Potential Physical Therapy Diagnosis: R supraspinatus tendonitis Rehabilitation Potential: Good - Anticipated Interventions Patient/Client Instruction: Educate patient on: Condition, Plan of Care For the Purpose of:: To decrease pain, To improve muscle performance and motor function, To increase tolerance to activity/condition/position Therapeutic Exercise to Include: Strength training, Postural training, Flexibilty training, Gait and locomotor training, Passive ROM, Active ROM, Scapular Strength/Stabilization For the Purpose of:: To decrease pain, To improve muscle performance and motor function, To improve ability of physical actions for home/community/work/leisure Iontophoresis (with Dexamethozone, with Acetic acid): Yes Cryotherapy (ice pack, ice massage): Yes Ultrasound (thermal/non thermal): Yes For the Purpose of:: To decrease pain, To decrease swelling/inflammation Thank you for the opportunity to evaluate your patient. For Medicare and Medicare HMO plans, please review the plan of care and approve it. It will need to be FAXED BACK to us at [phone] for Medicare purposes. For Medicare only, by signing this I certify the plan of care. Please let me know if there are questions or concerns regarding this plan of care. Physician Signature: Date:
--- NOTE | 2020-03-18 12:57 | HP.PTREVAL ---
Dr. Magda Ayala, DO, It has been my pleasure to treat PARESH LIVINGSTON over the last 2 visits for R supraspinatus tendonitis. Please see the progress note below for an update on the physical therapy plan of care! Subjective: Had covid adn could not make it in last month. Shoulder is not any different. Doing scap exercises. Pain is still 7/10 daily, more with movement Mostly comfortable at rest. Rolling on R wakes her up. Not avoiding any activities with R shoulder, she is L handed. Didn't feel better when she was down for 2 weeks with covid. Has not talked with doctor about shoulder. Objective/Function: Full aROM R shoulder but tender UT and supra muscle belly. Weakness adn painful with ext rotation and scap elevation and end range of elevation and rotations. Pt has not progressed toward goals due to lack of therapy due to covid, Appropriate to continue POC toward goals with fair prognosis. Plan Plan: 5-6 visits around vacation for. 1. US adn MH and STM to R UT and supra muscle belly. 2. strengthen RC adn posture, scap stabs for HEP. 3. EG can check positional vertigo as needed. Goals Goal 1:: Pain 2/10 at highest adn 75% improved. Goal Time Frame: 4-6 Weeks Goal Progress: Not Progressing Goal 2:: Pt I approp HEP and actiivity modification to continue progress. Goal Time Frame: 4-6 Weeks Goal Progress: Not Progressing Goal 3:: Do hair withotu pain Goal Time Frame: 4-6 Weeks Goal Progress: Progressing Goal 4:: Sleep without interruption Goal Time Frame: 4-6 Weeks Goal Progress: Not Progressing Anticipated Interventions Patient/Client Instruction: Educate patient on: Condition, Plan of Care For the Purpose of:: To decrease pain, To improve muscle performance and motor function, To increase tolerance to activity/condition/position Therapeutic Exercise to Include: Strength training, Postural training, Flexibilty training, Gait and locomotor training, Passive ROM, Active ROM, Scapular Strength/Stabilization For the Purpose of:: To decrease pain, To improve muscle performance and motor function, To improve ability of physical actions for home/community/work/leisure Iontophoresis (with Dexamethozone, with Acetic acid): Yes Cryotherapy (ice pack, ice massage): Yes Ultrasound (thermal/non thermal): Yes For the Purpose of:: To decrease pain, To decrease swelling/inflammation Please do not hesitate to contact me at [phone] by phone or if you have questions or concerns regarding this new plan of care! Sincerely, Rodrick Johnson, DPT, OCS, CSCS
--- NOTE | 2020-04-14 14:21 | HP.PTREVAL ---
Dr. Magda Ayala, DO, It has been my pleasure to treat PARESH LIVINGSTON over the last 7 visits for R supraspinatus tendonitis. Please see the progress note below for an update on the physical therapy plan of care! Subjective: Feeling good now and after treatment. Lasts until she does something silly at home like putting out to side or in jacket. Doing band exercises at home and feels better afterward. Sleeping is mostly OK anbut needs tylenol at times. No f/u with Dr. Ayala until 05/06. Objective/Function: Full aROM R shoulder except ext rotation to 65 degree vs 75 L. Has some painful arc in elevationa nd endrange of ext rotation and IR but minimal. Strength is 3= ER, 4- IR, flexiona dn abduction 3+ with some pain ER and elevation resisted. Going the right way and appropriate to cotninue 3 weeks with fair prognosis. Plan Plan: 2x/week for 3 weeks to progress to gym based UE strength, RC strength and work toward I with list. Use US/mobs as needed. Goals Goal 1:: Pain 2/10 at highest adn 75% improved. Goal Time Frame: 4-6 Weeks Goal Progress: Progressing Goal 2:: Pt I approp HEP and actiivity modification to continue progress. Goal Time Frame: 4-6 Weeks Goal Progress: Progressing Goal 3:: Do hair withotu pain Goal Time Frame: 4-6 Weeks Goal Progress: Progressing Goal 4:: Sleep without interruption Goal Time Frame: 4-6 Weeks Goal Progress: Not Progressing Goal 5:: I approp gym ex to minimize future problems. Goal Time Frame: 2-4 Weeks Goal Progress: NEW GOAL. Anticipated Interventions Patient/Client Instruction: Educate patient on: Condition, Plan of Care For the Purpose of:: To decrease pain, To improve muscle performance and motor function, To increase tolerance to activity/condition/position Therapeutic Exercise to Include: Strength training, Postural training, Flexibilty training, Gait and locomotor training, Passive ROM, Active ROM, Scapular Strength/Stabilization For the Purpose of:: To decrease pain, To improve muscle performance and motor function, To improve ability of physical actions for home/community/work/leisure Iontophoresis (with Dexamethozone, with Acetic acid): Yes Cryotherapy (ice pack, ice massage): Yes Ultrasound (thermal/non thermal): Yes For the Purpose of:: To decrease pain, To decrease swelling/inflammation Please do not hesitate to contact me at [phone] by phone or if you have questions or concerns regarding this new plan of care! Sincerely, Rodrick Johnson, DPT, OCS, CSCS
--- NOTE | 2020-05-07 12:49 | HP.PTDCSUM ---
It has been my pleasure to treat PARESH LIVINGSTON referred by Dr. Magda Ayala DO, with the diagnosis of R supraspinatus tendonitis for a total of 13 visit(s). Discharge Date: 05/07/20 Please see the following information for a summary of their discharge status. Subjective: Better. X ray showed OA. This week has had some pain. Woke up 2 nights ago but last night was good. No different activites. Doing band exercises 3x10 blue band. Activities pretty normal. Pain is intermittent depending on the day. To doctor sometime soon. R shoulder Pain Intensity (Out of 10): 6 % Improvement: 65 Objective/Function: 4/5 B shoulder strength with only some slight ext rotation discomfort. Elevation ROM is excellent and symmetrical. Much better overall and willing to manage with home/gym exercises. Goal 1:: Pain 2/10 at highest adn 75% improved. Goal Progress: Progressing Goal 2:: Pt I approp HEP and actiivity modification to continue progress. Goal Progress: Progressing Goal 3:: Do hair withotu pain Goal Progress: at times Goal 4:: Sleep without interruption Goal Progress: inconsistently Goal 5:: I approp gym ex to minimize future problems. Goal Progress: Goal Met Plan: d/c to HEP If there are questions or concerns regarding this patient's physical therapy, please feel free to call me at [phone]. Thank you for the referral of this patient. Sincerely, Rodrick Johnson, DPT, OCS, CSCS
== END 2020-05-07 19:00 | disposition home or self-care (01) ==
LOC: PT 12:30
PROVIDERS: PCP Internal Medicine; Referring Provider Internal Medicine; Visit Provider Internal Medicine
DX: M25.811 Other specified joint disorders, right shoulder (principal); M75.81 Other shoulder lesions, right shoulder
CPT/HCPCS: 97035; 97110; 97140; 97161; 97164; 97530

== ENCOUNTER → 2020-06-02 10:13 | Outpatient (CLI) | payer MEDICARE, SELFPAY ==
[2019-12-14 13:39] VITALS: BMI 23.6
--- NOTE | 2020-06-02 10:14 | BI_ITS ---
MAMMOGRAPHY - BILATERAL SCREENING REASON FOR EXAM: Female, 75 years old. Routine annual screening examination. PERTINENT HISTORY: Mother with breast cancer. History of prior bilateral breast reduction surgery. TECHNIQUE: Digital bilateral breast mikel (3D mammographic acquisition) in the CC and MLO projections. 2-D mediolateral oblique (MLO) and craniocaudad (CC) views of both breasts were obtained. CAD: Full Field Digital Mammography with Computer Added Detection was performed. COMPARISON: Comparison is made with prior study dated 05/16/2019 and 05/14/2018. FINDINGS: Breast Composition: The breasts are heterogeneously dense, which may obscure small masses. There are no dominant masses or suspicious calcifications. Stable scattered microcalcifications in both breasts more prominent on the left side. Stable benign-appearing axillary lymph nodes. No other significant abnormalities are identified. There has been no significant change since the prior study. BI/SCREEN MAMM (CAD) W/MIKEL BILAT IMPRESSION: Stable bilateral screening mammogram. Yearly follow-up mammogram recommended. (A) ASSESSMENT CATEGORY: BIRADS Category 2: Benign. A letter regarding these results will be sent to the patient by the facility within 30 days. Approximately 10% of breast cancers are not detected by mammography. A normal mammogram should not delay biopsy of a clinically suspicious abnormality. [id number] Electronically Signed: Oli Lynn, at 11:40 EST , Service support ,
--- NOTE | 2020-06-02 10:23 | BD_ITS ---
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 COMPARISON: Comparison is made with prior study dated 09/16/2013. FINDINGS: Lumbar Spine (L1-L4): g/cm2 (2.001) / T-score (6.8) / Z-score (8.6) Findings are suggestive of normal bone density with a low fracture risk. Left Femur Total: g/cm2 (1.102) / T-score (0.7) / Z-score (2.6) Left Femoral Neck: g/cm2 (1.064) / T-score (0.2) / Z-score (2.2) Right Femur Total: g/cm2 (1.114) / T-score (0.8) / Z-score (2.7) Right Femoral Neck: g/cm2 (1.032) / T-score (0.0) / Z-score (2.0) The T-Scores on the most recent prior examination were: Lumbar Spine (L1-L4): There has been improvement of bone density since the previous examination. Left Femur Total: which represents an improvement of 0.9%. Right Femur Total: which represents an improvement of 0.5%. BD/Dexa Bone Density Study IMPRESSION: The patient is considered normal as outlined below according to World Ino Organization (WHO) criteria with a low fracture risk. There has been improvement of bone density since the previous examination. Reference Information: The T-score is the number of standard deviations above or below the standard which is normal for young adults at their peak bone mineral density. The World Health Organization (WHO) interprets the T-scores as follows: Above -1 Normal bone density Between -1 and -2.5 Osteopenia Equal to / or below -2.5 Osteoporosis As a practical clinical guideline, osteopenia may be graded as follows: Mild -1 through -1.5 Moderate -1.6 through -2.0 Severe -2.1 through -2.4 The Z-score is the number of standard deviations above or below age-matched controls. A Z-score of less than -1.5 would be considered abnormal. References: 1. NIH Osteoporosis and Related Bone Diseases www osteo.org 2. International Society for Clinical Densitometry www iscd.org 3. National Osteoporosis Foundation www nof.org Electronically Signed: Oli Lynn, at 14:15 EST , Service support ,
== END ==
PROVIDERS: PCP Internal Medicine; Referring Provider Internal Medicine; Visit Provider Internal Medicine
DX: Z78.0 Asymptomatic menopausal state (principal); Z12.31 Encounter for screening mammogram for malignant neoplasm of breast; Z80.3 Family history of malignant neoplasm of breast
CPT/HCPCS: 77063; 77067; 77080

== ENCOUNTER → 2022-06-22 | Outpatient (CLI) | payer MEDICARE, SELFPAY ==
--- NOTE | 2022-06-22 15:15 | BI_ITS ---
MAMMOGRAPHY - BILATERAL SCREENING REASON FOR EXAM: Female, 77 years old. Routine annual screening examination. PERTINENT HISTORY: Mother with breast cancer. History of remote bilateral breast reduction surgery. TECHNIQUE: Digital bilateral breast mikel (3D mammographic acquisition) in the CC and MLO projections. 2-D mediolateral oblique (MLO) and craniocaudad (CC) views of both breasts were obtained. CAD: Full Field Digital Mammography with Computer Added Detection was performed. COMPARISON: Comparison is made with prior study dated 06/02/2020 and 05/16/2019. FINDINGS: Breast Composition: The breasts are heterogeneously dense, which may obscure small masses. Since prior study, there has been an increase in the linear calcifications in the retroareolar region of the left breast. A biopsy is recommended. Stable small benign-appearing lateral axillary lymph nodes. No other significant abnormalities are identified. BI/SCRN MAMM (CAD)W/MIKEL BILAT IMPRESSION: Interval increase in number of the linear calcifications in the retroareolar region of the left breast. Biopsy recommended. ASSESSMENT CATEGORY: BIRADS Category 4: Suspicious - Biopsy Should Be Considered. A letter regarding these results will be sent to the patient by the facility within 30 days. Approximately 10% of breast cancers are not detected by mammography. A normal mammogram should not delay biopsy of a clinically suspicious abnormality. [id number] Electronically Signed: Oli Lynn MD at 8:36 EST ,
--- NOTE | 2022-06-22 15:20 | BD_ITS ---
STUDY: DUAL ENERGY X-RAY ABSORPTIOMETRY / DXA REASON FOR EXAM: Female, 77 years old. [id number] TECHNIQUE: Bone Mineral Density (BMD) measurements of lumbar spine and bilateral hips were obtained. COMPARISON: Comparison is made with prior study dated 06/02/2020. FINDINGS: Lumbar Spine (L1-L4): g/cm2 (1.655) / T-score (5.5) / Z-score (8.2) Findings are suggestive of normal bone density with a low fracture risk. Left Femur Total: g/cm2 (1.044) / T-score (0.8) / Z-score (2.8) Left Femoral Neck: g/cm2 (0.887) / T-score (0.3) / Z-score (2.6) Right Femur Total: g/cm2 (1.040) / T-score (0.8) / Z-score (2.8) Right Femoral Neck: g/cm2 (0.873) / T-score (0.2) / Z-score (2.5) The T-Scores on the most recent prior examination were: Lumbar Spine (L1-L4): There has been worsening of bone density since the previous examination. Left Femur Total: which represents an improvement of 1.1%. Right Femur Total: which represents a worsening of 0.5%. BD/Dexa Bone Density Study IMPRESSION: The patient is considered normal as outlined below according to World Ino Organization (WHO) criteria with a low fracture risk. There has been worsening of bone density since the previous examination. Reference Information: The T-score is the number of standard deviations above or below the standard which is normal for young adults at their peak bone mineral density. The World Health Organization (WHO) interprets the T-scores as follows: Above -1 Normal bone density Between -1 and -2.5 Osteopenia Equal to / or below -2.5 Osteoporosis As a practical clinical guideline, osteopenia may be graded as follows: Mild -1 through -1.5 Moderate -1.6 through -2.0 Severe -2.1 through -2.4 The Z-score is the number of standard deviations above or below age-matched controls. A Z-score of less than -1.5 would be considered abnormal. References: 1. NIH Osteoporosis and Related Bone Diseases www osteo.org 2. International Society for Clinical Densitometry www iscd.org 3. National Osteoporosis Foundation www nof.org Electronically Signed: Oli Lynn MD at 10:00 EST ,
== END | disposition home or self-care (01) ==
LOC: OPBD 15:10
PROVIDERS: PCP Internal Medicine; Visit Provider Internal Medicine
DX: Z12.31 Encounter for screening mammogram for malignant neoplasm of breast (principal); Z78.0 Asymptomatic menopausal state
CPT/HCPCS: 77063; 77067; 77080

== ENCOUNTER → 2022-07-11 | Outpatient (CLI) | payer MEDICARE, SELFPAY ==
--- NOTE | 2022-07-11 10:53 | PCM.HP.BLA ---
History and Physical Date of Admission: 07/11/22 Visit Reasons:?LEFT BIRADS 4 Chief Complaint: left birads 4 Allergies amoxicillin [Amoxicillin] Allergy (Verified 07/05/22 15:55) Swellingazithromycin [From Zithromax] Allergy (Verified 07/05/22 15:55) RashPenicillins Allergy (Verified 07/05/22 15:55) HivesSulfa (Sulfonamide Antibiotics) Allergy (Verified 07/05/22 15:55) Angioedemasulfamethoxazole [From Septra] Allergy (Verified 07/05/22 15:55) Rashtriamcinolone acetonide [From Nasacort AQ] Allergy (Verified 07/05/22 15:55) Rashtrimethoprim [From Septra] Allergy (Verified 07/05/22 15:55) Rashcodeine Adverse Reaction (Verified 07/05/22 15:55) Vomitingnitrofurantoin [From Macrobid] Adverse Reaction (Verified 07/05/22 15:55) Upset Stomach Medications apixaban 2.5 mg tablet 2.5 mg PO BID blood thinner 06/15/19 [History Confirmed 07/05/22] zolpidem 10 mg tablet 10 mg PO QHS PRN PRN Insomnia 06/15/19 [History Confirmed 07/05/22] albuterol sulfate 90 mcg/actuation aerosol inhaler 1 puff inhalation Q6H PRN PRN Sob &/Or Wheezing 07/01/19 [History Confirmed 07/05/22] atorvastatin 20 mg tablet 20 mg PO QHS 07/01/19 [History Confirmed 07/05/22] citalopram 20 mg tablet 10 mg PO QHS 07/01/19 [History Confirmed 07/05/22] dextromethorphan-guaifenesin 10 mg-100 mg/5 mL oral syrup 10 ml PO Q6H PRN PRN Cough 07/01/19 [History Confirmed 07/05/22] Oxygen, Home [Home Oxygen] 2 lpm CONT #1 unit 07/06/19 [Rx Confirmed 07/05/22] cefadroxil 500 mg capsule 1,000 mg PO BID #20 caps 07/06/19 [Rx Confirmed 07/05/22] lisinopril 40 mg tablet 40 mg PO DAILY #30 tabs 07/06/19 [Rx Confirmed 07/05/22] hydrocortisone 2.5 % topical cream 1 applic topical BID PRN rash #30 grams 12/14/19 [Rx Confirmed 07/05/22] omega 3-mxn-bej-fish oil 300 mg-1,000 mg capsule (Fish Oil) 1 cap PO DAILY 07/05/22 [History Confirmed 07/05/22] PFSH Medical History?(Updated 07/05/22 @ 05:[address] Wayne Nogueira MD) Diarrhea Difficulty balancing HTN (hypertension) Hx of concussion Loss of consciousness Surgical History? H/O arthroscopy of left knee Family History?(Updated 07/05/22 @ 15:53 by Peggy Rosas) Mother Breast cancer Social History? Smoking Status:? Never smoker alcohol intake:? current alcohol intake frequency: holidays/special occasions only HPI HPI HPI: 77-year-old female.? She is being referred by Dr. Magda Ayala for surgical consultation regarding mammographic imaging and a written copy my surgical consult recommendations will return to her.? On June 22, 2022 the patient had routine screening mammography.? The patient has a personal history of remote bilateral breast reduction surgery and a history of breast cancer in her mother.? The screening mammograms suggest that there is an increase in linear calcifications seen in the retroareolar left breast.? Small stable left axillary lymph nodes identified.? BI-RADS Category 4.? Biopsy recommended.? Reviewing previous images her films prior that were June 02, 2020.? That demonstrates microcalcifications in both breasts more prominent on the left at that time.? The patient had films on May 16, 2019 demonstrating again bilateral breast calcifications more prominent on the left.? The lymph nodes were noted that time and were felt to be unremarkable.? Her previous films May 14, 2018 continue to remark about the bilateral breast calcifications and the bilateral axillary adenopathy.? As far as I can go back September 16, 2013 there are remarks regarding bilateral breast calcifications.? That set of films states they compared to October 17, 2010 and June 29, 2009 and were felt to be stable going back all of that time. 77-year-old female.? A0.? Menarche was at age 12.? First child was born when she was 18.? She did not breast-feed.? No history of previous breast biopsies.? Not on any estrogen replacement.? Family history notable for mother had breast cancer approximate age 57.? The patient had breast reduction surgery June 2007. She did not have any difficulties with deep venous thrombosis during her breast reduction surgery however approximately 2008 she had ischemic colitis twice and left lower extremity DVT.? She was evaluated by Dr. Yu and was detected as having factor V Leiden deficiency and IgM anticardiolipin.? For that reason she has been on Eliquis therapy and she also takes fish oil.? She has not had a recent DVT. ROS General General: No weight change, appetite, fatigue, colon cancer or breast cancer HEENT HEENT: Yes eye surgery; No difficulty swallowing, eye injury, swollen glands or hoarseness Endo Endocrine: No thyroid disease, diabetes mellitus, thyroid cancer, Hair loss, heat intolerance or cold intolerance Skin Skin: No rash or changing moles Breast Breast: Yes abnormal US; No left breast lump, right breast lump, nipple discharge, breast pain, abnormal mammogram or breast enlargement Musc Musculoskeletal: Yes back problems and arthritis; No rheumatoid arthritis, gout or joint pain Cardio Cardiovascular: Yes high blood pressure; No murmur, pacemaker, heart disease, atrial fibrillation, heart attack, heart stent, palpitations, shortness of breat with exertion or chest pain Psych Psychiatric: Yes anxiety; No depression or hearing voices Resp Respiratory: No shortness of breath, No sleep apnea, No cough, No COPD, No asthma, No emphysema and No wheezing Gastro Gastrointestinal: No abdominal pain, No nausea or vomiting, No diarrhea, No constipation, No blood in stool, No acid reflux, No hemorrhoids, No ulcers, No gallbladder problem and No black,tarry stools Balwinder Hematologic: Yes blood thinners and Yes blood clots Additional Details: factor V Exam Const General: cooperative, healthy appearing, comfortable and no acute distress Chest Other: Bilateral breasts demonstrate evidence of breast reduction incisions.? There are some scarring lower inner left breast incision.? Mild diffuse fibrous change throughout each side.? No focally concerning mass.? No nipple discharge.? No axillary or clavicular adenopathy. Assessment and Plan Assessment and Plan (1) Abnormal mammogram of left breast: ?Status:?Acute ?Plan: Increasing linear calcifications retroareolar left breast.? She has had similar calcifications for multiple years.? They have increased in number.? I have offered her a stereotactic needle core biopsy of a focal area of calcifications and the patient is well aware that secondary to the diffuse nature of this process that all of the calcifications will not be removed but that this is a sampling technique.? We will have her immediately hold her fish oil.? We will have her hold her Eliquis 2 days preintervention.? I have discussed the technique, benefit, risk, alternatives.? She has had an opportunity to ask and have questions answered.? At this point I am suspicious that this could be a process related to her previous bilateral breast reduction surgery since she had that in 2006 and since we have evidence of these calcifications dating all the way back to 2008.? Biopsy however still indicated. I appreciate the opportunity of assisting with the surgical care. Copy: Dr. Magda Nogueira M.D., F.A.C.S. ? ? ? Medications: Discontinued amlodipine ?? Discontinued Reason:? Pt no longer taking 5 mg? PO DAILY 30 tabs 0RF ? ? Coding Level of Care Code 53956 Diagnoses Abnormal mammogram of left breast? R92.8 I have examined the patient and the H&P has been reviewed. There are no clinical changes since date of exam. Wayne Nogueira M.D., F.A.C.S.
--- NOTE | 2022-07-11 11:13 | PCM.OPRPT ---
Report of Operation Date of Procedure: 07/11/22 Pre-Operative Diagnosis: Linear calcifications retroareolar left breast Post-Operative Diagnosis: Same Surgery/Procedure Performed:: Stereotactic needle core biopsy retroareolar left breast Description of Surgical Findings:: Timeout informed consent was obtained. 77-year-old female was taken to the mammography suite placed prone the table the left breast was placed in a medial lateral view abundant scattered calcifications in a linear fashion were identified stereotactic images were obtained digital information was taken on a single target site I did replace image 1. Breast was prepped with Betadine 1% lidocaine was used as a local anesthetic a total of 10 cc was used small stab incision was created an 8 gauge resolved needle was advanced to prefire depth prefire films were obtained demonstrating adequate localization the device was fired 6 cores were obtained specimen analysis demonstrated 3 of the cores with calcifications I decided to take 6 more cores the additional 6 cores however did not have further microcalcifications a marking clip was left at 12 o'clock position she was released from the device and pressure held for hemostasis she did have some oozing at the completion of the procedure but this was well contained with pressure The specimens were immediately transferred to formalin. Steri-Strip Telfa OpSite dressing applied followed by ice pack. She was given activity and wound care instructions. She will be notified of pathology results as soon as they are available. Specimens: Cores of breast. Drains none. Blood loss 5 cc Wayne Nogueira M.D., F.A.C.S. Surgeon: Wayne Nogueira Type of Anesthesia: Local
--- NOTE | 2022-07-11 11:15 | BRBX_PTH ---
PATIENT: PARESH LIVINGSTON LOC: [facility] U#:[id number] AGE/SX: 77/F ROOM: RE07/11/[address]: Dr. Wayne Nogueira MD : 1945 BED: DIS: 07/11/2022 SPEC #: [id number] RECD: 07/11/22 11:51 STATUS: RAMÓN REQ #: [id number] KELLEN: 07/11/22 11:[address]: Wayne Nogueira DEPT: SURGICAL PATHOLOGY RECD BY: Liseth Drew ENTERED: 07/11/22 13:04 SP TYPE: BREAST BX OTHR DR: Dr. Magda Ayala DO Tissues: Left breast, NOS Procedures: Surgery Specimen Level IV HEADER OPERATION: Left breast stereotactic biopsy PRE-OP DIAGNOSIS: Left breast retroareolar calcifications TISSUE SUBMITTED: Left breast core tissue ISCHEMIC TIME: 2 minutes FIXATION TIME: 8.5 hours MICROSCOPIC DIAGNOSIS Left breast, stereotactic core biopsy: Mild duct ectasia. Radhaal microcalcifications, focal. No evidence of malignancy. AM:rambo 07/12/2022 MICROSCOPIC DESCRIPTION Slides are reviewed. GROSS DESCRIPTION Received in fixative is one container labeled with the patient's name and designated left breast. The specimen consists of multiple elongated fragments of bueno-yellow fibroadipose tissue that in aggregate measure 5 x 3 x 0.6 cm. The entire specimen is submitted in four cassettes. / SJ:rambo 07/11/2022 TC:5 CPT: 00038
== END | disposition home or self-care (01) ==
LOC: BIRAD 10:25
PROVIDERS: PCP Internal Medicine; Visit Provider Surgery
DX: N60.42 Mammary duct ectasia of left breast (principal); R92.8 Other abnormal and inconclusive findings on diagnostic imaging of breast
CPT/HCPCS: 19081; 88305; J7050

== ENCOUNTER → 2022-08-28 | Outpatient (CLI) | payer MEDICARE, SELFPAY ==
[2022-08-28 14:15] LABS: BNP,B-Type NATRIURETIC PEPTIDE 35.5 pg/mL (0-100)
== END | disposition home or self-care (01) ==
LOC: LAB 13:07
PROVIDERS: PCP Internal Medicine; Visit Provider Internal Medicine Pulmonary Disease
DX: R06.02 Shortness of breath (principal)
CPT/HCPCS: 36415; 83880

== ENCOUNTER → 2022-09-06 | Outpatient (CLI) | payer MEDICARE, SELFPAY ==
--- NOTE | 2022-09-06 13:19 | CT_ITS ---
STUDY: CT CHEST WITHOUT CONTRAST REASON FOR EXAM: Female, 77 years old. SOB/PAH RADIATION DOSAGE (If Supplied By Facility): CTDIvol = ( 6.12 ) mGy, DLP = ( 203.59 ) mGycm TECHNIQUE: Transaxial imaging was performed without the administration of intravenous contrast material. Multiplanar coronal and sagittal images were reformatted. Individualized dose optimization techniques were used for this CT. COMPARISON: Comparison is made with prior study 03/19/2015. FINDINGS: CHEST Calcified granuloma in the posterior aspect of the lingular segment of the left upper lobe. Stable 3.8 mm noncalcified nodule in the peripheral lateral aspect of the right upper lobe as seen on axial image #26. Stable 4.5 mm noncalcified nodule in the lateral aspect of the right upper lobe posteriorly. There is no demonstrated pleural abnormality. There are calcifications of the coronary arteries. There are multiple small lymph nodes within the mediastinum, which are normal in size and morphology most compatible with reactive lymph hyperplasia. Normal hilar regions. Normal unenhanced pulmonary arteries. There is atherosclerotic calcification of the aortic arch with tortuosity and elongation of the aortic arch and descending thoracic aorta. There are multi-level degenerative changes of the thoracic spine. The patient is status post cholecystectomy. Diffuse atrophy of the pancreas. Stable calcified splenic artery aneurysms. CT/Chest without Contrast IMPRESSION: Stable examination. Electronically Signed: Oli Lynn MD at 15:02 EST ,
== END | disposition home or self-care (01) ==
LOC: CT 13:17
PROVIDERS: PCP Internal Medicine; Referring Provider Internal Medicine Pulmonary Disease; Visit Provider Internal Medicine Pulmonary Disease
DX: R06.02 Shortness of breath (principal)
CPT/HCPCS: 71250

== ENCOUNTER → 2023-01-22 | Outpatient (CLI) | payer MEDICARE, SELFPAY ==
--- NOTE | 2023-01-22 09:47 | ECHOCS_ITS ---
Reason For Study: PHTN Procedure This was a 2D Doppler, Color Flow transthoracic echocardiogram. The study was technically difficult. Contrast injection was performed. Exam performed in department. Left Ventricle Normal LV size. The estimated ejection fraction is 65 %. Normal diastology for age. No regional wall motion abnormalities noted. Right Ventricle Normal RV size. Normal systolic function. Atria Normal left atrium. Normal right atrium. No doppler evidence for ASD. Mitral Valve There is no mitral valve stenosis. No mitral valve insufficiency. Tricuspid Valve There is no tricuspid stenosis. Trivial tricuspid valve insufficiency. Pulmonary artery systolic pressure is 45 mmHg. Aortic Valve Trisinus/trileaflet aortic valve. There is no aortic stenosis. Trivial aortic valve insufficiency. Pulmonic Valve There is no pulmonic valvular stenosis. Trivial pulmonic valve insufficiency. Great Vessels Normal aortic root. Pericardium/Pleural No pericardial effusion. Medication 22 gauge I.V. with prn adaptor inserted into left arm. Diluted definity 1.5ml given slow IV push to enhance endocardial definition. MMode/2D Measurements & Calculations LVIDd: 4.5 cm IVSd: 1.0 cm Ao root diam: 2.8 cm LVIDs: 2.9 cm LVPWd: 1.2 cm RVDd: 2.8 cm FS: 35.9 % LAV(MOD-bp): 48.9 ml LVAd ap4: 28.0 cm2 SV(MOD-sp4): 59.4 ml LAV(MOD-bp) Indexed: 25.8 ml/m2 LVLd ap4: 7.2 cm LAV(MOD-sp2): 44.4 ml EDV(MOD-sp4): 88.8 ml LAV(MOD-sp4): 49.2 ml EDV(sp4-el): 92.5 ml LVAs ap4: 14.4 cm2 LVLs ap4: 5.8 cm ESV(MOD-sp4): 29.4 ml ESV(sp4-el): 30.3 ml EF(MOD-sp4): 66.9 % EF(sp4-el): 67.3 % SV(sp4-el): 62.2 ml LA A4 area: 18.9 cm2 LA dimension(2D): 3.7 cm RA A4 area: 12.2 cm2 Time Measurements MV dec time: 0.11 sec Doppler Measurements & Calculations MV E max valente: 92.9 cm/sec Med Peak E' Valente: 10.6 cm/sec MV V2 max: 111.1 cm/sec MV A max valente: 78.7 cm/sec E/E' med: 8.8 MV max P.9 mmHg MV E/A: 1.2 MV V2 mean: 59.9 cm/sec MV mean P.7 mmHg MV V2 VTI: 36.5 cm MV dec slope: 1042 cm/sec2 Ao V2 max: 125.7 cm/sec AI max valente: 449.7 cm/sec Ao max P.3 mmHg AI max P.9 mmHg Ao V2 mean: 85.5 cm/sec AI dec slope: 226.8 cm/sec2 Ao mean P.3 mmHg AI P1/2t: 580.7 msec Ao V2 VTI: 32.6 cm AV (velocity ratio): 0.67 LV V1 max: 66.9 cm/sec PA V2 max: 91.1 cm/sec TR max valente: 311.9 cm/sec LV V1 max P.2 mmHg PA V2 mean: 66.7 cm/sec TR max P.9 mmHg LV V1 mean P.7 mmHg LV V1 mean: 61.9 cm/sec LV V1 VTI: 21.8 cm ECHO/Echo Complete W/ Contrast Interpretation Summary The estimated ejection fraction is 65 %. Trivial aortic valve insufficiency. Ordering Physician: Magda Ayala Referring Physician: Magda Ayala Performed By: Annalise Gagnon RCS
== END | disposition home or self-care (01) ==
LOC: CVS 09:39
PROVIDERS: PCP Internal Medicine; Referring Provider Internal Medicine; Visit Provider Internal Medicine
DX: I27.20 Pulmonary hypertension, unspecified (principal)
CPT/HCPCS: 93306; Q9957; A4216; C8929

== ENCOUNTER → 2023-05-16 | Outpatient (CLI) | payer MEDICARE, SELFPAY ==
--- NOTE | 2023-05-16 12:57 | ECHOD_ITS ---
Reason For Study: PHTN Procedure This was a 2D Doppler, Color Flow transthoracic echocardiogram. The study was technically difficult. Exam performed in department. Left Ventricle Normal size and thickness. The left ventricular ejection fraction is 65 %. Diastolic function is indeterminate. Right Ventricle Normal right ventricle. Atria The left and right atria are normal. Mitral Valve Trivial mitral valve insufficiency. Tricuspid Valve Mild tricuspid valve insufficiency. Right ventricular systolic pressure estimated to be 44 mmHg. Aortic Valve Trisinus/trileaflet aortic valve. Mild (1+) aortic valve insufficiency. Pulmonic Valve The pulmonic valve is not well visualized. Trivial pulmonic valve insufficiency. Great Vessels Normal sized aortic root. Pericardium/Pleural No pericardial effusion. MMode/2D Measurements & Calculations LVIDd: 4.4 cm IVSd: 0.82 cm LVOT diam: 1.8 cm LVIDs: 2.4 cm LVPWd: 0.94 cm LVOT area: 2.6 cm2 RVDd: 3.2 cm FS: 46.0 % Ao root diam: 2.7 cm LAV(MOD-bp): 37.8 ml LVAd ap4: 17.6 cm2 LAV(MOD-bp) Indexed: 19.8 ml/m2 LVLd ap4: 6.3 cm LAV(MOD-sp2): 44.5 ml EDV(MOD-sp4): 41.2 ml LAV(MOD-sp4): 32.2 ml EDV(sp4-el): 41.8 ml LVAs ap4: 8.9 cm2 LVLs ap4: 5.3 cm ESV(MOD-sp4): 12.9 ml ESV(sp4-el): 12.5 ml EF(MOD-sp4): 68.7 % EF(sp4-el): 70.0 % LVAd ap2: 18.2 cm2 SV(MOD-sp4): 28.3 ml SV(MOD-sp2): 33.4 ml LVLd ap2: 6.1 cm EDV(MOD-sp2): 45.7 ml EDV(sp2-el): 46.1 ml LVAs ap2: 8.7 cm2 LVLs ap2: 5.2 cm ESV(MOD-sp2): 12.3 ml ESV(sp2-el): 12.3 ml EF(MOD-sp2): 73.1 % SV(sp4-el): 29.2 ml LA dimension(2D): 3.7 cm LA A4 area: 14.2 cm2 RA A4 area: 12.1 cm2 TAPSE: 2.2 cm Time Measurements MV dec time: 0.19 sec Doppler Measurements & Calculations MV E max valente: 101.0 cm/sec Lat Peak E' Valente: 10.2 cm/sec Med Peak E' Valente: 7.4 cm/sec MV A max valente: 79.1 cm/sec E/E' lat: 9.9 E/E' med: 13.7 MV E/A: 1.3 Ao V2 max: 116.8 cm/sec AI max valente: 317.4 cm/sec MV dec slope: 541.1 cm/sec2 Ao max P.5 mmHg AI max P.3 mmHg Ao V2 mean: 78.4 cm/sec Ao mean P.8 mmHg AI dec slope: 139.8 cm/sec2 Ao V2 VTI: 28.9 cm AI P1/2t: 664.9 msec AV (velocity ratio): 0.76 YENIFER(I,D): 2.0 cm2 YENIFER(V,D): 2.0 cm2 LV V1 max: 93.6 cm/sec SV(LVOT): 56.5 ml PA V2 max: 102.7 cm/sec LV V1 max P.5 mmHg PA max PG (full): 2.2 mmHg LV V1 mean P.9 mmHg LV V1 mean: 65.3 cm/sec LV V1 VTI: 22.1 cm PI end-d valente: 94.8 cm/sec TR max valente: 314.1 cm/sec TR max P.5 mmHg RVSP(TR): 42.5 mmHg ECHO/Echo Complete Interpretation Summary The left ventricular ejection fraction is 65 %. Diastolic function is indeterminate. Mild tricuspid valve insufficiency. Right ventricular systolic pressure estimated to be 44 mmHg. Mild (1+) aortic valve insufficiency. The study was technically difficult. Ordering Physician: Magda Ayala Referring Physician: Magda Ayala Performed By: Tianna Rogers RDCS
== END | disposition home or self-care (01) ==
LOC: CVS 12:56
PROVIDERS: PCP Internal Medicine; Referring Provider Internal Medicine; Visit Provider Internal Medicine
DX: I27.20 Pulmonary hypertension, unspecified (principal)
CPT/HCPCS: 93306

== ENCOUNTER 2023-06-22 10:34 | Emergency (ER) | payer MEDICARE, SELFPAY ==
[2023-06-22 10:36] VITALS: BP 240/91; PULSE 70; RESP 18; TEMP 36.8; O2SAT 100; BMI 27.6
--- NOTE | 2023-06-22 11:03 | ED.VIS.LOWEX ---
HPI History of Present Illness HPI Narrative: Left ankle pain for about a week. Denies any fall injury or trauma. Prior history of pain. No prior ankle surgery. Has had prior meniscal scope of her left knee but that was years ago. Denies any fever. No redness. No swelling. No trauma. Chief Complaint: Lower Extremity Injury Informant: patient Occured/Mechanism Mechanism/Context: No injury and No blunt trauma Onset/Context/Timing Onset: Days Context: Gradual Onset Timing: Continuous Quality of Pain: Dull and Aching Current Severity: Mild Maximum Severity: Mild Associated Symptoms Associated Symptoms: Negative for Parasthesia, Weakness or Loss of Funtion Narrative Narrative: 78-year-old female complaining of atraumatic ankle pain for about a week. Saw her primary care physician's office the nurse practitioner for Dr. Nita Vasquez at [facility]. She gave her a shot of steroid and put her on a muscle relaxant. Patient states initially it felt better and now it is aching again. No history of gout. No redness or swelling. No fever or trauma. Prior similar symptoms: Yes Recent Illness/Hospitalization: No PFSH [facility] Medical History (Updated 06/22/23 @ 12:[address] Damon Roca MD) Diarrhea Difficulty balancing HTN (hypertension) Hx of concussion Loss of consciousness Home Medications apixaban 2.5 mg tablet 2.5 mg PO BID blood thinner 06/15/19 [History Last Taken 07/01/19] zolpidem 10 mg tablet 10 mg PO QHS PRN PRN Insomnia 06/15/19 [History Last Taken Unknown] albuterol sulfate 90 mcg/actuation aerosol inhaler 1 puff inhalation Q6H PRN PRN Sob &/Or Wheezing 07/01/19 [History Last Taken 07/01/19] atorvastatin 20 mg tablet 20 mg PO QHS 07/01/19 [History Last Taken 06/30/19] citalopram 20 mg tablet 10 mg PO QHS 07/01/19 [History Last Taken 06/30/19] dextromethorphan-guaifenesin 10 mg-100 mg/5 mL oral syrup 10 ml PO Q6H PRN PRN Cough 07/01/19 [History Last Taken 07/01/19] Oxygen, Home [Home Oxygen] 2 lpm CONT #1 unit 07/06/19 [Rx Last Taken Unknown] cefadroxil 500 mg capsule 1,000 mg (2 x 500 mg) PO BID #20 caps 07/06/19 [Rx Last Taken Unknown] lisinopril 40 mg tablet 40 mg PO DAILY #30 tabs 07/06/19 [Rx Last Taken Unknown] hydrocortisone 2.5 % topical cream 1 applic topical BID PRN rash #30 grams 12/14/19 [Rx Last Taken Unknown] omega 1-qpf-uoj-fish oil 300 mg-1,000 mg capsule (Fish Oil) 1 cap PO DAILY 07/05/22 [History Last Taken Unknown] hydrocodone 5 mg-acetaminophen 300 mg tablet 1 tab PO Q4H PRN pain 7 days #20 tabs 06/22/23 [Rx Last Taken Unknown] Allergy/AdvReac Type Severity Reaction Status Date / Time amoxicillin [Amoxicillin] Allergy Swelling Verified 06/22/23 10:35 azithromycin [From Zithromax] Allergy Rash Verified 06/22/23 10:35 Penicillins Allergy Hives Verified 06/22/23 10:35 Sulfa (Sulfonamide Allergy Angioedema Verified 06/22/23 10:35 Antibiotics) sulfamethoxazole Allergy Rash Verified 06/22/23 10:35 [From Septra] triamcinolone acetonide Allergy Rash Verified 06/22/23 10:35 [From Nasacort AQ] trimethoprim [From Septra] Allergy Rash Verified 06/22/23 10:35 codeine AdvReac Vomiting Verified 06/22/23 10:35 nitrofurantoin AdvReac Upset Verified 06/22/23 10:35 [From Macrobid] Stomach Family History Mother Breast cancer Surgical History H/O arthroscopy of left knee Social History Smoking Status: Never smoker alcohol intake: current alcohol intake frequency: holidays/special occasions only ROS ROS ED ROS Narrative Denies recent illness. Review of Systems ROS Unobtainable: Denies due to encephalopathy Constitutional Constitutional ED: Denies chills or fever(s) Eyes Eyes: Denies blurry vision ENT ENT ED: Denies ear pain Cardiovascular Cardiovascular: Denies chest pain or palpitations Respiratory/Chest Respiratory/Chest: Denies cough or dyspnea Gastrointestinal Gastrointestinal: Denies abdominal pain Genitourinary Genitourinary ED: Denies dysuria or hematuria Musculoskeletal Musculoskeletal: Denies arthralgias or back pain Integumentary Denies abscess or Abrasions Neurologic Neurologic: Denies headache(s) or paresthesias Psychiatric Psychiatric: Denies anxiety or depression Endocrine Endocrinology: Denies polydipsia or polyphagia Hematologic/Lymphatic Hematologic/Lymphatic: Denies lymphadenopathy Allergic/Immunologic Allergic/Immunologic ED: Denies mouth swelling or tongue swelling EXAM Physical Exam Narrative Exam Narrative: Well-appearing 78-year-old female. Vital signs stable afebrile. Initial blood pressure is elevated at 240/91 she has a history of hypertension and is on medication for that. HEENT exam unremarkable. Lungs clear. Heart regular rhythm rate about 70 no murmur. Abdomen soft nontender. Moving all 4 extremities. Specifically the left hip and knee are nontender with normal range of motion. The left ankle there is no reproducible tenderness. There is no significant swelling. There is no redness or warmth. There is no effusion. There is no bony deformity. She has full flexion extension of the left ankle. Achilles tendon is intact. Normal DP pulse. Able to wiggle her toes. No tenderness of bony deformity nor any swelling to the foot. Neurologic exam normal. Very normal-appearing left ankle. Const Vital Signs: 06/22/23 10:36 Temperature 98.2 F Temperature Source Temporal Pulse Rate 70 Respiratory Rate 18 Blood Pressure 240/91 H Blood Pressure Mean 140 Pulse Ox 100 Oxygen Delivery Method Room Air Positive well nourished and well developed; Negative for obese, cachectic, contractures or unkempt General Appearance ED: well developed and NAD; Negative for unkempt, cachectic or contractures Nutritional Appearance: Negative for cachectic or obese HEENT Reports moist mucous membranes normocephalic and atraumatic; Negative for trauma or tenderness Eyes PERRL General Eye ED: Negative for other Neck full ROM and supple Thyroid: Negative for tender Lymph Lymphatic: Negative for other Chest Wall inspection of chest normal and palpation of chest normal Resp normal respiratory effort, no retractions and clear to auscultation bilaterally Effort and Inspection: Negative for pain with movement Auscultation: Negative for rales, rhonchi, wheezes or diminished lung sounds Cardio regular rate, regular rhythm, S1 normal heart sound, S2 normal heart sound and no murmurs Rate: Negative for bradycardia or tachycardic Rhythm: Negative for abnormal rhythm Bruits: Negative for other GI non-tender, non-distended and no masses Inspection: Negative for abdominal distention Auscultation: normoactive bowel sounds Palpation: soft; Negative for tender, guarding or rebound tenderness present Bladder / Kidney Exam: No other Back/Spine no CVA tenderness General Back: Negative for CVA tenderness Cervical Spine: Negative for cervical spine tenderness Thoracic Spine / Upper Back: Negative for thoracic spinal tenderness Extremity normal to inspection and full ROM Extremity Narrative: Both lower extremities have a normal exam. Specifically the left ankle is not tender. Is not swollen. He has normal range of motion. Normal DP pulse. No redness or warmth. General Extremety ED: Negative for cyanosis or edema General Extremity: Negative for cyanosis or edema Neuro oriented x3, CN's II-XII intact bilaterally, moves all extremities and no sensory deficits noted Sensorium / Orientation: alert, oriented to person, oriented to place and oriented to time; Negative for orientation impaired, confused, lethargic or stuporous Motor Exam: strength 5/5 throughout Psych mental status grossly normal Appearance: Negative for unkempt Speech: No other Mood & Affect: Negative for anxious Skin no wounds Lesions: no lesions Rashes: no rashes Trauma: Negative for abrasion or laceration MDM MDM MDM Narrative Medical decision making narrative: 78-year-old female with atraumatic left ankle pain. She has had this before. Primary care physician's office gave her a shot of steroids. Initially felt better not feels uncomfortable again. Worse with walking. Obtaining an x-ray. Clinically this does not look like gout nor does she have any history of that. It does not look infected. It is not swollen or red. I do not think lab work is necessary. Repeat exam patient doing well. There is no reproducible pain in the ankle. There is no swelling or redness. She and I went over her x-ray which looked really good. There is no significant signs of arthritis even of that so I think the cause of her pain is. There is no signs clinically of infection or gout. Patient is already on prednisone for her back. She will be written for Vicodin for pain. She will follow-up with the foot and ankle specialist. History & Record Review Discussion w/independent historian: Patient Radiography Diagnostic Testing: Clinical Impression(s) from Imaging Studies Ankle X-Ray 06/22/23 11:05 IMPRESSION: Normal x-ray examination of the ankle. Electronically Signed: Oli Lynn MD at 11:51 EST , Left ankle x-ray, 3 views, interpreted by myself shows and the radiologist shows no acute abnormality. No fracture. No dislocation. Discharge Plan Triage Chief Complaint: Lower Extremity Injury ED Provider: Damon Roca Dx/Rx/DC Orders Clinical Impression: Arthritis, Acute ankle pain, Chronic hypertension Prescriptions: New hydrocodone-acetaminophen 5-300 mg tablet 1 tab PO Q4H PRN (Reason: pain) 7 Days Qty: 20 0RF No Action hydrocortisone 2.5 % cream 1 applic TOPICAL BID PRN (Reason: rash) Qty: 30 0RF omega 5-sjc-coq-fish oil [Fish Oil] 300-1,000 mg capsule 1 cap PO DAILY zolpidem 10 mg tablet 10 mg PO QHS PRN PRN (Reason: Insomnia) Patient Comments: sleep apixaban 2.5 mg tablet 2.5 mg PO BID Patient Comments: take 1 tablet by mouth twice a day atorvastatin 20 MG tablet 20 mg PO QHS dextromethorphan-guaifenesin 10 ML syrup 10 ml PO Q6H PRN PRN (Reason: Cough) citalopram 20 MG tablet 10 mg PO QHS Patient Comments: take 1/2 tablet by mouth once daily albuterol sulfate 6.7 GM HFA aerosol inhaler 1 puff inhalation Q6H PRN MDD 2 puffs every 6 hours PRN (Reason: Sob &/Or Wheezing) lisinopril 40 MG tablet 40 mg PO DAILY Qty: 30 0RF cefadroxil 500 MG capsule 1,000 mg PO BID Qty: 20 0RF Oxygen, Home [Home Oxygen] 2 lpm NASAL CONT Qty: 1 0RF Rx Instructions: Primary Care Provider: Magda Ayala Referrals: Andrew Person DPM [Med Staff - Active Staff] - As soon as possible Jamie,Magda, DO [Primary Care Provider] - Activity Restrictions/Additional Instructions: Your ankle x-ray and exam are both really good. I suspect this is secondary to arthritis. There is no signs of any trauma, gout or infection. Ice to the ankle. Continue on your prednisone which should help any inflammation. Follow-up with the foot and ankle specialist. Vicodin for pain. Disposition Disposition: Home, Self Care
--- NOTE | 2023-06-22 11:05 | RAD_ITS ---
STUDY: X-RAY - LEFT ANKLE REASON FOR EXAM: Female, 78 years old. Pain following a recent fall. TECHNIQUE: 3 view(s) of the ankle. COMPARISON: None. FINDINGS: Normal visualized distal tibia and fibula. Normal medial and lateral malleoli. Normal tibiotalar articulation and ankle mortise. Normal visualized talus and calcaneus. The visualized subtalar, talonavicular, calcaneocuboid and tarsal articulations are normal. The soft tissue structures are unremarkable. RAD/Ankle min 3 Views IMPRESSION: Normal x-ray examination of the ankle. Electronically Signed: Oli Lynn MD at 11:51 EST ,
[2023-06-22] MEDS: HYDROcodone Bitartrate/Apap 5/325 Tablet PO (11:19)
[2023-06-22 12:55] VITALS: BP 228/78; PULSE 87; RESP 16; O2SAT 96
== END 2023-06-22 12:59 | disposition home or self-care (01) ==
PROVIDERS: Emergency Provider Emergency Medicine; PCP Internal Medicine; Visit Provider Emergency Medicine
DX: M19.072 Primary osteoarthritis, left ankle and foot (principal); I10 Essential (primary) hypertension; Z79.899 Other long term (current) drug therapy
CPT/HCPCS: 73610; 99282

== ENCOUNTER → 2023-07-09 | Outpatient (CLI) | payer MEDICARE, SELFPAY ==
--- NOTE | 2023-07-09 10:28 | BI_ITS ---
MAMMOGRAPHY - BILATERAL SCREENING REASON FOR EXAM: Female, 78 years old. Routine annual screening examination. PERTINENT HISTORY: Mother with breast cancer. History of bilateral breast reduction surgery. TECHNIQUE: Digital bilateral breast mikel (3D mammographic acquisition) in the CC and MLO projections. 2-D mediolateral oblique (MLO) and craniocaudad (CC) views of both breasts were obtained. CAD: Full Field Digital Mammography with Computer Added Detection was performed. COMPARISON: Comparison is made with prior study dated June 22, 2022 and June 02, 2020. FINDINGS: Breast Composition: The breasts are heterogeneously dense, which may obscure small masses. There are no dominant masses or suspicious calcifications. Stable retroareolar calcifications. A tissue clip marker is seen in the slightly inferior medial aspect of the retroareolar region of the breasts. A 9.1 mm well-defined nodule is seen at the biopsy site. No other significant abnormalities are identified. BI/SCRN MAMM (CAD)W/MIKEL BILAT IMPRESSION: Stable bilateral screening mammogram. Yearly follow-up mammogram recommended. (A) ASSESSMENT CATEGORY: BIRADS Category 2: Benign. A letter regarding these results will be sent to the patient by the facility within 30 days. Approximately 10% of breast cancers are not detected by mammography. A normal mammogram should not delay biopsy of a clinically suspicious abnormality. [id number] Electronically Signed: Oli Lynn MD at 11:09 EST ,
[2023-07-09 15:07] LABS: Rheumatoid Factor < 10.0 IU/mL (<15)
[2023-07-11 11:09] LABS: ANTINUCLEAR ANTIBODIES DIRECT Negative (Negative)
[2023-07-11 14:09] LABS: CCP IgG Antibodies 2 units (0-19); Cytoplasmic Ab (C-ANCA) <1:20 titer (Neg:<1:20); Perinuclear Ab (P-ANCA) <1:20 titer (Neg:<1:20)
== END | disposition home or self-care (01) ==
PROVIDERS: Internal Medicine Critical Care Medicine; PCP Internal Medicine; Referring Provider Internal Medicine; Visit Provider Internal Medicine
DX: Z12.31 Encounter for screening mammogram for malignant neoplasm of breast (principal)
CPT/HCPCS: 36415; 77063; 77067; 86038; 86200; 86225; 86235; 86256; 86431

== ENCOUNTER 2023-07-31 11:30 | Emergency (ER) | payer MEDICARE, SELFPAY ==
[2023-07-31 11:31] VITALS: BP 228/84; PULSE 78; RESP 14; TEMP 36.6; O2SAT 99
[2023-07-31 11:46] VITALS: BMI 28.1
--- NOTE | 2023-07-31 11:49 | EX.ED.DYSGE1 ---
HPI <JAYDA De La Cruz - Last Filed: 07/31/23 15:38> History of Present Illness Chief Complaint: Fall Narrative Narrative: Pain presenting today due to a fall that occurred this morning. She reports that she was performing an outpatient walking pulse ox test with pulmonology when she tripped over her feet and hit her forehead on the ground. She reports slight pain to her forehead and right knee. She denies loss of consciousness. She is on Eliquis. She denies neck pain or any other injury. [facility] <JAYDA De La Cruz - Last Filed: 07/31/23 15:38> [facility] Medical History (Updated 07/31/23 @ 12:55 by JAYDA De La Cruz) Diarrhea Difficulty balancing HTN (hypertension) Hx of concussion Loss of consciousness Home Medications apixaban 2.5 mg tablet 2.5 mg PO BID blood thinner 06/15/19 [History Last Taken 07/01/19] albuterol sulfate 90 mcg/actuation aerosol inhaler 1 puff inhalation Q6H PRN PRN Sob &/Or Wheezing 07/01/19 [History Last Taken 07/01/19] atorvastatin 20 mg tablet 20 mg PO QHS 07/01/19 [History Last Taken 06/30/19] omega 2-vml-ioe-fish oil 300 mg-1,000 mg capsule (Fish Oil) 1 cap PO DAILY 07/05/22 [History Last Taken Unknown] lisinopril 20 mg tablet 10 mg PO BID 07/09/23 [History Last Taken Unknown] Allergy/AdvReac Type Severity Reaction Status Date / Time amoxicillin [Amoxicillin] Allergy Swelling Verified 07/31/23 11:30 azithromycin [From Zithromax] Allergy Rash Verified 07/31/23 11:30 Penicillins Allergy Hives Verified 07/31/23 11:30 Sulfa (Sulfonamide Allergy Angioedema Verified 07/31/23 11:30 Antibiotics) sulfamethoxazole Allergy Rash Verified 07/31/23 11:30 [From Septra] triamcinolone acetonide Allergy Rash Verified 07/31/23 11:30 [From Nasacort AQ] trimethoprim [From Septra] Allergy Rash Verified 07/31/23 11:30 codeine AdvReac Vomiting Verified 07/31/23 11:30 nitrofurantoin AdvReac Upset Verified 07/31/23 11:30 [From Macrobid] Stomach Family History Mother Breast cancer Surgical History H/O arthroscopy of left knee Social History Smoking Status: Never smoker alcohol intake: current alcohol intake frequency: holidays/special occasions only ROS <JAYDA De La Cruz - Last Filed: 07/31/23 15:38> ROS ED Constitutional Constitutional ED: Denies chills or fever(s) Eyes Eyes: Denies change in vision Cardiovascular Cardiovascular: Denies chest pain Respiratory/Chest Respiratory/Chest: Denies cough or dyspnea Gastrointestinal Gastrointestinal: Denies abdominal pain, nausea or vomiting Musculoskeletal Musculoskeletal: Denies arthralgias or myalgias Integumentary Denies rash Neurologic Neurologic: Reports headache(s); Denies dizziness or weakness EXAM <JAYDA De La Cruz - Last Filed: 07/31/23 15:38> Physical Exam Const Vital Signs: 07/31/23 11:31 07/31/23 11:44 07/31/23 13:02 Temperature 97.9 F Temperature Source Temporal Pulse Rate 78 Respiratory Rate 14 Respiratory Effort Normal Non-Labored Respiratory Depth Normal Respiratory Pattern Normal Blood Pressure 228/84 H 164/70 H Blood Pressure Mean 132 101 Pulse Ox 99 Oxygen Delivery Method Room Air Room Air Positive well nourished, well developed and no apparent distress General Appearance ED: well developed HEENT Reports normocephalic and head/scalp atraumatic HEENT Narrative: slight erythema to the bridge of the nose and forehead Mouth ED: Yes moist mucous membranes normal Eyes PERRL and EOMs intact bilaterally Neck full ROM and supple General: Negative for tenderness Chest Wall inspection of chest normal Resp normal respiratory effort and clear to auscultation bilaterally Cardio regular rate and regular rhythm GI soft to palpation, non-tender, non-distended and no masses Back/Spine normal ROM and normal to inspection Extremity normal to inspection and full ROM Extremity Narrative: Full range of motion to the right knee, no effusion or tenderness to palpation. Neuro oriented x3, CN's II-XII intact bilaterally, moves all extremities, no focal motor deficits and no sensory deficits noted Sensorium / Orientation: awake and alert Psych mental status grossly normal and thought process normal Skin no rashes or lesions noted and no wounds <Dr. Damon Roca MD - Last Filed: 07/31/23 14:04> Physical Exam Const Vital Signs: 07/31/23 11:31 07/31/23 11:44 07/31/23 13:02 Temperature 97.9 F Temperature Source Temporal Pulse Rate 78 Respiratory Rate 14 Respiratory Effort Normal Non-Labored Respiratory Depth Normal Respiratory Pattern Normal Blood Pressure 228/84 H 164/70 H Blood Pressure Mean 132 101 Pulse Ox 99 Oxygen Delivery Method Room Air Room Air [facility] <JAYDA De La Cruz - Last Filed: 07/31/23 15:38> [facility] Narrative Medical decision making narrative: Patient presenting today due to a head injury that occurred this morning. She tripped over her feet and hit her forehead on the ground while doing an outpatient walking pulse ox test with pulmonology. She is on Eliquis, head CT will be obtained. She is not complaining of any neck pain nor does she have any neck tenderness, therefore do not feel that any neck imaging is indicated. CT scan is negative for any acute findings. On repeat exam patient is feeling well and would like to go home. I have given her return instructions and she is to follow-up with her PCP. She will be discharged home in stable condition and is comfortable with plan. Radiography Diagnostic Testing: Clinical Impression(s) from Imaging Studies Brain CT 07/31/23 11:53 IMPRESSION: 1. No acute intracranial abnormality. 2. Stable senescent changes. Electronically Signed: Jos De La Fuente MD at 12:44 [facility] , <Dr. Damon Roca MD - Last Filed: 07/31/23 14:04> [facility] Narrative Medical decision making narrative: Patient presenting today due to a head injury that occurred this morning. She tripped over her feet and hit her forehead on the ground while doing an outpatient walking pulse ox test with pulmonology. She is on Eliquis, head CT will be obtained. She is not complaining of any neck pain nor does she have any neck tenderness, therefore do not feel that any neck imaging is indicated. CT scan is negative for any acute findings. On repeat exam patient is feeling well and would like to go home. I have given her return instructions and she is to follow-up with her PCP. She will be discharged home in stable condition and is comfortable with plan. I have personally performed a face to face assessment of the patient and have reviewed the ISATU Note. I performed a substantive portion of the visit including all aspects of the following. My taylor findings include: History is-year-old female on anticoagulation fell while doing a pulmonary test and struck her nose and forehead. No LOC. Sent her down for evaluation. Denies any neck pain. Denies any other injuries. Exam is [well-appearing 78-year-old female. Vital signs stable afebrile. HEENT exam small contusion on her forehead and bridge of her nose. No bleeding. No deformity. Pupils round react to light. Scalp nontender. No hematoma. No laceration. Neck nontender full range of motion. Trachea midline. Lungs clear. Heart regular rhythm no murmur. Chest wall and ribs nontender. Abdomen soft nontender. Pelvic girdle intact. Moving all 4 extremities. Nontender no edema. Neurologically she is awake and alert with no focal motor deficits. Back nontender.] Medical Decision Making [-year-old fell on blood thinners hit her head. CAT scan was obtained showed no acute bleed read by the radiologist and reviewed by me. Discharged home with head injury instructions.] Other additions or changes: [None] Radiography Diagnostic Testing: Clinical Impression(s) from Imaging Studies Brain CT 07/31/23 11:53 IMPRESSION: 1. No acute intracranial abnormality. 2. Stable senescent changes. Electronically Signed: Jos De La Fuente MD at 12:44 EST , Discharge Plan Triage Chief Complaint: Fall ED Midlevel Provider: Bella Ta ED Provider: Damon Roca Dx/Rx/DC Orders Clinical Impression: Head injury, Fall Instructions: ED Head Injury (Adult) Prescriptions: No Action omega 3-qlo-hnp-fish oil [Fish Oil] 300-1,000 mg capsule 1 cap PO DAILY lisinopril 20 mg tablet 10 mg PO BID Patient Comments: take 1/2 tablet by mouth twice a day apixaban 2.5 mg tablet 2.5 mg PO BID Patient Comments: take 1 tablet by mouth twice a day atorvastatin 20 MG tablet 20 mg PO QHS albuterol sulfate 6.7 GM HFA aerosol inhaler 1 puff inhalation Q6H PRN MDD 2 puffs every 6 hours PRN (Reason: Sob &/Or Wheezing) Primary Care Provider: Magda Ayala Referrals: Magda Ayala DO [Primary Care Provider] - 3-5 Days Activity Restrictions/Additional Instructions: Please return for any worsening headache, nausea, or vomiting. Follow-up with your PCP. Disposition Disposition: Home, Self Care Discharge Date/Time: 07/31/23 13:03
--- NOTE | 2023-07-31 11:53 | CT_ITS ---
EXAM: CT HEAD WITHOUT INTRAVENOUS CONTRAST CLINICAL INDICATION: fall, head injury TECHNIQUE: Multiple axial images were obtained of the head without intravenous contrast. This CT exam was performed using one or more of the following dose reduction techniques: automated exposure control, adjustment of the mA and/or kV according to patient size, and/or use of iterative reconstruction technique. COMPARISON: CT Head dated 03/20/2019 FINDINGS: BRAIN AND EXTRA-AXIAL SPACES: No hemorrhage or mass effect. No acute ischemia. Areas of diminished white matter density noted within both cerebral hemispheres suggestive of chronic microvascular change. Prominence of the cortical sulci and ventricles related to volume loss change. BONES/JOINTS: No suspicious lytic or blastic abnormality. SINUSES: No acute sinusitis. MASTOID AIR CELLS: Normal. Clear. CT/Brain/Head without Contrast IMPRESSION: 1. No acute intracranial abnormality. 2. Stable senescent changes. Electronically Signed: Jos De La Fuente MD at 12:44 EST ,
[2023-07-31 13:02] VITALS: BP 164/70
== END 2023-07-31 13:03 | disposition home or self-care (01) ==
PROVIDERS: Emergency Provider Emergency Medicine; PCP Internal Medicine; Visit Provider Emergency Medicine
DX: S00.83XA Contusion of other part of head, initial encounter (principal); S00.33XA Contusion of nose, initial encounter; W01.198A Fall on same level from slipping, tripping and stumbling with subsequent striking against other object, initial encounter; Y93.01 Activity, walking, marching and hiking; Y99.8 Other external cause status; I10 Essential (primary) hypertension; Z79.01 Long term (current) use of anticoagulants; Z79.899 Other long term (current) drug therapy
CPT/HCPCS: 70450; 99282

== ENCOUNTER → 2023-07-31 | Outpatient (CLI) | payer MEDICARE, SELFPAY ==
[2023-07-31 11:15] VITALS: PULSE 103; PULSE 104; PULSE 73; PULSE 93; O2SAT 93; O2SAT 95; O2SAT 96; O2SAT 98
--- NOTE | 2023-07-31 11:40 | CPS ---
Pt was doing well during her walk and after she made the turn at the end of [place] she tripped over her feet, fell and hit her face. Dr Best was walking down [address] and was able to assist with assessing pt. A rapid response was called and per Dr Best pt was ok to get up and into wheelchair. Pt was taken to ER to be examined.
--- NOTE | 2023-08-02 10:18 | WT_ITS ---
PSN 6 Minute Walk Test 6 Minute Walk Test 6 Minute Walk Test: 6 Minute Walk Test PSN:6-Minute Walk Test Start: 07/31/23 11:36 Freq: Status: Active Protocol: [id number].6MINW Document 07/31/23 11:15 [facility] (Rec: 07/31/23 11:44 [facility] [id number]) 6 Minute Walk Test Date Performed 07/31/23 Time Performed 11:15 Height 5 ft 7 in Weight: 172 lb Weight in Pounds 172.[address]: Tyrese Assistive device used: None Pre-test Oxygen Delivery Method Room Air Pulse Ox 98 Pulse Rate (60-100) 73 Dyspnea Stephani Scale (0-10) 0 Exertion Stephani Scale (6-20) 6 1st minute Oxygen Delivery Method Room Air Pulse Ox 96 Pulse Rate (60-100) 93 2nd minute Oxygen Delivery Method Room Air Pulse Ox 93 Pulse Rate (60-100) 103 H 3rd minute Oxygen Delivery Method Room Air Pulse Ox 95 Pulse Rate (60-100) 104 H 4th minute Oxygen Delivery Method Room Air Pulse Ox 95 Pulse Rate (60-100) 93 5th minute Oxygen Delivery Method Room Air Pulse Ox 95 Pulse Rate (60-100) 104 H Full Laps Walked 18 Partial Lap, Number of Tiles Walked 0 Total Distance Walked (ft) 1062 07/31/23 11:40 Cardiopulmonary Services by Larissa Rodriguez Pt was doing well during her walk and after she made the turn at the end of [place] she tripped over her feet, fell and hit her face. Dr Best was walking down [address] and was able to assist with assessing pt. A rapid response was called and per Dr Best pt was ok to get up and into wheelchair. Pt was taken to ER to be examined. Initialized on 07/31/23 11:40 - END OF NOTE Interpretation Interpretation: The patient ambulated 1062 feet over the course of 6 minutes beginning on room air without assistive devices. Pretesting oxygen saturation was noted to be 98% on room air. With ambulation, the jorge oxygen saturation was 93%. This represents a significant exertional oxygen desaturation. Recommendations Recommendations: There is no indication for the use of supplemental oxygen at this time. However, close interval follow-up was recommended, given the degree of oxygen desaturation noted during the study.
== END | disposition home or self-care (01) ==
LOC: PSN 11:08
PROVIDERS: PCP Internal Medicine; Referring Provider Internal Medicine Critical Care Medicine; Visit Provider Internal Medicine Critical Care Medicine
DX: I27.20 Pulmonary hypertension, unspecified (principal)
CPT/HCPCS: 94618

== ENCOUNTER → 2023-08-15 | Outpatient (CLI) | payer MEDICARE, SELFPAY ==
--- NOTE | 2023-08-16 12:33 | PFT ---
INTRODUCTION: The patient is an 78-year-old female who presents for pulmonary function studies secondary to a diagnosis of pulmonary hypertension. Respiratory therapy reported good patient effort. Bronchodilators were used during testing. INTERPRETATION: Forced expiration spirometry demonstrated no evidence of a large airways obstructive ventilatory defect. There was a significant response to aerosolized bronchodilators. Body plethysmography was performed and revealed lung volumes to be within normal limits. Diffusing capacity by single breath CO was moderately reduced at 68% of predicted. IMPRESSION: Stigmata of small airways disease with significant bronchodilator response and moderate reduction in diffusing capacity.
== END | disposition home or self-care (01) ==
LOC: PSN 09:01
PROVIDERS: PCP Internal Medicine; Referring Provider Internal Medicine Critical Care Medicine; Visit Provider Internal Medicine Critical Care Medicine
DX: I27.20 Pulmonary hypertension, unspecified (principal)
CPT/HCPCS: 94060; 94726; 94729

== ENCOUNTER → 2023-08-23 | Outpatient (CLI) | payer MEDICARE, SELFPAY ==
--- NOTE | 2023-08-23 11:40 | NM_ITS ---
CLINICAL: 78-year-old female with history of shortness of breath and potential chronic recurrent pulmonary embolism. VENTILATION-PERFUSION LUNG SCINTIGRAPHY COMPARISON: None available FINDINGS: The patient was administered 40.9 mCi 99m Tc DTPA aerosol. The aerosol ventilation study demonstrates heterogeneous ventilation identified throughout the bilateral lung caruso. Central clumping of the aerosol is noted in the bilateral hemithorax. Following the intravenous administration of 5.3 mCi of 99m Tc MAA the pulmonary perfusion study reveals uniform perfusion throughout both lung caruso. There are no segmental or subsegmental perfusion defects identified. There are no ventilation-perfusion mismatches observed. NM/Lung Scan Vent/Perf IMPRESSION: 1. NORMAL 99m Tc MAA pulmonary perfusion imaging examination, according to PIOPED II interpretive criteria. (Sotsman et al, Radiology 246: 941, 2008 Soluke et al, J Nucl Med 49: 1741, 2008). 2. Central clumping of the aerosol may be secondary to obstructive airway mechanics and or clinical tachypnea. 3. Patients with documented pulmonary hypertension and the presence of low probability, very low probability and normal ventilation-perfusion lung scintigraphy are associated with a LOW likelihood of thromboembolic pulmonary hypertension. (Alexander et al, Chest 84: 679, 1983 Lisbona et al, AJR 144: 27, 1985). Electronically Signed: Masoud Murdock DO at 23:57 EST ,
== END | disposition home or self-care (01) ==
LOC: NM 11:38
PROVIDERS: PCP Internal Medicine; Referring Provider Internal Medicine Critical Care Medicine; Visit Provider Internal Medicine Critical Care Medicine
DX: I27.20 Pulmonary hypertension, unspecified (principal)
CPT/HCPCS: 78582; A9540; A9567

== ENCOUNTER → 2023-12-07 | Outpatient (CLI) | payer MEDICARE, SELFPAY ==
--- NOTE | 2023-12-07 15:15 | RAD_ITS ---
STUDY: X-RAY - ABDOMEN/PELVIS REASON FOR EXAM: Female, 78 years old. ABDOMINAL PAIN, COLICKY TECHNIQUE: Single AP view of the abdomen / pelvis. COMPARISON: None. FINDINGS: Elevation of the right hemidiaphragm. There is an unremarkable bowel gas pattern. There is no demonstrated free abdominal air. The visualized liver, spleen and kidneys are grossly normal in size and morphology. Normal soft tissue structures. There are diffuse degenerative changes of the visualized lumbar spine. RAD/Abdomen Single View IMPRESSION: No acute abnormality is seen. Electronically Signed: Oli Lynn MD at 15:32 EDT ,
[2023-12-07 15:35] LABS: Erythrocyte Sedimentation Rate 2 mm/hr (0-30)
[2023-12-07 15:36] LABS: Absolute Lymphocyte Count 2.06 X10^3/uL (0.83-4.51); Absolute Neutrophil Count 2.4 X10^3/uL (2.0-7.7); Basophil# 0.03 X10^3/uL; Basophil% 0.6 % (0-1); Eosinophil# 0.17 X10^3/uL; Eosinophils% 3.3 % (0-5); Hematocrit 42.5 % (37-47); Hemoglobin 13.6 g/dL (12.0-15.0); Lymphocyte # 2.06 X10^3/ul (0.83-4.51); Lymphocyte % 40.2 % (19-41); Mean Corpuscular Hgb 31.4 pg (27.0-32.0); Mean Corpuscular Volume 98.2 fL (81-99); Monocyte# 0.51 X10^3/uL; Monocyte% 9.9 % (0-10); NRBC Flagged by Analyzer 0 % (0-5); Neutrophil # 2.35 X10^3/uL (2.7-7.7); Neutrophil % 45.8 % (47-70); Platelet Count 156 K/mm3 (150-450); RBC Distribution Width SD 43.7 fl (35.1-43.9); Red Blood Count 4.33 M/mm3 (4.2-5.4); White Blood Count 5.1 K/mm3 (4.4-11.0)
[2023-12-07 15:50] LABS: Lactic Acid 1.3 mmol/L (0.4-1.9)
[2023-12-07 15:58] LABS: ALB/GLOB Ratio 1.1 RATIO (0.9-2.4); AST(SGOT) 31 U/L (15-37); Alanine Aminotransfer ALT/SGPT 37 U/L (13-56); Albumin, Serum 3.9 g/dL (3.2-5.0); Alkaline Phosphatase 85 U/L (45-117); Anion Gap 5 (5-15); BUN 20 mg/dL (7-18); BUN/Creat Ratio 25.3 RATIO (10-20); Calcium,Total 9.6 mg/dL (8.5-10.1); Chloride 105 mmol/L (98-107); Creatinine, Serum 0.79 mg/dL (0.55-1.02); EST Glomerular Filtration Rate 74 mL/min (>60); Est Glom Filt Rate - Afr Amer 90 mL/min (>60); Globulin 3.6 g/dL (2.2-4.2); Glucose 102 mg/dL (74-106); Lipase 31 U/L (13-75); Potassium 4.3 mmol/L (3.5-5.1); Protein, Total 7.5 g/dL (6.4-8.2); Sodium Level 138 mmol/L (136-145)
== END | disposition home or self-care (01) ==
LOC: LAB 14:57
PROVIDERS: PCP Internal Medicine; Referring Provider Internal Medicine; Visit Provider Internal Medicine
DX: R10.84 Generalized abdominal pain (principal); R19.7 Diarrhea, unspecified
CPT/HCPCS: 74018; 80053; 83605; 83690; 85025; 85652

== ENCOUNTER 2024-03-19 12:00 | Outpatient (RCR) | payer MEDICARE, SELFPAY | END 2024-03-19 19:00 | disposition home or self-care (01) | LOC: PT 12:00 | PROVIDERS: PCP Internal Medicine; Referring Provider Internal Medicine; Visit Provider Internal Medicine | DX: M54.50 Low back pain, unspecified (principal); M62.838 Other muscle spasm | CPT/HCPCS: 97110; 97162 ==

== ENCOUNTER → 2024-09-10 | Outpatient (CLI) | payer MEDICARE, SELFPAY ==
--- NOTE | 2024-09-10 14:06 | BI_ITS ---
PROCEDURE: SCRN MAMM (CAD)W/MIKEL BILAT REASON FOR EXAM: Routine yearly screening mammography. TECHNIQUE: Bilateral diagnostic digital breast tomosynthesis with 2D and 3D images. Computer aided detection. COMPARISON: Prior exam(s) dated 07/09/2023 FINDINGS: There are scattered areas of fibroglandular density. No suspicious masses, suspicious cluster of calcifications, architectural distortion or secondary sign of malignancy is identified in either breast. Benign-appearing secretory type calcifications, macrocalcifications and round microcalcifications are seen in both breast. Benign vascular calcifications are seen in the right breast. A cluster of benign-appearing secretory type calcifications are seen in the retroareolar region, far anterior aspect of the left breast and a similar when compared to the prior exam. A radiopaque clip is seen at this location. The biopsy was benign. BI/SCRN MAMM (CAD)W/MIKEL BILAT IMPRESSION: BI-RADS 2: BENIGN. RECOMMEND ANNUAL MAMMOGRAPHIC SCREENING. Follow-up code: Routine Follow-up Reading Location: [id number]
--- NOTE | 2024-09-10 14:12 | BD_ITS ---
PROCEDURE: DEXA BONE DENSITY STUDY REASON FOR EXAM: F, age 79 y/o . Patient is postmenopausal TECHNIQUE: DEXA scan of the lumbar spine and both hips. COMPARISON: DEXA examination dated 06/22/2022 FINDINGS: T-SCORES Lumbar spine: Total bone mineral density measures 1.668 grams/centimeter squared. T-score measures 5.6 and Z-score measures 8.4. There has been an increase in the bone mineral density of the lumbar spine by 0.7% since the prior study dated 06/22/2022 Left hip: Total bone mineral density of left hip measures 0.989 g per cm2. T- score measures 0.4 and Z-score measures 2.5. Left femoral neck bone mineral density measures 0.860 grams/centimeter sq. T-score measures 0.1 and Z-score measures 2.5. There has been a significant decrease in the bone mineral density of the left hip by 5.2% since the prior study dated 06/22/2022 Right hip: Total bone mineral density of the right hip measures 1.021 grams/centimeter sq. T-score measures 0.6 and Z-score measures 2.8. Right femoral neck bone mineral density measures 0.831 grams/centimeter squared. T-score measures -0.2 and Z-score measures 2.2. There has been a decrease in the bone mineral density of the right hip by 1.8% since the prior study dated 06/22/2022 Patient demonstrates normal bone mineral density of the lumbar spine and both hips. FRAX* Results: 10 Year Probability of Fracture: Hip Fracture(1): 22% Major Osteoporotic Fracture(2): 10% *FRAX is a trademark of the [employer]'s [employer] for Metabolic Bone Disease, World Health Organization (WHO) Collaborating [employer]. 1-The 10-year probability of fracture may be lower than reported if the patient has received treatment. 2-Major Osteoporotic Fracture: Clinical Spine, Forearm, Hip or Shoulder. The T-scores are also available for review on the [facility] PACS or by accessing the [facility] electronic medical record. BD/Dexa Bone Density Study IMPRESSION: NORMAL T-SCORES. Reading Location: [facility]
== END | disposition home or self-care (01) ==
LOC: OPBD 14:05
PROVIDERS: PCP Internal Medicine; Referring Provider Internal Medicine; Visit Provider Internal Medicine
DX: Z13.820 Encounter for screening for osteoporosis (principal); Z78.0 Asymptomatic menopausal state; Z12.31 Encounter for screening mammogram for malignant neoplasm of breast
CPT/HCPCS: 77063; 77067; 77080

== ENCOUNTER → 2024-10-22 | Outpatient (CLI) | payer MEDICARE, SELFPAY ==
--- NOTE | 2024-10-22 12:39 | MRI_ITS ---
EXAM: MRI left ankle without IV contrast CLINICAL HISTORY: Pain, arthritis COMPARISON: None TECHNIQUE: Multisequence multiplanar MR images of the left ankle were obtained without the administration of intravenous contrast. Imaging sequences were performed to best display suspected pathology. FINDINGS: Mild Achilles tendinopathy without tear. Flexor tendons are intact. 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 Peroneus longus tendon is intact. No peroneal tenosynovitis. Extensor tendons are intact. Anterior and posterior syndesmotic ligaments are intact. Anterior talofibular, posterior talofibular and calcaneofibular ligaments are intact. Superficial and deep deltoid ligaments are intact. Plantar fascia is intact. Talar dome is intact. No significant joint effusion. No significant arthropathy. Sinus tarsi fat is preserved. Scarring throughout Kager's fat pad. MRI/Lower Ext Joint Only (Routine) IMPRESSION: 1. No acute process or significant arthropathy. 2. 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 3. Mild Achilles tendinopathy. 4. Scarring in Kager's fat pad. Reading Location: [facility]
== END | disposition home or self-care (01) ==
LOC: MRI 12:32
PROVIDERS: PCP Internal Medicine; Referring Provider Podiatrist; Visit Provider Podiatrist
DX: M19.072 Primary osteoarthritis, left ankle and foot (principal)
CPT/HCPCS: 73721

== ENCOUNTER → 2024-11-17 | Outpatient (CLI) | payer MEDICARE, SELFPAY ==
--- NOTE | 2024-11-17 11:43 | RAD_ITS ---
PROCEDURE: SHOULDER MIN 2 VIEWS 11/17/2024 REASON FOR EXAM: PAIN TECHNIQUE: Four views of the left shoulder were obtained. COMPARISON: None. FINDINGS: There is normal mineralization of the left shoulder osseous structures. There are no fractures or dislocations. Joint spaces are well preserved. Visualized portion of the left lung is clear. Left ribs appear unremarkable. RAD/Shoulder min 2 Views IMPRESSION: Unremarkable left shoulder study. Reading Location: [id number]
== END | disposition home or self-care (01) ==
LOC: MTRAD 11:42
PROVIDERS: PCP Internal Medicine; Referring Provider Internal Medicine; Visit Provider Internal Medicine
DX: M25.512 Pain in left shoulder (principal)
CPT/HCPCS: 73030

== ENCOUNTER 2025-01-08 12:00 | Outpatient (RCR) | payer MEDICARE, SELFPAY ==
--- NOTE | 2024-10-31 14:24 | HP.PTEVAL_ITS ---
Patient's Visit Information Visit Information Visit Information: PARESH LIVINGSTON is a 79 year old F referred to Physical Therapy by Dr. Magda Ayala DO with a diagnosis of Neck and LBP. Date of Evaluation: 10/31/24 Physical Therapist: Benton Ceron, PT, ATC Visit Plan Frequency: 2x /Week Duration: 3-6 weeks Plan: Postural edu, DTR to c/s, scap stab ex's, L rot cuff strengthening, UBE, and HEP Subjective Subjective: Pt reports her L shoulder and neck pain have been sore for months. Pt notes she often gets a massage to help with her pain, but the relief never lasts. Pt reports she has pain that radiates to the mid forearm region. Pt reports occasional sleep difficulty at this time secondary to L shoulder and arm pain. Pt reports she is L hand dominant. Pt reports her L shoulder does hurt a little with AROM, but the pain is there even without movement. Pt reports she has had this type of pain which did eventually resolve. 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 Pt reports she does get headaches at times, but notes she believes that is secondary to allergies. Pt reports she is able to perform all of the ADL's and IADL's at this time, but the pain is always present. Pt reports she flies out to [place] next week, so she wanted to get started today. 6/10 pain while sitting here in the clinic, 9/10 pain at worst. Pain Neck and L shoulder pain: Pain Intensity (Out of 10): 6 Pain Intensity Range: 9 Objective Objective: Neuro: B UE sensation is WNL to light touch. B bicipital reflex= 1/3 MMT: L shoulder ER is 4-/5. All other B UE's are grossly 5/5 and equal compared bilaterally. ROM: Shoulder ROM is WNL when compared bilaterally with exception to L shoulder ER with is limited to 15 degrees (R side 60). Pt is severely limited with retraction and extension of the cervical spine. Pt is moderately limited with side bending and rotation of the c/s. All other motions are WFL. Repeated movements: Repeated protraction in sitting 10x3 decreased pain. RRIS 10x3 Special tests: Pos apley compression test, empty can test Balance/Special Test Scores Oswestry Neck Score: 11 Goals Goal 1:: Decrease neck pain x 50% to aid with sleep Goal Time Frame: 4-6 Weeks Goal 2:: Increase C/S ROM in all planes to aid with driving Goal Time Frame: 4-6 Weeks Goal 3:: Decrease L shoulder pain x 50% to aid with IADL's Goal Time Frame: 4-6 Weeks Goal 4:: I with HEP Goal Time Frame: 4-6 Weeks Rehabilitation Potential Physical Therapy Diagnosis: Pt has neck pain, limited ROM, and difficulty with sleep secondary to deg changes in C/S Pt has L shoulder pain secondary to rotator cuff instability Rehabilitation Potential: Good Anticipated Interventions Patient/Client Instruction: Educate patient on: Condition and Plan of Care For the Purpose of:: To improve self management Therapeutic Exercise to Include: Strength training, Endurance training, Body mechanics, Postural training, Flexibilty training, Active ROM and Scapular Strength/Stabilization For the Purpose of:: To decrease pain, To increase ROM and To improve muscle performance and motor function Cryotherapy (ice pack, ice massage): Yes For the Purpose of:: To decrease pain Text: Thank you for the opportunity to evaluate your patient. For Medicare and Medicare HMO plans, please review the plan of care and approve it. It will need to be FAXED BACK to us at [phone] for Medicare purposes. For Medicare only, by signing this I certify the plan of care. Please let me know if there are questions or concerns regarding this plan of care. Physician Signature: Date:___
--- NOTE | 2025-01-08 12:54 | HP.PTDCSUM ---
Discharge Summary D/C summary: It has been my pleasure to treat PARESH LIVINGSTON referred by Dr. Magda Ayala DO, with the diagnosis of Neck and LBP for a total of 13 visit(s). Discharge Date: Please see the following information for a summary of their discharge status. Subjective Subjective: My neck and L shoulder are a little sore today Pain Neck and L shoulder pain: Pain Intensity (Out of 10): 3 Overall Improvement % Improvement: 70 Objective Objective/Function: L shoulder pain 3/10 L shoulder ROM: flex= 140, abd= 160, ER= 30, IR= WNL L shoulder MMT: flex= 8, abd= 10, ER= 6, IR= 11 #F C/S ROM is still moderately limited with ext, retraction, and B SB. All other motions are WNL Pt is I with HEP Goals Goal 1:: Decrease neck pain x 50% to aid with sleep Goal Progress: Goal Met Goal 2:: Increase C/S ROM in all planes to aid with driving Goal Progress: Progressing Goal 3:: Decrease L shoulder pain x 50% to aid with IADL's Goal Progress: Goal Met Goal 4:: I with HEP Goal Progress: Goal Met Plan Plan: Discharge D/C Information d/c sentence: If there are questions or concerns regarding this patient's physical therapy, please feel free to call me at [phone]. Thank you for the referral of this patient. Sincerely, Benton Ceron, PT, ATC Balance/Gait/Functional tests Balance/Special Test Scores Oswestry Neck Score: 11 Improvement % Improvement: 70
== END 2025-01-08 19:00 | disposition home or self-care (01) ==
LOC: PT 12:00
PROVIDERS: PCP Internal Medicine; Referring Provider Internal Medicine; Visit Provider Internal Medicine
DX: M54.12 Radiculopathy, cervical region (principal); M53.3 Sacrococcygeal disorders, not elsewhere classified
CPT/HCPCS: 97110; 97140; 97161; 97530

== ENCOUNTER 2025-07-06 10:30 | Outpatient (RCR) | payer MEDICARE, SELFPAY ==
--- NOTE | 2025-04-07 16:56 | HP.PTEVAL ---
Patient's Visit Information Visit Information Visit Information: PARESH LIVINGSTON is a 79 year old F referred to Physical Therapy by Dr. Magda Ayala DO with a diagnosis of B shoulder pain. Date of Evaluation: 04/07/25 Physical Therapist: Benton Ceron, PT, ATC Visit Plan Frequency: 2x /Week Duration: 4-6 Weeks Plan: B shoulder rot cuff strengthening, scap stab ex's, UBE, and HEP Subjective Subjective: Pt reports B of her shoulders are sore today. Pt notes she has had PT in the past for her R shoulder, but it is still sore. pt notes her R shoulder is much more sore that her L shoulder today. Pt notes her R hand will go numb while sleeping at night time. No tingling or numbness in L UE. Pt notes difficulty with getting to sleep at night secondary to her shoulder pain. Pt has had no recent diagnostic tests on her shoulders. Pt reports reaching out to her side or raising her arms above her head tends to increase her pain the most. Pt is L hand dominant. Pt notes she is not really limited from performing her yard work or house chores, she has to perform them more slowly with more frequent breaks. L shoulder pain is 4/10 currently while R shoulder pain is 8/10. Pain R shoulder: Pain Intensity (Out of 10): 8 L shoulder: Pain Intensity (Out of 10): 4 Objective Objective: Neuro: B UE sensation is WNL to light touch Palpation: Pt is tender throughout the distribution of the supraspinatus tendon. No obvious deformity noted at this time. ROM: L shoulder flex= 145, abd= 135, IR= WFL, ER= 30 degrees; R shoulder flex= 155, abd= 125, IR= WFL, ER= 60 #F MMT: L shoulder flex= 9, abd=14, IR= 13, ER= 6 #F; R shoulder flex= 6, abd= 13, IR= 12, ER= 6 #F Agricultural Mechanic strength: B UE's 50#F Special tests: Pos empty can and Neers Impingement tests Balance/Special Test Scores Quick DASH Score: 36.3625 Goals Goal 1:: Decrease B shoulder pain x 50% to aid with sleep Goal Time Frame: 4-6 Weeks Goal 2:: Increase B shoulder strength x 5 #F in all directions to aid with IADL's Goal Time Frame: 4-6 Weeks Goal 3:: I with HEP Goal Time Frame: 4-6 Weeks Rehabilitation Potential Physical Therapy Diagnosis: Pt has B shoulder pain, weakness, and limited ROM secondary to B shoulder impingement Rehabilitation Potential: Good Anticipated Interventions Patient/Client Instruction: Educate patient on: Condition and Plan of Care For the Purpose of:: To improve self management Therapeutic Exercise to Include: Strength training, Endurance training, Active ROM and Scapular Strength/Stabilization For the Purpose of:: To decrease pain, To increase ROM and To improve muscle performance and motor function Cryotherapy (ice pack, ice massage): Yes For the Purpose of:: To decrease pain Text: Thank you for the opportunity to evaluate your patient. For Medicare and Medicare HMO plans, please review the plan of care and approve it. It will need to be FAXED BACK to us at [phone] for Medicare purposes. For Medicare only, by signing this I certify the plan of care. Please let me know if there are questions or concerns regarding this plan of care. Physician Signature: Date:
--- NOTE | 2025-05-06 13:17 | HP.PTREVAL_ITS ---
Re-Evaluation Intro: Dr. Magda Ayala, DO, It has been my pleasure to treat PARESH LIVINGSTON over the last 9 visits for B shoulder pain. Please see the progress note below for an update on the physical therapy plan of care! Subjective Subjective: I am much better, but I am not limited Objective Objective/Function: Significant decrease in pain at this time 2-09/29 MMT: R shoulder flex= 10, abd= 13, IR= 14, ER= 10; L shoulder flex= 7, abd= 16, IR= 14, ER= 7 #F Pt is showing excellent gains at this time. Plan Plan Plan: 05/06/25- Cont B shoulder rot cuff strengthening, scap stab ex's, UBE, and HEP. Monitor soreness and pain throughout sessions, and look to do ex's bilaterally. Balance/Gait/Functional tests Balance/Special Test Scores Quick DASH Score: 40.9075 Goals Goals Goal 1:: Decrease B shoulder pain x 50% to aid with sleep Goal Time Frame: 4-6 Weeks Goal 2:: Increase B shoulder strength x 5 #F in all directions to aid with IADL's Goal Time Frame: 4-6 Weeks Goal 3:: I with HEP Goal Time Frame: 4-6 Weeks Anticipated Interventions Anticipated Interventions Patient/Client Instruction: Educate patient on: Condition and Plan of Care For the Purpose of:: To improve self management Therapeutic Exercise to Include: Strength training, Endurance training, Active ROM and Scapular Strength/Stabilization For the Purpose of:: To decrease pain, To increase ROM and To improve muscle performance and motor function Cryotherapy (ice pack, ice massage): Yes For the Purpose of:: To decrease pain Re-Evaluation Ending Re-evaluation ending: Please do not hesitate to contact me at [phone] by phone or Fax: if you have questions or concerns regarding this new plan of care! Sincerely, Benton Ceron, PT, ATC
--- NOTE | 2025-06-03 10:54 | HP.PTREVAL ---
Re-Evaluation Intro: Dr. Magda Ayala, DO, It has been my pleasure to treat PARESH LIVINGSTON over the last 12 visits for B shoulder pain. Please see the progress note below for an update on the physical therapy plan of care! Subjective Subjective: I couldnt sleep last night because if my pain Objective Objective/Function: L shoulder pain 10/30, R 6/10 B shoulder ROM is WFL and equal MMT: L shoulder flex= 5, abd= 11, IR= 11, ER= 5; R shoulder flex= 4, abd= 11, IR= 8, ER= 8 #F Pt is showing progress with pain and strength. Still limited with functional strength. Plan Plan Plan: 05/06/25- Cont B shoulder rot cuff strengthening, scap stab ex's, UBE, and HEP. Monitor soreness and pain throughout sessions, and look to do ex's bilaterally. Balance/Gait/Functional tests Balance/Special Test Scores Quick DASH Score: 31.8175 Goals Goals Goal 1:: Decrease B shoulder pain x 50% to aid with sleep Goal Time Frame: 4-6 Weeks Goal 2:: Increase B shoulder strength x 5 #F in all directions to aid with IADL's Goal Time Frame: 4-6 Weeks Goal 3:: I with HEP Goal Time Frame: 4-6 Weeks Anticipated Interventions Anticipated Interventions Patient/Client Instruction: Educate patient on: Condition and Plan of Care For the Purpose of:: To improve self management Therapeutic Exercise to Include: Strength training, Endurance training, Active ROM and Scapular Strength/Stabilization For the Purpose of:: To decrease pain, To increase ROM and To improve muscle performance and motor function Cryotherapy (ice pack, ice massage): Yes For the Purpose of:: To decrease pain Re-Evaluation Ending Re-evaluation ending: Please do not hesitate to contact me at [phone] by phone or if you have questions or concerns regarding this new plan of care! Sincerely, Benton Ceron, PT, ATC
--- NOTE | 2025-07-06 11:27 | HP.PTDCSUM ---
Discharge Summary D/C summary: It has been my pleasure to treat PARESH LIVINGSTON referred by Dr. Magda Ayala DO, with the diagnosis of B shoulder pain for a total of 19 visit(s). Discharge Date: Please see the following information for a summary of their discharge status. Subjective Subjective: I dont really have pain Pain R shoulder: Pain Intensity (Out of 10): 2 L shoulder: Pain Intensity (Out of 10): 2 Overall Improvement % Improvement: 80 Objective Objective/Function: B shoulder pain ranges from 2-8/10 MMT: L shoulder flex= 8, abd= 16, ER= 7, IR= 13 #F; R shoulder flex= 9, abd= 18, ER= 11, IR= 14 #F Pt is I with HEP Goals Goal 1:: Decrease B shoulder pain x 50% to aid with sleep Goal 2:: Increase B shoulder strength x 5 #F in all directions to aid with IADL's Goal 3:: I with HEP Plan Plan: Discharge to HEP D/C Information d/c sentence: If there are questions or concerns regarding this patient's physical therapy, please feel free to call me at [phone]. Thank you for the referral of this patient. Sincerely, Benton Ceron, PT, ATC Balance/Gait/Functional tests Balance/Special Test Scores Quick DASH Score: 13.6350 Improvement % Improvement: 80
== END 2025-07-06 12:23 | disposition home or self-care (01) ==
LOC: PT 10:30
PROVIDERS: PCP Internal Medicine; Visit Provider Internal Medicine
DX: M25.511 Pain in right shoulder (principal)
CPT/HCPCS: 97110; 97161; 97530